=== PATIENT | male | born 1945 | race Caucasian/White ===

== ENCOUNTER 2016-07-25 23:06 | Inpatient (IN) | payer OTHER ==
[2016-07-25 23:55] LABS: EOSINOPHIL 1.7 % (0-4.5); MCH 29.8 pg (25.7-33.7); MCHC 33.8 g/dl (32.0-35.9); MEAN CELL VOLUME 88.1 fl (80-96); MEAN PLT VOLUME 8.2 fl (7.5-11.1); NEUTROPHILS 49.9 % (42.8-82.8); PLATELET COUNT 169 K/MM3 (134-434); RDW 15.4 % (11.9-15.9); WHITE BLOOD COUNT 3.7 K/mm3 (4.0-10.0)
[2016-07-26 00:10] LABS: INR 1.01 (0.82-1.09); PROTHROMBIN TIME (PATIENT) 11.1 SEC (9.98-11.88)
[2016-07-26 00:36] LABS: ALBUMIN 3.8 g/dl (3.4-5.0); ALK PHOS 81 U/L (45-117); ANION GAP 9 (8-16); BILIRUBIN,TOTAL 0.5 mg/dL (0.2-1.0); CALCIUM 8.8 mg/dL (8.5-10.1); CO2 26 mmol/L (21-32); COCKROFT - GAULT 129.7; CREATININE 0.7 mg/dL (0.7-1.3); GLUCOSE,RANDOM 97 mg/dL (74-106); SGOT/AST 15 U/L (15-37); SGPT/ALT 17 U/L (12-78); TOT PROT 6.9 g/dl (6.4-8.2)
[2016-07-26] MEDS ORDERED: SODIUM CHLORIDE 1,000 ML IV STA (00:46)
--- NOTE | 2016-07-26 01:46 | PDOC ---
History of Present Illness - General History Source: Patient, Family, Old Records Exam Limitations: No Limitations - History of Present Illness Initial Comments: 07/26/16 01:46 The patient is a 70 year old male presenting with his family, with a significant past medical history of HTN Hepatitis C, chronic back pain, and stroke (with left-sided residual numbness), who presents to the emergency department with episodes of spitting blood that started today. He reports that as he arrived into the ED the bleeding had subsided. He also reports that he had an endoscopy 1 month ago. The patient denies chest pain, shortness of breath, headache and dizziness. Denies fever, chills, nausea, vomit, diarrhea and constipation. Allergies: None Past surgical history: Appendectomy, abdominal surgery due to ulcer, lower back surgery Social history: Cigarette use (pack a day) <Arnulfo Ramirez - Last Filed: 07/26/16 01:46> <Mai Das - Last Filed: 08/01/16 02:34> - General Chief Complaint: Vomiting Blood Stated Complaint: SPITTING BLOOD Time Seen by Provider: 07/25/16 23:12 Past History <Arnulfo Ramirez - Last Filed: 07/26/16 01:46> - Past Medical History CVA: Yes Hypercholesterolemia: Yes Psychiatric Problems: Yes (DEPRESSION) - Surgical History Abdominal Surgery: Yes (STOMACH EXCISION DUE TO ULCER) Appendectomy: Yes - Psycho/Social/Smoking Cessation Hx Suicidal Ideation: No Smoking History: Current every day smoker Have you smoked in the past 12 months: Yes Number of Cigarettes Smoked Daily: 10 Information on smoking cessation initiated: No 'Breaking Loose' booklet given: 03/11/14 Hx Alcohol Use: No Drug/Substance Use Hx: No <Mai Das - Last Filed: 08/01/16 02:34> - Past Medical History Allergies/Adverse Reactions: Allergies Allergy/AdvReac Type Severity Reaction Status Date / Time No Known Allergies Allergy Verified 07/25/16 23:25 Home Medications: Ambulatory Orders Gabapentin [Neurontin] 900 mg PO QID 03/03/14 Clopidogrel Bisulfate [Plavix -] 75 mg PO DAILY 07/26/16 Lisinopril 10 mg PO DAILY 07/26/16 Sertraline HCl [Zoloft -] 50 mg PO DAILY 07/26/16 Tamsulosin HCl [Flomax] 0.4 mg PO DAILY 07/26/16 Fentanyl 12 mcg TD Q27H 07/29/16 Folic Acid 1 mg PO DAILY 07/29/16 Miscellaneous Medical Supply [Outpatient Order] 1 each ASDIR #1 misc Oxycodone HCl 10 mg PO TID PRN 07/29/16 Oxycodone HCl 20 mg PO AM PRN 07/29/16 Simvastatin 40 mg PO HS 07/29/16 Review of Systems - Review of Systems Able to Perform ROS?: Yes Comments:: 07/26/16 01:46 GENERAL/CONSTITUTIONAL: No fever or chills. No weakness. HEAD, EYES, EARS, NOSE AND THROAT: No change in vision. No ear pain or discharge. No sore throat. CARDIOVASCULAR: No chest pain or shortness of breath RESPIRATORY: (+)Hemoptysis. No cough, wheezing GASTROINTESTINAL: No nausea, vomiting, diarrhea or constipation. GENITOURINARY: No dysuria, frequency, or change in urination. MUSCULOSKELETAL: No joint or muscle swelling or pain. No neck or back pain. SKIN: No rash NEUROLOGIC: No headache, vertigo, loss of consciousness, or change in strength/ sensation. ENDOCRINE: No increased thirst. No abnormal weight change HEMATOLOGIC/LYMPHATIC: No anemia, easy bleeding, or history of blood clots. ALLERGIC/IMMUNOLOGIC: No hives or skin allergy. <Arnulfo Ramirez - Last Filed: 07/26/16 01:46> *Physical Exam - Vital Signs Last Vital Signs Temp Pulse Resp BP Pulse Ox 98.2 F 83 20 146/72 96 07/25/16 23:25 07/25/16 23:25 07/25/16 23:25 07/25/16 23:25 07/25/16 23:25 - Physical Exam Comments: 07/26/16 01:46 GENERAL: Awake, alert, and fully oriented, in no acute distress HEAD: No signs of trauma, normocephalic, atraumatic EYES: PERRLA, EOMI, sclera anicteric, conjunctiva clear ENT: (+) Left mandibular ridge area of maseration, has not been wearing his dentures. Auricles normal inspection, hearing grossly normal, nares patent. Moist mucosa NECK: Normal ROM, supple, no lymphadenopathy, JVD, or masses LUNGS: No distress, speaks full sentences, clear to auscultation bilaterally HEART: Regular rate and rhythm, normal S1 and S2, no murmurs, rubs or gallops, peripheral pulses normal and equal bilaterally. ABDOMEN: Soft, nontender, normoactive bowel sounds. No guarding, no rebound. No masses EXTREMITIES: Normal inspection, Normal range of motion, no edema. No clubbing or cyanosis. NEUROLOGICAL: Cranial nerves II through XII grossly intact. Normal speech, normal gait, no focal sensorimotor deficits SKIN: Warm, Dry, normal turgor, no rashes or lesions noted. <Arnulfo Ramirez - Last Filed: 07/26/16 01:46> - Vital Signs Last Vital Signs Temp Pulse Resp BP Pulse Ox 98.2 F 83 20 146/72 96 07/25/16 23:25 07/25/16 23:25 07/25/16 23:25 07/25/16 23:25 07/25/16 23:25 <Mai Das - Last Filed: 08/01/16 02:34> ED Treatment Course - LABORATORY CBC & Chemistry Diagram: 07/25/16 23:42 07/25/16 23:42 - ADDITIONAL ORDERS Additional order review: Laboratory Results 07/25/16 07/25/16 23:42 23:42 INR 1.01 Sodium 136 Potassium 3.9 Chloride 101 Carbon Dioxide 26 D Anion Gap 9 BUN 10 Creatinine 0.7 Creat Clearance w eGFR > 60 Random Glucose 97 Calcium 8.8 Total Bilirubin 0.5 D AST 15 ALT 17 Alkaline Phosphatase 81 Total Protein 6.9 Albumin 3.8 07/25/16 23:42 RBC 4.55 MCV 88.1 MCHC 33.8 RDW 15.4 MPV 8.2 Neutrophils % 49.9 Lymphocytes % 38.6 D Monocytes % 8.8 Eosinophils % 1.7 Basophils % 1.0 - Medications Given in the ED: ED Medications Discontinued Medications Generic Name Dose Route Start Last Admin Trade Name Freq PRN Reason Stop Dose Admin Sodium Chloride 1,000 mls @ 1,000 mls/hr 07/26/16 00:46 07/26/16 01:05 Normal Saline - IV 07/26/16 01:45 1,000 mls/hr ASDIR STA Administration <Arnulfo Ramirez - Last Filed: 07/26/16 01:46> - LABORATORY CBC & Chemistry Diagram: 07/29/16 07:30 07/29/16 07:30 - ADDITIONAL ORDERS Additional order review: Laboratory Results 07/25/16 07/25/16 23:42 23:42 INR 1.01 Sodium 136 Potassium 3.9 Chloride 101 Carbon Dioxide 26 D Anion Gap 9 BUN 10 Creatinine 0.7 Creat Clearance w eGFR > 60 Random Glucose 97 Calcium 8.8 Total Bilirubin 0.5 D AST 15 ALT 17 Alkaline Phosphatase 81 Total Protein 6.9 Albumin 3.8 07/25/16 23:42 RBC 4.55 MCV 88.1 MCHC 33.8 RDW 15.4 MPV 8.2 Neutrophils % 49.9 Lymphocytes % 38.6 D Monocytes % 8.8 Eosinophils % 1.7 Basophils % 1.0 - RADIOLOGY Radiology Studies Ordered: Category Date Time Status SOFT TISSUE NECK CT WITH CONTR [CT] Stat CT Scan 07/26/16 00:02 Taken - Medications Given in the ED: ED Medications Discontinued Medications Generic Name Dose Route Start Last Admin Trade Name Freq PRN Reason Stop Dose Admin Sodium Chloride 1,000 mls @ 1,000 mls/hr 07/26/16 00:46 07/26/16 01:05 Normal Saline - IV 07/26/16 01:45 1,000 mls/hr ASDIR STA Administration <ThiagoMai Christina - Last Filed: 08/01/16 02:34> Medical Decision Making - Medical Decision Making 07/26/16 02:44 daughter Benedict Tran cell [phone] 07/26/16 03:25 70-year-old male presents with oral pharyngeal bleeding this evening. He denied any recent trauma. He said that he was not coughing at this time. He said essentially he was just seated at rest and his mouth filled with blood. On exam, he has both maxillary, mandibular arches are edentulous. He does not routinely wear his dentures He is on Plavix, oxycodone,, fentanyl patch, gabapentin Past medical history includes hepatitis C, several strokes, chronic neuropathic pain PCP is located [facility] Denied any fever, chills, nausea, vomiting, diarrhea, chest pain, abdominal pain , or cough. He denies any recent nosebleeds. In reviewing his labs, he was not anemic. His chemistries are essentially unremarkable. Scan of the neck revealed a mass at the base of his left tongue that was suspicious for neoplasm pt was admitted for concern of further bleeding and ENT consult 08/01/16 02:33 <Mai Das - Last Filed: 08/01/16 02:34> *DC/Admit/Observation/Transfer - Attestations Scribe Attestion: 07/26/16 01:47 Documentation prepared by Arnulfo Ramirez, acting as medical review specialist for Mai Das MD <Arnulfo Ramirez - Last Filed: 07/26/16 01:46> - Discharge Dispostion Admit: Yes <Mai Das - Last Filed: 08/01/16 02:34> Diagnosis at time of Disposition: Neuropathic pain, Tongue mass, Throat hemorrhage - Discharge Dispostion Disposition: HOME Condition at time of disposition: Improved - Prescriptions - Referrals
--- NOTE | 2016-07-26 02:35 | HP ---
CHIEF COMPLAINT: hemorrhage from the mouth PCP: Dr. Savannah Lindsey HISTORY OF PRESENT ILLNESS: 70 yr old man with HTN, hx of CVA x2 with residual unsteady gait, chronic neuropathic pain syndrome, hx of GI ulcers, presents with sudden bleeding from his mouth. He was sitting watching TV around 11pm when he spit out some blood and then his whole mouth filled with bright red blood, his daughter immediately brought him to the ED. He had eaten apple streusal around 8pm and an egg sandwich earlier for dinner around 8pm but did not finish either due to poor appetite. For the last month he has had poor appetite and has noticed weight loss and his clothes feeling looser, poor appetite is unusual for him. Two weeks he underwent endoscopy and colonoscopy by GI at [facility] for routine GI follow-up. He had dentures but does not use them on a regular basis, has not been to dentist in years. he is careful to eat soft foods, denies fish bones/hard chips or anything with rough edges. Denies pus in his mouth, pain with chewing/swallowing, swelling on his mouth, difficulty swalllowing/breathing, fever, facial pain, throat pain, cough, palpitations, chest pain, hematuria, falls, change in vision, sob. Has noticed easy bruising since starting plavix few years ago, especially on his lower legs and feet. ER course was notable for: (1) soft tissue neck CT Recent Travel: none PAST MEDICAL HISTORY: CVA: 2000, 2013 Bipolar disorder Hepatitis C - treated with "injections" 10 yrs ago, says he no longer has Hep C HTN HLD PAST SURGICAL HISTORY: appendectomy - age 10 thyroid cyst removal - "grammar school age" "ulcer operation" - duodenal and perforated peptic ulcer - Lumbar discectomy s/p [facility] 1989 Social History: Smoking: current everyday 2pk/day since he was 18 Alcohol: quit in s, was a heavy drinker in the past for few years Drugs: occasional marijuana smoker Family History: father from [place] age 65, brother from possible lung [place] Allergies No Known Allergies Allergy (Verified 07/25/16 23:25) Initial Vital Signs Temp Pulse Resp BP Pulse Ox 98.2 F 83 20 146/72 96 07/25/16 23:25 07/25/16 23:25 07/25/16 23:25 07/25/16 23:25 07/25/16 23:25 HOME MEDICATIONS: Went off zoloft for past year out of his own accord, recently started taking 50mg daily because he started to become "snappy" and easily agitated at family Home Medications Medication Instructions Recorded Simvastatin [Zocor] 80 mg PO HS 12/09/13 Clopidogrel Bisulfate [Plavix -] 75 mg PO DAILY 03/03/14 Docusate Sodium [Colace -] 100 mg PO DAILY 03/03/14 Gabapentin [Neurontin] 600 mg PO QID 03/03/14 Lisinopril [Prinivil] 5 mg PO DAILY 03/03/14 Oxycodone HCl/Acetaminophen 1 - 2 tab PO Q6H 03/03/14 [Percocet 10-325 mg Tablet] Sertraline HCl [Zoloft -] 100 mg PO DAILY 03/03/14 Aspirin Coated [Ecotrin -] 325 mg PO DAILY #30 tablet. 03/05/14 Folic Acid - 400 mcg PO DAILY #0 03/05/14 REVIEW OF SYSTEMS CONSTITUTIONAL: Present: loss of appetite, unintentional weight loss Absent: fever, chills, diaphoresis, generalized weakness, malaise HEENT: Absent: rhinorrhea, nasal congestion, throat pain, throat swelling, difficulty swallowing, mouth swelling, ear pain, eye pain, visual changes CARDIOVASCULAR: Absent: chest pain, syncope, palpitations, irregular heart rate, lightheadedness , peripheral edema RESPIRATORY: Absent: cough, shortness of breath, dyspnea with exertion, orthopnea, wheezing, stridor, hemoptysis GASTROINTESTINAL: Absent: abdominal pain, abdominal distension, nausea, vomiting, diarrhea, constipation, melena, hematochezia GENITOURINARY: Absent: dysuria, frequency, urgency, hesitancy, hematuria, flank pain, genital pain MUSCULOSKELETAL: Absent: myalgia, arthralgia, joint swelling, back pain, neck pain SKIN: Absent: rash, itching, pallor HEMATOLOGIC/IMMUNOLOGIC: Present: easy bruising, Absent: easy bleeding, lymphadenopathy, frequent infections ENDOCRINE: Absent: unexplained weight gain, heat intolerance, cold intolerance NEUROLOGIC: Present: unsteady gait, Absent: headache, focal weakness or paresthesias, dizziness, seizure, mental status changes, bladder or bowel incontinence PSYCHIATRIC: Absent: anxiety, depression, suicidal or homicidal ideation, hallucinations. PHYSICAL EXAMINATION Vital Signs - 24 hr 07/25/16 23:25 Temperature 98.2 F Pulse Rate 83 Respiratory 20 Rate Blood Pressure 146/72 O2 Sat by Pulse 96 Oximetry (%) GENERAL: Awake, alert, and fully oriented, in no acute distress. HEAD: Normal with no signs of trauma. no frontal/ethmoid/maxially sinus tenderness. EYES: Pupils equal, round and reactive to light, extraocular movements intact, sclera anicteric, conjunctiva clear. No lid lag. EARS, NOSE, THROAT: Ears normal, nares patent with left anterior nostril with scant dried blood, oropharynx with bright red blood originating from left lower base of junction between tongue and left cheek. no pus, erythema, ulcers, pigmentation changes noted. Moist mucous membranes, no lacerations on tongue or buccal mucosa. edentulism. NECK: Normal range of motion, supple without lymphadenopathy, JVD, or masses. no axillary/cervical/mandibular/occipital lymphadenopathy. LUNGS: Breath sounds equal, clear to auscultation bilaterally. No wheezes, and no crackles. No accessory muscle use. HEART: Regular rate and rhythm, normal S1 and S2 without murmur, rub or gallop. ABDOMEN: Soft, nontender, not distended, normoactive bowel sounds, no guarding, no rebound, no masses. well-healed periembilcal midline scar, two lateral laproscopic scars. MUSCULOSKELETAL: Normal range of motion at all joints. No bony deformities or tenderness. No CVA tenderness. UPPER EXTREMITIES: 2+ pulses, warm, well-perfused. No cyanosis. No clubbing. No peripheral edema. LOWER EXTREMITIES: 2+ pulses, warm, well-perfused. No calf tenderness. No peripheral edema. few scattered dark colored bruises 2-3cm on anterior right foot and wynne. left 1st toe with dark thickened toenail. NEUROLOGICAL: Cranial nerves II-XII intact. Normal speech. facial symmetry, 5/ 5 strength in b/l hand wire communications engineer/dorsi and plantar flexion. decreased sensation in left side of body in face/ue/le. PSYCHIATRIC: Cooperative. Good eye contact. Appropriate mood and affect. SKIN: Warm, dry, normal turgor, no rashes noted, normal capillary refill. Laboratory Results - last 24 hr 07/25/16 07/25/16 07/25/16 23:42 23:42 23:42 WBC 3.7 L RBC 4.55 Hgb 13.5 Hct 40.0 MCV 88.1 MCHC 33.8 RDW 15.4 Plt Count 169 MPV 8.2 Neutrophils % 49.9 Lymphocytes % 38.6 D Monocytes % 8.8 Eosinophils % 1.7 Basophils % 1.0 INR 1.01 Sodium 136 Potassium 3.9 Chloride 101 Carbon Dioxide 26 D Anion Gap 9 BUN 10 Creatinine 0.7 Creat Clearance w eGFR > 60 Random Glucose 97 Calcium 8.8 Total Bilirubin 0.5 D AST 15 ALT 17 Alkaline Phosphatase 81 Total Protein 6.[address] soft tissue of neck: mass like area of enhancement seen at the base of the tongue on the left (images 56 through 63) seen medial to the mylohyoid. 1.5-1.9 cm, a central ovoid hypoventilation focus measures approx 3-4mm in diameter and could represent a calculus or possibly an aneurysm. no cervial adenopathy. no collection or hematoma is seen in the soft tissues of the neck. ASSESSMENT/PLAN: 70 yr old man with HTN, hx of CVA on full does ASA/plavix, current smoker presents with oropharyngeal hemorrhage found to have mass admitted for further evaluation - medications will need to be verified in the morning, patient does not have his list with him - placed on fall precautions d/t unsteady gait #Orophyarngeal mass/hemorrhage - NPO except for meds - consult for ENT, Dr. Rivera - difficult to pack given location of bleed and concern for choking on any packing material that may be placed there, currently patient is comfortable/not in respiratory distress - it is a possibility that he may have had an abscess due to minor trauma during endoscopy but given extensive smoking history, suspicious for malignancy , may need biopsy. - repeat CBC to monitor H/H - hold anticoagulation(plavix and ASA 325mg) - zofran prn for nausea due to swallowing of blood #HTN - lisinopril 10mg po daily #HLD - Lipitor 80mg po 1 tablet HS #Neuropathic pain, chronic - percocet 10 mg q6hr - fentanyl patch 12mg q72hr #Bipolar disorder - zoloft 50mg po qdaily #nicotine dependence - smoking cessation counseling provided - pt declined NRT, states understanding that he cannot leave hospital room to smoke #DVT - SCD's, avoid medical ac d/t active bleed #diet - npo except meds/ice chips Visit type - Emergency Visit Emergency Visit: Yes ED Registration Date: 07/26/16 Care time: The patient presented to the Emergency Department on the above date and was hospitalized for further evaluation of their emergent condition. - New Patient This patient is new to me today: Yes Date on this admission: 07/26/16 - Critical Care Critical Care patient: No
[2016-07-26] MEDS ORDERED: ONDANSETRON 4 MG/2 ML VIAL IVPUSH PRN (03:54)
[2016-07-26] MEDS ORDERED: FENTANYL PATCH WASTE TD PRN (04:02)
[2016-07-26 04:10] LABS: INR 1.06 (0.82-1.09); PROTHROMBIN TIME (PATIENT) 11.7 SEC (9.98-11.88)
[2016-07-26 04:40] VITALS: BMI 25.9
--- NOTE | 2016-07-26 05:32 | PN ---
Teaching Attending Note Name of Resident: Sandeep Richards ATTENDING PHYSICIAN STATEMENT I saw and evaluated the patient. I reviewed the resident's note and discussed the case with the resident. I agree with the resident's findings and plan as documented. SUBJECTIVE: 70 year old male presents c/o 1 day history of bleeding from posterior aspect of his tongue . Denies dizziness Denies syncope Denies dyspnea PAST MEDICAL HISTORY: CVAx 2 Bipolar disorder Hepatitis C remote HTN HLD PAST SURGICAL HISTORY: appendectomy thyroid cyst removal duodenal and perforated peptic ulcer Lumbar discectomy recent Endoscopy Social History: Smokin p/y Alcohol: history of abuse, quit in 1969 Drugs: occasional marijuana smoker Family History : Father [place] - 65 yo Brother - lung [place] Allergies : NKDA MEDS: Home Medications Medication Instructions Recorded Gabapentin [Neurontin] 900 mg PO QID 03/03/14 Oxycodone HCl/Acetaminophen 1 - 2 tab PO Q6H 03/03/14 [Percocet 10-325 mg Tablet] Clopidogrel Bisulfate [Plavix -] 75 mg PO DAILY 07/26/16 Sertraline HCl [Zoloft -] 50 mg PO DAILY 07/26/16 OBJECTIVE: Vital Signs Temperature 97.9 F 07/26/16 02:35 Pulse Rate 74 07/26/16 02:35 Respiratory Rate 18 07/26/16 02:35 Blood Pressure 142/66 07/26/16 02:35 O2 Sat by Pulse Oximetry (%) 96 07/26/16 02:35 GENERAL: Awake, alert, and fully oriented HEAD: Normal with no signs of trauma. EYES: Pupils equal, round and reactive to light EARS, NOSE, THROAT: Poorly visible ulceration of posterior buccal mucose and the base of the tongue on the left , blood clots. NECK: no axillary/cervical/mandibular/occipital lymphadenopathy. LUNGS: Breath sounds equal, clear to auscultation bilaterally. No wheezes, and no crackles. No accessory muscle use. HEART: Regular rate and rhythm, normal S1 and S2 without murmur, rub or gallop. ABDOMEN: Soft, nontender, not distended, normoactive bowel sounds, no guarding, no rebound, no masses. MUSCULOSKELETAL: Normal range of motion at all joints. No bony deformities or tenderness. No CVA tenderness. UPPER EXTREMITIES: 2+ pulses, No cyanosis. No clubbing. No peripheral edema. LOWER EXTREMITIES: 2+ pulses, warm, well-perfused. No calf tenderness. No peripheral edema. Onychomycosis. NEUROLOGICAL: Cranial nerves II-XII intact. Normal speech. facial symmetry, 5/ 5 strength in b/l hand material planning analyst/dorsi and plantar flexion. PSYCHIATRIC: Cooperative. Good eye contact. Appropriate mood and affect. SKIN: Warm, dry, normal turgor, no rashes noted, normal capillary refill. CBC, BMP 07/25/16 23:42 07/25/16 23:42 Scan of the neck revealed a mass at the base of his left tongue that was suspicious for neoplasm ASSESSMENT AND PLAN: 1. Bleeding from the mass/ulceration of the tongue - in a patient with history of smoking, suspicious for malignancy . No respiratory compromise of airway obstruction is present at this time. - aspiration precautions - monitor hemoglobin for possible drop due to an ongoing oozing - ENT evaluation for possible packing and biopsy - NPO - hold plavix for now 2 DVT ppx with SCD
[2016-07-26] MEDS ORDERED: ACETAMINOPHEN 1000 MG/100 ML VIAL (NON FORMULARY) IVPB ONE (06:08)
[2016-07-26] MEDS: oxyCODONE HCL 5 MG TABLET PO SCH ×2 (06:10→11:41)
[2016-07-26] MEDS: ACETAMINOPHEN 325 MG TABLET (FP) PO SCH (06:11)
[2016-07-26] MEDS: SODIUM CHLORIDE 1,000 ML IV SCH (06:28)
[2016-07-26] MEDS: GABAPENTIN 300 MG CAPSULE (FP) PO SCH ×4 (06:33→23:39)
[2016-07-26 07:15] LABS: MCH 30.5 pg (25.7-33.7); MCHC 34.4 g/dl (32.0-35.9); MEAN CELL VOLUME 88.8 fl (80-96); MEAN PLT VOLUME 8.5 fl (7.5-11.1); PLATELET COUNT 159 K/MM3 (134-434); RDW 16.1 % (11.9-15.9)
--- NOTE | 2016-07-26 10:00 | RAPID ---
Physical Examination Vital Signs: Vital Signs Temperature 97.9 F 07/26/16 02:35 Pulse Rate 106 H 07/26/16 08:30 Respiratory Rate 18 07/26/16 08:30 Blood Pressure 154/68 07/26/16 09:30 O2 Sat by Pulse Oximetry (%) 96 07/26/16 02:35 Constitutional: Yes: Anxious, Moderate Distress HENT: Yes: Atraumatic, Other (oropharynx covered with bright red blood, blood seen near posterior buccal mucosa and the left base of the tongue) Cardiovascular: Yes: Regular Rate and Rhythm, S1, S2 Respiratory: Yes: Regular Gastrointestinal: Yes: Normal Bowel Sounds, Soft Peripheral Pulses WNL: Yes Integumentary: Yes: WNL Neurological: Yes: Alert, Oriented ...Motor Strength: WNL Psychiatric: Yes: Alert, Oriented Labs: JEOVANNY, DAVID 07/26/16 06:20 Rapid Response - Rapid Response Assessment: rapid response called on a 70year old male with pmh of CVA x2 with residual unsteady gait, chronic neuropathic pain syndrome, GI ulcers who presented to the ED with sudden bleeding from his mouth.The patient was in the bathroom having a bowel movement and he felt lightheaded, weak as if he was going to pass out. the bleeding in his moth has somewhat increased, he is swallowing/ spitting the blood and vomited a few times as well. Pt denies any constipation/ diarrhea, no hematochezia, melena, no hemoptysis. No chest pain, palpitation, no shortness of breath, no new focal neurological deficits. Pt is on plavix at home, last use was yesterday. CBC, [facility] 07/26/16 06:20 07/25/16 23:42 Impression Presyncope r/o hypovolemic, hemorrhagic shock from oral cavity bleeding vs Vasovagal Plan resume IV fluid CBC in 2 hours Consider Platelets transfusion Consider PRBC transfusion Consider FFP transfusion ENT consult stat Primary team made aware, the will follow up any further care for this patient.
[2016-07-26] MEDS ORDERED: METOCLOPRAMIDE HCL INJECTION 10 MG/2 ML VIAL IVPUSH ONE (11:02)
[2016-07-26] MEDS ORDERED: morphine CARPU-JECT 2 MG/1 ML DISP.SYRIN IVPUSH PRN (11:08)
[2016-07-26] MEDS: SERTRALINE HCL 50 MG TABLET (FP) PO SCH (11:41)
[2016-07-26] MEDS: LISINOPRIL 10 MG TABLET (FP) PO SCH (11:41)
[2016-07-26] MEDS ORDERED: METOCLOPRAMIDE HCL INJECTION 10 MG/2 ML VIAL IVPB ONE (11:45)
--- NOTE | 2016-07-26 12:25 | CON.ENT ---
Consult Consult Specialty:: ENT Referred by:: Dr. Richards Reason for Consultation:: oral bleeding - History of Present Illness Chief Complaint: bleeding from mouth/throat History of Present Illness: 70 yo M with hx CVA, on Plavix, hx chronic neuropathy rx opioid analgesics prn yesterday presented with oral bleeding, no precipitating factors brought to [facility] ER H/H stable, CT scan neck shows suspicious area left base of tongue to oropharynx 2 cm faintly enhancing airway stable, pt admitted for further evaluation and management. this morning pt had significant oral bleeding Hgb 6 AM was 12.9, plt count 120's, platelet transfusion ordered subsided but then bleeding recurred with significant active bleeding, expectoration of clots. 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 - Past Surgical History Past Surgical History: Yes: Appendectomy Additional Surgical History: thyroid cyst removal (age 10) - Alcohol/Substance Use Hx Alcohol Use: No History of Substance Use: reports: None - Smoking History Smoking history: Current every day smoker Have you smoked in the past 12 months: Yes Aproximately how many cigarettes per day: 10 - Social History ADL: Independent Home Medications - Allergies Allergies/Adverse Reactions: Allergies Allergy/AdvReac Type Severity Reaction Status Date / Time No Known Allergies Allergy Verified 07/25/16 23:25 - Home Medications Home Medications: Ambulatory Orders Gabapentin [Neurontin] 900 mg PO QID 03/03/14 Oxycodone HCl/Acetaminophen [Percocet 10-325 mg Tablet] 1 - 2 tab PO Q6H Clopidogrel Bisulfate [Plavix -] 75 mg PO DAILY 07/26/16 Lisinopril 10 mg PO DAILY 07/26/16 Sertraline HCl [Zoloft -] 50 mg PO DAILY 07/26/16 Tamsulosin HCl [Flomax] 0.4 mg PO DAILY 07/26/16 Family Disease History - Family Disease History Family Disease History: Heart Disease: Father ([place] at 65), Other: Mother (old age ) Physical Exam-ENT Vital Signs: Vital Signs Temperature 97.9 F 07/26/16 02:35 Pulse Rate 106 H 07/26/16 08:30 Respiratory Rate 18 07/26/16 08:30 Blood Pressure 154/68 07/26/16 09:30 O2 Sat by Pulse Oximetry (%) 96 07/26/16 02:35 Constitutional: Yes: Well Nourished, Anxious, Mild Distress Head: Yes: WNL Face: Yes: WNL Eyes: Yes: WNL Nose: Yes: Other (dry blood left and right nostrils, no active bleeding, breathing ok) Nasal Passage: Yes: WNL Oral/Pharynx: Yes: Other (active bleeding; tongue mobile, poor dentition, no oral cavity lesions ++left tonsil fossa bleeding, also pedunculated left oropharyngeal polypoid lesion (smooth, white); tongue protrudes midline, voice clear, active gag reflex, no stridor or respiratory distress) Outer Ear: Yes: WNL Neck: Yes: WNL Respiratory: Yes: WNL Imaging - Results Chest X-ray: Report Reviewed, Image Reviewed Cat Scan: Report Reviewed, Image Reviewed (2 cm suspicious lesion let base of tongue/oropharynx 1.2 cm paratracheal node no other mass or adenopathy described ) Problem List - Problems (1) Throat hemorrhage Assessment/Plan: new onset active bleeding left tonsil fossa site identified control of oropharyngeal/hypopharyngeal hemorrhage performed: topical xylocaine 4% silver nitrate cauterization, direct pressure, gelfoam packing placed controlled eventually pt has active gag reflex which sometimes accelerated bleeding during control procedure controlled, rechecked at intervals up to 30 minutes after, no recurrence of bleeding, pt resting comfortably Plavix use adds to bleeding potential (last dose 5-2-17 6 am) suspected site is the abnormal area on CT scan, oropharyngeal/?hypopharyngeal neoplasm suspected pt at risk because of long smoking history (1 ppd x 40 years) SaO2 94% RA, 98% on O2 2 L NC HR 95-105 BP 150's systolic 1:00 pm: pt reports more bleeding exam: fresh blood left oropharynx Recommend: to OR today for direct laryngoscopy, control of pharyngeal hemorrhage , biopsy discussed in detail with pt and his brother Hank no prior problems with anesthesia, has been NPO since admission potential complications including but not limited to anesthesia, bleeding, infection, pain, gum irritation (edentulous) discussed in detail. questions answered fully. discussed with anesthesiologists Critical Care time: 90 minutes Henry Rivera MD FACS Code(s): R04.1 - HEMORRHAGE FROM THROAT (2) Tongue mass Assessment/Plan: no known history of prior problem identified on CT scan after admission through ER last night pt at risk for upper airway malignancy because of long smoking history (40 pack yrs) pt will need laryngoscopy, biopsy of area in question deferred for today because of acute active bleeding no palpable adenopathy, no pathologically enlarged lymph nodes described on CT scan of neck report CXR no masses, mild COPD changes. Code(s): R22.0 - LOCALIZED SWELLING, MASS AND LUMP, HEAD
[2016-07-26 12:55] LABS: MCH 30.3 pg (25.7-33.7); MCHC 34.1 g/dl (32.0-35.9); MEAN PLT VOLUME 8.4 fl (7.5-11.1); PLATELET COUNT 222 K/MM3 (134-434); RDW 15.3 % (11.9-15.9)
--- NOTE | 2016-07-26 12:59 | MSN ---
Progress Note (SOAP) - Subjective Chief Complaint: Bleeding from mouth History of Present Illness: Patient is a 70 y/o male w/ PMHx HTN, CVA (2001), TIA (~2014), chronic left sided neuropathic pain, GI ulcers, and current every day smoker who is admitted for hemorrhagic mass found in the left oropharynx. Pt was sitting upright in bed this morning; awake, alert, in no acute distress. Pt continues to bleed from the lesion in his oropharynx. Pt admits to unintentional weight loss and decreased appetite for the last month. Complains of new onset RODRIGUEZ/SOB/Nausea. Denies f/cp/abd pain/pain with swallowing or eating/impaired hearing/new onset visual changes. - Current Medications Current Medications: Active Medications Acetaminophen (Tylenol -) 325 mg PO Q6HPO [facility] Last Admin: 07/26/16 06:11 Dose: 325 mg Atorvastatin Calcium (Lipitor -) 80 mg PO HS [facility] Fentanyl (Duragesic 12mcg Patch -) 1 patch TD Q72H [facility] Stop: 08/02/16 16:59 Gabapentin (Neurontin -) 900 mg PO Q6HPO [facility] Last Admin: 07/26/16 11:41 Dose: Not Given Sodium Chloride (Normal Saline -) 1,000 mls @ 75 mls/hr IV ASDIR [facility] Last Admin: 07/26/16 06:28 Dose: 75 mls/hr Lisinopril (Prinivil) 10 mg PO DAILY [facility] Last Admin: 07/26/16 11:41 Dose: Not Given Miscellaneous (Duragesic Patch Waste) 1 each TD PRN PRN PRN Reason: PAIN Morphine Sulfate (Morphine Injection -) 1 mg IVPUSH Q4H PRN PRN Reason: PAIN Last Admin: 07/26/16 11:37 Dose: 1 mg Ondansetron HCl (Zofran Injection) 4 mg IVPUSH Q6H PRN PRN Reason: NAUSEA AND/OR VOMITING Last Admin: 07/26/16 11:35 Dose: 4 mg Oxycodone HCl (Roxicodone -) 10 mg PO Q6HPO [facility] Last Admin: 07/26/16 11:41 Dose: Not Given Sertraline HCl (Zoloft -) 50 mg PO DAILY [facility] Last Admin: 07/26/16 11:41 Dose: Not Given - Objective Vital Signs: Vital Signs Temperature 97.9 F 07/26/16 02:35 Pulse Rate 106 H 07/26/16 08:30 Respiratory Rate 18 07/26/16 08:30 Blood Pressure 154/68 07/26/16 09:30 O2 Sat by Pulse Oximetry (%) 96 07/26/16 02:35 Constitutional: Yes: No Distress, Calm Eyes: Yes: Conjunctiva Clear, EOM Intact HENT: Yes: Normocephalic, Other (Hemorrhagic lesion found at the left tongue base that extends and involves the left lateral wall of oropharynx) Neck: Yes: Supple, Trachea Midline Cardiovascular: Yes: Tachycardia, S1. No: S2 (faint) Respiratory: Yes: Regular, CTA Bilaterally Gastrointestinal: Yes: Normal Bowel Sounds, Soft. No: Tenderness Peripheral Pulses WNL: Yes Peripheral Pulses: Left Radial: 2+, Right Radial: 2+, Left Doralis Pedis: 2+, Right Dorsalis Pedis: 2+ Edema: No Neurological: Yes: Alert, Oriented, Cran Nerves II-XII Intact, Loss of Sensation (left sided- pt states this is normal 2/2 pain medications) Psychiatric: Yes: Alert, Oriented Labs Lab Results: CBC,CMP WBC 6.0 K/mm3 (4.0-10.0) 07/26/16 12:35 RBC 3.81 M/mm3 (4.00-5.60) L 07/26/16 12:35 Hgb 11.6 GM/dL (11.7-16.9) L D 07/26/16 12:35 Hct 33.9 % (35.4-49) L 07/26/16 12:35 MCV 89.0 fl (80-96) 07/26/16 12:35 MCHC 34.1 g/dl (32.0-35.9) 07/26/16 12:35 RDW 15.3 % (11.9-15.9) 07/26/16 12:35 Plt Count 222 K/MM3 (134-434) D 07/26/16 12:35 MPV 8.4 fl (7.5-11.1) 07/26/16 12:35 Neutrophils % 49.9 % (42.8-82.8) 07/25/16 23:42 Lymphocytes % 38.6 % (8-40) D 07/25/16 23:42 Monocytes % 8.8 % (3.8-10.2) 07/25/16 23:42 Eosinophils % 1.7 % (0-4.5) 07/25/16 23:42 Basophils % 1.0 % (0-2.0) 07/25/16 23:42 Sodium 136 mmol/L (136-145) 07/25/16 23:42 Potassium 3.9 mmol/L (3.5-5.1) 07/25/16 23:42 Chloride 101 mmol/L (98-107) 07/25/16 23:42 Carbon Dioxide 26 mmol/L (21-32) D 07/25/16 23:42 Anion Gap 9 (8-16) 07/25/16 23:42 BUN 10 mg/dL (7-18) 07/25/16 23:42 Creatinine 0.7 mg/dL (0.7-1.3) 07/25/16 23:42 Creat Clearance w eGFR > 60 (>60) 07/25/16 23:42 POC Glucometer 152 UNITS (()) 07/26/16 09:49 Random Glucose 97 mg/dL (74-106) 07/25/16 23:42 Calcium 8.8 mg/dL (8.5-10.1) 07/25/16 23:42 Total Bilirubin 0.5 mg/dL (0.2-1.0) D 07/25/16 23:42 AST 15 U/L (15-37) 07/25/16 23:42 ALT 17 U/L (12-78) 07/25/16 23:42 Alkaline Phosphatase 81 U/L (45-117) 07/25/16 23:42 Total Protein 6.9 g/dl (6.4-8.2) 07/25/16 23:42 Albumin 3.8 g/dl (3.4-5.0) 07/25/16 23:42 Imaging - Results Chest X-ray: Report Reviewed, Image Reviewed (No acute pathology- no changes when compared to previous x-ray) Cat Scan: Report Reviewed, Image Reviewed (Focal enhancing mass like density ni the left tongue base extending and involving the left lateral wall of oropharynx ) Assessment/Plan Patient is a 70 y/o male w/ PMHx HTN, CVA (2000), TIA (~2015), chronic left sided neuropathic pain, GI ulcers, and current every day smoker who is admitted for hemorrhagic mass found in the left oropharynx. Hemorrhagic mass in oropharynx -NPO -ENT Dr. Rivera consulted: Initial attempts failed to control bleeding with silver nitrate cauterization and gelfoam packing. Recommended OR for direct laryngoscopy to control pharyngeal hemorrhage and biopsy. Risks and benefits were discussed with patient. -Monitor H/H q4h -ASA/Plavix held -transfuse 1 unit of platelets -consider transfusion 1 unit RBCs -IV Zofran prn HTN -Lisinopril 10mg qd HLD -Lipitor 80mg qhs Chronic Pain -IV Morphine 1mg Q4H prn since pt NPO, nauseous, and actively vomiting -Oxycodone 10mg Q6H -Fentanyl Patch 12mg q72h BPH -Tamsulosin ?dose -Confirm with pt pharmacy Bipolar -Zoloft 50mg qd DVT prophylaxis -SCDs
--- NOTE | 2016-07-26 13:18 | PN ---
Physical Exam: SUBJECTIVE: Patient seen and examined Patient resting in bed, in mod-severe distress. afebrile and hemodynamically stable. Has been continuously bleeding from mouth and vomiting blood, reports diffuse pain and sever nausea. Rapid response was called this morning because patient became flushed and dizzy while defacating, near syncopal. vital were stable and it was decided to be vasovagl. ENT evaluated this am. Denies f/c, chest pain, palpitations, sob, cough, dysuria. OBJECTIVE: Vital Signs Period Temp Pulse Resp BP Sys/Najera Pulse Ox Last 24 Hr 106 18 127-154/56-68 GENERAL: The patient is awake, alert, and fully oriented, in no acute distress. HEAD: Normal with no signs of trauma. EYES: PERRL, extraocular movements intact, sclera anicteric, conjunctiva clear. No ptosis. ENT: Ears normal, nares patent, blood in nares, oropharynx bloody, L tonsillar small polyp like lesion or clot, moist mucous membranes. NECK: Trachea midline, full range of motion, supple no cervical or supraclavicular adenopathy LUNGS: Breath sounds equal, clear to auscultation bilaterally, no wheezes, no crackles, no accessory muscle use. HEART: Regular rate and rhythm, S1, S2 without murmur, rub or gallop. ABDOMEN: Soft, nontender, nondistended, normoactive bowel sounds, no guarding, no rebound, no hepatosplenomegaly, no masses. EXTREMITIES: 2+ pulses, warm, well-perfused, no edema. NEUROLOGICAL: Cranial nerves II through XII intact. Normal speech, strength 5/5 b/l, brachial reflexes 2+ b/l, patellar 1+ b/l PSYCH: Normal mood, normal affect. SKIN: Warm, dry Laboratory Results - last 24 hr 07/26/16 07/26/16 07/26/16 03:41 03:41 04:57 WBC RBC Hgb Hct MCV MCHC RDW Plt Count MPV INR 1.06 POC Glucometer Blood Type A POSITIVE A POSITIVE Antibody Screen Negative 07/26/16 07/26/16 07/26/16 06:20 09:49 12:35 WBC 5.0 D 6.0 RBC 4.21 3.81 L Hgb 12.9 11.6 L D Hct 37.4 33.9 L MCV 88.8 89.0 MCHC 34.4 34.1 RDW 16.1 H 15.3 Plt Count 159 222 D MPV 8.5 8.4 INR POC Glucometer 152 Blood Type Antibody Screen Active Medications Generic Name Dose Route Start Last Admin Trade Name Freq PRN Reason Stop Dose Admin Acetaminophen 325 mg 07/26/16 06:15 07/26/16 06:11 Tylenol - PO 325 mg Q6HPO CAYLA Administration Atorvastatin Calcium 80 mg 07/26/16 22:00 Lipitor - PO HS CAYLA Fentanyl 1 patch 07/27/16 17:00 Duragesic 12mcg Patch - TD 08/02/16 16:59 Q72H CAYLA Gabapentin 900 mg 07/26/16 06:30 07/26/16 11:41 Neurontin - PO Not Given Q6HPO CAYLA Sodium Chloride 1,000 mls @ 75 mls/hr 07/26/16 05:00 07/26/16 06:28 Normal Saline - IV 75 mls/hr ASDIR CAYLA Administration Lisinopril 10 mg 07/26/16 10:00 07/26/16 11:41 Prinivil PO Not Given DAILY [facility] Miscellaneous 1 each 07/26/16 04:02 Duragesic Patch Waste TD PRN PRN PAIN Morphine Sulfate 1 mg 07/26/16 11:08 07/26/16 11:37 Morphine Injection - IVPUSH 1 mg Q4H PRN Administration PAIN Ondansetron HCl 4 mg 07/26/16 03:54 07/26/16 11:35 Zofran Injection IVPUSH 4 mg Q6H PRN Administration NAUSEA AND/OR VOMITING Oxycodone HCl 10 mg 07/26/16 06:15 07/26/16 11:41 Roxicodone - PO Not Given Q6HPO [facility] Sertraline HCl 50 mg 07/26/16 10:00 07/26/16 11:41 Zoloft - PO Not Given DAILY [facility] ASSESSMENT/PLAN: CT soft tissue of neck: mass like area of enhancement seen at the base of the tongue on the left (images 56 through 63) seen medial to the mylohyoid. 1.5-1.9 cm, a central ovoid hypoventilation focus measures approx 3-4mm in diameter and could represent a calculus or possibly an aneurysm. no cervial adenopathy. no collection or hematoma is seen in the soft tissues of the neck. 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 and unsteady gait, TIA 2014, on full does ASA /plavix, who presents with oropharyngeal hemorrhage found to have L mylohyoid mass Left Orophyarngeal mass with acute hemorrhage -NPO -ENT hemostasis failed, will proceed to emergency endoscopy today for cauterization and biopsy -suspicious for malignancy in a smoker -monitor h/h -zofran IV nausea -hold plavix and ASA 325mg -1 U platelets now -consider MRI once acute bleed resolves hematemesis -due to ingestion of large amount of blood HTN -lisinopril 10mg po daily HLD -Lipitor 80mg po 1 tablet HS Chronic Neuropathic pain -residual from stroke on L side of body -fentanyl patch 12mg q72hr -morphine IV pain -cant tolerate PO percocet Bipolar disorder -zoloft 50mg po daily if tolerated po nicotine dependence -smoking cessation counseling provided -pt declined NRT FEN NS@75 stable lytes NPO SCD Dispo: med aleida Problem List - Problems (1) Throat hemorrhage Code(s): R04.1 - HEMORRHAGE FROM THROAT (2) Tongue mass Code(s): R22.0 - LOCALIZED SWELLING, MASS AND LUMP, HEAD (4) Weakness on left side of face Code(s): R29.810 - FACIAL WEAKNESS (5) Depression Code(s): F32.9 - MAJOR DEPRESSIVE DISORDER, SINGLE EPISODE, UNSPECIFIED (6) Hypertension Code(s): I10 - ESSENTIAL (PRIMARY) HYPERTENSION (7) HLD (hyperlipidemia) Code(s): E78.5 - HYPERLIPIDEMIA, UNSPECIFIED (8) Smoker Code(s): F17.200 - NICOTINE DEPENDENCE, UNSPECIFIED, UNCOMPLICATED (9) Smoker unmotivated to quit Code(s): F17.200 - NICOTINE DEPENDENCE, UNSPECIFIED, UNCOMPLICATED (10) Smoker within last 12 months Code(s): Z87.891 - PERSONAL HISTORY OF NICOTINE DEPENDENCE Visit type - Emergency Visit Emergency Visit: Yes ED Registration Date: 07/26/16 Care time: The patient presented to the Emergency Department on the above date and was hospitalized for further evaluation of their emergent condition. - New Patient This patient is new to me today: Yes Date on this admission: 07/26/16 - Critical Care Critical Care patient: No - Discharge Referral Referred to [facility] Med P.C.: No
--- NOTE | 2016-07-26 13:58 | EKG ---
Test Reason : Blood Pressure : / mmHG Vent. Rate : 063 BPM Atrial Rate : 063 BPM P-R Int : 170 ms QRS Dur : 088 ms QT Int : 412 ms P-R-T Axes : 069 060 064 degrees QTc Int : 421 ms POOR DATA QUALITY, INTERPRETATION MAY BE ADVERSELY AFFECTED NORMAL SINUS RHYTHM NORMAL ECG WHEN COMPARED WITH ECG OF 03-MAR-2014 22:03, NO SIGNIFICANT CHANGE WAS FOUND Confirmed by DONI SUN MD ([id number]) on 07/26/2016 1:57:49 PM Referred By: Confirmed By:DONI SUN MD
[2016-07-26] MEDS ORDERED: DEXAMETHASONE SOD PHOSPHATE 4 MG/1 ML VIAL ONE (14:47)
[2016-07-26] MEDS ORDERED: NEOSTIGMINE METHYLSULFATE 0.5 MG/ML - 10 ML MDV ONE (14:55)
[2016-07-26] MEDS ORDERED: GLYCOPYRROLATE 0.2 MG/1 ML VIAL ONE (14:55)
--- NOTE | 2016-07-26 15:13 | OP ---
Operative Note - Note: Operative Date: 07/26/16 ([id number]) Pre-Operative Diagnosis: oropharyngeal hemorrhage, lesion of angelo and hypopharynx Operation: direct laryngoscopy, control of oropharyngeal hemorrhage, biopsy of left hypopharyngeal lesion, exicision of left oropharyngeal lesion, examination of base of tongue under anesthesia, orogastric intubation with evacuation of stomach contents. Findings: base of tongue normal to palpation bilaterally normal vallecula, epiglottis and endolarynx left hypopharyngeal cavitary lesion (~2cm) with slightly exophytic lining, biopsy obtained left oropharyngeal lesion, 1.5 cm polypoid bleeding primarily from the cavitary lesion stomach had abundant bloody fluid >100 cc evacuated . Post-Operative Diagnosis: Same as Pre-op Surgeon: Henry Rivera Anesthesiologist/CREW MEMBER: Lilia Santo MD Anesthesia: General Specimens Removed: 1. left hypopahryngeal lesion, ulcerated. 2. left oropharyngeal lesion, polypoid Estimated Blood Loss (mls): 5 Blood Volume Replaced (mls): 0 Operative Report Dictated: Yes
[2016-07-26] MEDS ORDERED: LACTATED RINGERS SOLUTION 1,000 ML IV SCH (15:30)
[2016-07-26] MEDS: morphine CARPU-JECT 2 MG/1 ML DISP.SYRIN IVPUSH PRN (17:55)
--- NOTE | 2016-07-26 17:59 | PN ---
Teaching Attending Note Name of Resident: Cindi Gómez ATTENDING PHYSICIAN STATEMENT I saw and evaluated the patient. I reviewed the resident's note and discussed the case with the resident. I agree with the resident's findings and plan as documented. SUBJECTIVE:seen at 11 am . no fever , or chills , cont to have bleeding at that time nausea and vomiting OBJECTIVE: mild distress , nauseated. vomited after oropharynx exam CV : RRR Lungs : CTAB ext : no edema HEENT: dry blood on nostrils and mouth. fresh blood in bucket . fresh blood in mouth , a small lump in L oral cavity between the base of the tongue and the back molars . exam induced gag and vomit ASSESSMENT AND PLAN: 70 y/o man with h/o smoking, HTn, CVA s/p L paresthesis and L sided pain syndrome who presented with oral bleed , was found to have a bleeding oral mass 1- Bleeding from an oral mass. likely cancer from long h/o smoking. bed side eval by ENt was done with chemical cauterization , with no success OR eval with excision of oral lesion was done . bleeding stopped gave 1 unit of plt this afternoon repeat H&H this evening . pain control , small dose of morphine , since swallowing might be affected. cont fentanyl patch 2- h/o HTN, HLP cont home meds . HLOC
--- NOTE | 2016-07-26 20:31 | PN ---
Progress Note (short form) - Note Progress Note: ENT postop check s/p direct laryngoscopy, control of oral hemorrhage, biopsy of hypopharyngeal lesion, excision of oropharyngeal lesion, examination under anesthesia base of tongue no further bleeding c/o throat pain no further nausea little po intake so far PE NAD oropharynx - no bleeding, no trismus, airway patent, voice clear and strong, no stridor or respiratory distress Data: pathology pending Hct 33.9 Impression: oropharyngeal bleeding: resolved after surgical intervention Plavix and ASA use increased risk pt is s/p platelet transfusion left hypopharyngeal lesion, suspect malignancy (significant smoking hx), biopsy pending Recommend: continue postop care IV fluids until taking po well monitor Hemoglobin and hematocrit. PT is normal x 2, probably not necessary to repeat If biopsy is positive for cancer then patient will need definitive surgical treatment. would transfer to [facility] or [place], pt is candidate for robotic surgery. Henry Rivera MD FACS Problem List - Problems (1) Throat hemorrhage Code(s): R04.1 - HEMORRHAGE FROM THROAT (2) Tongue mass Code(s): R22.0 - LOCALIZED SWELLING, MASS AND LUMP, HEAD
[2016-07-26] MEDS: ATORVASTATIN CA 80 MG TABLET (FP) PO SCH (21:41)
[2016-07-26 21:54] LABS: MCH 29.7 pg (25.7-33.7); MCHC 33.7 g/dl (32.0-35.9); MEAN CELL VOLUME 88.1 fl (80-96); MEAN PLT VOLUME 8.2 fl (7.5-11.1); PLATELET COUNT 222 K/MM3 (134-434); RDW 15.7 % (11.9-15.9); WHITE BLOOD COUNT 5.3 K/mm3 (4.0-10.0)
[2016-07-27] MEDS: oxyCODONE HCL 5 MG TABLET PO SCH ×5 (00:10→18:04)
[2016-07-27] MEDS: SODIUM CHLORIDE 1,000 ML IV SCH ×2 (03:15→16:24)
[2016-07-27] MEDS: morphine CARPU-JECT 2 MG/1 ML DISP.SYRIN IVPUSH PRN ×4 (05:13→18:05)
[2016-07-27] MEDS: GABAPENTIN 300 MG CAPSULE (FP) PO SCH ×3 (06:05→17:52)
[2016-07-27 07:30] LABS: MCH 30.4 pg (25.7-33.7); MCHC 34.8 g/dl (32.0-35.9); MEAN CELL VOLUME 87.4 fl (80-96); MEAN PLT VOLUME 7.9 fl (7.5-11.1); PLATELET COUNT 177 K/MM3 (134-434); RDW 15.4 % (11.9-15.9); WHITE BLOOD COUNT 7.3 K/mm3 (4.0-10.0)
[2016-07-27 07:54] LABS: INR 1.12 (0.82-1.09); PROTHROMBIN TIME (PATIENT) 12.3 SEC (9.98-11.88)
[2016-07-27 07:55] LABS: ACTIVATED PTT 28.5 SECONDS (26.9-34.4)
[2016-07-27 08:06] LABS: COCKROFT - GAULT 177.77; CREATININE 0.5 mg/dL (0.7-1.3); MAGNESIUM 2.1 mg/dL (1.8-2.4); PHOSPHOROUS 2.7 mg/dL (2.5-4.9)
--- NOTE | 2016-07-27 08:54 | PN ---
Progress Note (short form) - Note Progress Note: Anesthesiology Post-op POD#1 s/p laryngoscopy with tongue biopsy under GA. Pt. awake,admits to some pain, denies nausea. Currently has fentanyl patch as well as PRN IV morphine ordered for pain. Otherwise, Hgb improved and VSS. No apparent anesthesia- related issues.
[2016-07-27] MEDS: TAMSULOSIN HCL 0.4 MG CAP.ER.24H (FP) PO SCH ×3 (09:34→11:37)
[2016-07-27] MEDS: LISINOPRIL 10 MG TABLET (FP) PO SCH ×3 (09:35→11:38)
[2016-07-27] MEDS: SERTRALINE HCL 50 MG TABLET (FP) PO SCH ×3 (09:35→11:38)
--- NOTE | 2016-07-27 13:38 | PN ---
Teaching Attending Note Name of Resident: Cindi Gómez ATTENDING PHYSICIAN STATEMENT I saw and evaluated the patient. I reviewed the resident's note and discussed the case with the resident. I agree with the resident's findings and plan as documented. SUBJECTIVE: No fever or chills, has some pain at site of procedure . has pain with swallowing liquids . has no SOB or cough . OBJECTIVE: NAD CV : RRR Lungs : CTAB Ext: no edema HEENT: no blood in oral cavity. slightly dry MM ASSESSMENT AND PLAN: 70 y/o man with h/o smoking, HTn, CVA s/p L paresthesis and L sided pain syndrome who presented with oral bleed , was found to have a bleeding oral mass 1- Bleeding from an oral mass. likely cancer from long h/o smoking. s/p Bx and excision in OR. HB dropped but bleeding has stopped. monitor HB . cont to hold ASA and plavix Bx results pending , if cancer will need surgery cont clears cont pain control cont low dose IVF 2- h/o HTN, HLP cont home meds . HLOC
--- NOTE | 2016-07-27 14:25 | PN ---
Physical Exam: SUBJECTIVE: Patient seen and examined Patient resting in bed, in mod-severe distress. afebrile and hemodynamically stable. Has been continuously bleeding from mouth and vomiting blood, reports diffuse pain and sever nausea. Rapid response was called this morning because patient became flushed and dizzy while defacating, near syncopal. vital were stable and it was decided to be vasovagl. ENT evaluated this am. Denies f/c, chest pain, palpitations, sob, cough, dysuria. OBJECTIVE: Vital Signs Period Temp Pulse Resp BP Sys/Najera Pulse Ox Last 24 Hr 97.4 F-99.8 F 78-112 16-20 114-158/62-89 93-100 GENERAL: The patient is awake, alert, and fully oriented, in no acute distress. HEAD: Normal with no signs of trauma. EYES: PERRL, extraocular movements intact, sclera anicteric, conjunctiva clear. No ptosis. ENT: Ears normal, nares patent, blood in nares, oropharynx bloody, L tonsillar small polyp like lesion or clot, moist mucous membranes. NECK: Trachea midline, full range of motion, supple no cervical or supraclavicular adenopathy LUNGS: Breath sounds equal, clear to auscultation bilaterally, no wheezes, no crackles, no accessory muscle use. HEART: Regular rate and rhythm, S1, S2 without murmur, rub or gallop. ABDOMEN: Soft, nontender, nondistended, normoactive bowel sounds, no guarding, no rebound, no hepatosplenomegaly, no masses. EXTREMITIES: 2+ pulses, warm, well-perfused, no edema. NEUROLOGICAL: Cranial nerves II through XII intact. Normal speech, strength 5/5 b/l, brachial reflexes 2+ b/l, patellar 1+ b/l PSYCH: Normal mood, normal affect. SKIN: Warm, dry Laboratory Results - last 24 hr 07/26/16 07/27/16 07/27/16 21:30 06:40 06:40 WBC 5.3 7.3 D RBC 3.10 L 2.79 L Hgb 9.2 L D 8.5 L Hct 27.3 L D 24.4 L MCV 88.1 87.4 MCHC 33.7 34.8 RDW 15.7 15.4 Plt Count 222 177 D MPV 8.2 7.9 INR PTT (Actin FS) Sodium 143 Potassium 3.9 Chloride 109 H Carbon Dioxide 28 Anion Gap 6 L BUN 19 H D Creatinine 0.5 L D Random Glucose 112 H Calcium 8.0 L Phosphorus 2.7 Magnesium 2.1 07/27/16 06:40 WBC RBC Hgb Hct MCV MCHC RDW Plt Count MPV INR 1.12 PTT (Actin FS) 28.5 Sodium Potassium Chloride Carbon Dioxide Anion Gap BUN Creatinine Random Glucose Calcium Phosphorus Magnesium Active Medications Generic Name Dose Route Start Last Admin Trade Name Freq PRN Reason Stop Dose Admin Acetaminophen 325 mg 07/26/16 06:15 07/26/16 06:11 Tylenol - PO 325 mg Q6HPO CAYLA Administration Atorvastatin Calcium 80 mg 07/26/16 22:00 07/26/16 21:41 Lipitor - PO Not Given HS CAYLA Fentanyl 1 patch 07/27/16 17:00 Duragesic 12mcg Patch - TD 08/02/16 16:59 Q72H CAYLA Fentanyl 50 mcg 07/26/16 15:24 Sublimaze Injection - IVPUSH 07/29/16 15:25 [id number] PRN PAIN Gabapentin 900 mg 07/26/16 06:30 07/27/16 11:41 Neurontin - PO 900 mg Q6HPO CAYLA Administration Sodium Chloride 1,000 mls @ 75 mls/hr 07/26/16 05:00 07/27/16 03:15 Normal Saline - IV 75 mls/hr ASDIR CAYLA Administration Lisinopril 10 mg 07/26/16 10:00 07/27/16 11:38 Prinivil PO 10 mg DAILY CAYLA Administration Miscellaneous 1 each 07/26/16 04:02 Duragesic Patch Waste TD PRN PRN PAIN Morphine Sulfate 1 mg 07/26/16 17:44 07/27/16 14:12 Morphine Injection - IVPUSH 1 mg Q4H PRN Administration PAIN Ondansetron HCl 4 mg 07/26/16 03:54 07/26/16 11:35 Zofran Injection IVPUSH 4 mg Q6H PRN Administration NAUSEA AND/OR VOMITING Oxycodone HCl 5 mg 07/26/16 17:38 07/27/16 06:04 Roxicodone - PO Not Given Q6HPO CAYLA Sertraline HCl 50 mg 07/26/16 10:00 07/27/16 11:38 Zoloft - PO 50 mg DAILY CAYLA Administration Tamsulosin HCl 0.4 mg 07/27/16 08:30 07/27/16 11:37 Flomax - PO 0.4 mg DAILY@[address] soft tissue of neck: mass like area of enhancement seen at the base of the tongue on the left (images 56 through 63) seen medial to the mylohyoid. 1.5-1.9 cm, a central ovoid hypoventilation focus measures approx 3-4mm in diameter and could represent a calculus or possibly an aneurysm. no cervial adenopathy. no collection or hematoma is seen in the soft tissues of the neck. 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 and unsteady gait, TIA 2014, on full does ASA /plavix, who presents with oropharyngeal hemorrhage found to have L mylohyoid mass Left hypohyarngeal mass with acute hemorrhage -POD1 direct laryngoscopy, biopsy and excision by Dr Rivera ENT; hemostasis achieved -highly suspicious for malignancy in a smoker -Dr Kearney consult, if biopsy malignant, patient to xfer to [facility] or [place] for robotic surgery -zofran IV nausea -hold plavix and ASA 325mg -1 U platelets yesterday -clears diet; poor tolerance due to throat pain Anemia -due to acute blood loss -Hgb 8.5, will monitor HTN -lisinopril 10mg po daily HLD -Lipitor 80mg po 1 tablet HS Chronic Neuropathic pain -residual from stroke on L side of body -fentanyl patch 12mg q72hr -PO percocet and gabapentin crushed in apple sauce -morphine IV only if cant tolerate PO Bipolar disorder -zoloft 50mg po daily nicotine dependence -smoking cessation counseling provided -pt declined NRT FEN NS@75 stable lytes clears SCD Dispo: med aleida, observe for another 24 hr then d/c Problem List - Problems (1) Throat hemorrhage Code(s): R04.1 - HEMORRHAGE FROM THROAT (2) Tongue mass Code(s): R22.0 - LOCALIZED SWELLING, MASS AND LUMP, HEAD (4) Weakness on left side of face Code(s): R29.810 - FACIAL WEAKNESS (5) Depression Code(s): F32.9 - MAJOR DEPRESSIVE DISORDER, SINGLE EPISODE, UNSPECIFIED (6) Hypertension Code(s): I10 - ESSENTIAL (PRIMARY) HYPERTENSION (7) HLD (hyperlipidemia) Code(s): E78.5 - HYPERLIPIDEMIA, UNSPECIFIED (8) Smoker Code(s): F17.200 - NICOTINE DEPENDENCE, UNSPECIFIED, UNCOMPLICATED (9) Smoker unmotivated to quit Code(s): F17.200 - NICOTINE DEPENDENCE, UNSPECIFIED, UNCOMPLICATED (10) Smoker within last 12 months Code(s): Z87.891 - PERSONAL HISTORY OF NICOTINE DEPENDENCE Visit type - Emergency Visit Emergency Visit: Yes ED Registration Date: 07/26/16 Care time: The patient presented to the Emergency Department on the above date and was hospitalized for further evaluation of their emergent condition. - New Patient This patient is new to me today: No - Critical Care Critical Care patient: No - Discharge Referral Referred to [facility] Med P.C.: No
--- NOTE | 2016-07-27 16:40 | OP ---
DATE OF OPERATION: 07/26/2016 PREOPERATIVE DIAGNOSIS: Oropharyngeal hemorrhage, suspected lesion of oral or hypopharynx. 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 PROCEDURE: Direct laryngoscopy, examination of base of tongue under anesthesia , biopsy of left hypopharyngeal ulcerative neoplasm, excision of left oropharyngeal polypoid lesion, control of oropharyngeal hemorrhage, orogastric tube insertion with evacuation of over 100 mL of ingested blood. SURGEON: Gaudencio Rivera M.D. ANESTHESIOLOGIST: Dr. Carolyn Santo ANESTHESIA: General via endotracheal tube. INDICATION: This 70-year-old gentleman presented to the emergency department with sudden spontaneous bleeding to the oropharynx. This subsided but then came back significantly the morning of surgery bedside hemostasis and cauterization provided temporary control, however there was recurrence of the bleeding. Hematocrit was slowly reduced from admission, and the patient had significant nausea, is now brought to surgery for treatment. CT scan of the neck indicated an enhancing 2-cm lesion of the left base of tongue or oropharynx. FINDINGS: Left oropharyngeal hemorrhage, base of the tongue, unremarkable. Endolarynx unremarkable. Left oropharynx and hypopharynx shows an ulcerative lesion with slight cavitation and a partially exophytic lining. Just posterior to this superiorly was a distinct left oropharyngeal polypoid lesion with smooth overlying mucosa. PROCEDURE: Patient is brought to the operating room and placed on the operating room in supine position. General endotracheal anesthesia was induced to satisfactory level. He was prepped and draped in the usual fashion for surgery. The pit furnace operator alveolus was protected with moistened gauze sponge and the laryngoscope was placed. The tongue was covered with blood, but there was no distinct lesion. The vallecula was normal. The epiglottis was normal. The endolarynx was visualized, and the aryepiglottic folds, false and true vocal cords appeared unremarkable. The endotracheal tube was seen in proper position. The right oropharynx was normal. The left oropharynx had blood as well as a 2-cm area of ulceration and cavitation. There was bleeding from the edges and depth of this. Just posterior to this cavity towards its posterosuperior edge was a fairly pedunculated polypoid lesion covered by smooth mucosa. In order to better expose this area, the laryngoscope was removed, and the McIvor mouthgag with the Ring blade was inserted. The suction cautery was used to cauterize the edges and areas of active bleeding. An exophytic portion was seen along the supermedial aspect of this cavity, and multiple biopsies were obtained with cup forceps and sent to pathology for routine studies. On palpation, the base of tongue was normal bilaterally; however, this firm area in the lateral hypopharynx corresponded to the area of lesion. The distinct left oropharyngeal lesion which was polypoid in nature was then grasped and retracted and then excised with cautery and sent to pathology as a separate specimen. This was 1.5 cm in greatest dimension. After assuring hemostasis, the cavity was then packed with Surgicel and normal mucosa was oversewn, corresponding roughly to the anterior posterior tonsillar pillars, utilizing chromic suture in an interrupted fashion. There was no further bleeding. Finally, an oropharyngeal tube was passed into the stomach significant bloody fluid was then suctioned at least 100 mL. After no further return from the stomach was achieved, the tube was removed. Final inspection demonstrated no bleeding, intact sutures over the oversewn area. The mouthgag was removed. Patient tolerated procedure well. He was then awakened from general anesthesia, transferred to PACU in stable condition. Estimated blood loss for the procedure was less than 5 mL. He received crystalloid during the procedure, at least 100 mL of bloody fluid was evacuated from the stomach via the orogastric tube. Two specimens were sent to pathology, one was from the cavitary ulcer in the left oropharynx and hypopharynx. The second specimen was the polypoid lesion of the left oropharynx. GAUDENCIO RIVERA M.D. [id number] MTDD
[2016-07-27] MEDS ORDERED: fentaNYL 12mcg/hr PATCH.TD72 TD SCH (17:00)
--- NOTE | 2016-07-27 17:16 | PN ---
Progress Note (short form) - Note Progress Note: Patient seen and examined. Chart reviewed, CT scan reviewed. 70 y/o man history of stroke and TIA on Aspirin and Plavix recently admitted with bleeding per mouth. Taken to OR by Dr. Rivera and pedunculated lesion removed. Left base of tongue lesion seen on scan and biopsy taken in OR--pending. Stable since then, tolerating jello PO. PMH: bipolar disorder, pain syndrome meds: neurontin, oxycodone, plavix, aspirin SH: 1 ppd smoker since age 16 On examination generally well-appearing in no distress, 2 cm left base of tongue tumor, firm but mobile. No adenopathy palpated. Fiberoptic scope done showing fullness of left base of tongue, otherwise negative. 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 Reasonable to discharge and RTO Sunday for discussion of options: surgery versus radiation or some combination of both. Asked team to discuss aspirin/plavix with neurologist/primary. call with questions [phone]. Thank you. Edy Kearney MD
--- NOTE | 2016-07-27 17:56 | PN ---
Progress Note (short form) - Note Progress Note: ENT no further bleeding c/o throat pain, but tolerating clear liquids PE NAD no trismus left oropharynx - healing, no bleeding tongue protrudes well and midline Data: pathology pending Impression: oropharyngeal bleeding resolved left hypopharyngeal lesion, suspicious for carcinoma, biopsy pending base of tongue was unremarkable on palpation under anesthesia and on direct laryngoscopy. Recommend: await final pathology diet as tolerated will discuss with Dr. Radha Rivera MD Problem List - Problems (1) Throat hemorrhage Code(s): R04.1 - HEMORRHAGE FROM THROAT (2) Tongue mass Code(s): R22.0 - LOCALIZED SWELLING, MASS AND LUMP, HEAD
[2016-07-27] MEDS: ATORVASTATIN CA 80 MG TABLET (FP) PO SCH (21:02)
[2016-07-28] MEDS: GABAPENTIN 300 MG CAPSULE (FP) PO SCH ×4 (00:12→17:36)
[2016-07-28] MEDS: oxyCODONE HCL 5 MG TABLET PO SCH ×4 (00:13→17:38)
[2016-07-28] MEDS: ACETAMINOPHEN 325 MG TABLET (FP) PO SCH ×4 (00:14→17:36)
[2016-07-28] MEDS: SODIUM CHLORIDE 1,000 ML IV SCH ×2 (05:00→06:14)
[2016-07-28 09:00] LABS: MCH 29.9 pg (25.7-33.7); MCHC 33.7 g/dl (32.0-35.9); MEAN CELL VOLUME 88.7 fl (80-96); PLATELET COUNT 110 K/MM3 (134-434); RDW 15.8 % (11.9-15.9); WHITE BLOOD COUNT 3.6 K/mm3 (4.0-10.0)
[2016-07-28] MEDS: TAMSULOSIN HCL 0.4 MG CAP.ER.24H (FP) PO SCH (10:01)
[2016-07-28] MEDS: LISINOPRIL 10 MG TABLET (FP) PO SCH (10:01)
[2016-07-28] MEDS: SERTRALINE HCL 50 MG TABLET (FP) PO SCH (10:01)
--- NOTE | 2016-07-28 12:59 | PATH ---
Surgical Pathology Report Patient Name: GAUDENCIO BARKLEY Med. Rec. #: [id number] /Age/Gender: 1945 (Age: 70) / M Account: [id number] Location: [address] [place] [address] Taken: 07/27/2016 Received: 07/27/2016 Reported: 07/28/2016 Physicians: Jyoti Philip M.D. Specimen(s) Received A: BX LEFT HYPOPHARYNX B: LEFT ORAL PHARYNGEAL POLYP Clinical History Throat hemorrhage, oral pharyngeal lesion Final Diagnosis A. LEFT HYPOPHARYNX, BIOPSY: POORLY DIFFERENTIATED SQUAMOUS CELL CARCINOMA. B. LEFT ORAL PHARYNGEAL POLYP, POLYPECTOMY: BENIGN CYST CONSISTENT WITH TONSILLAR CYST. Comment: This case was discussed with Dr. Rivera on July 28, 2016. Immunostain for p16 on Specimen A is pending, and a report will follow. Electronically Signed Fabien John M.D. Addendum Reported: 07/31/2016 Addendum Diagnosis Immunohistochemical stains performed at [place], [place] ([id number]) and interpreted at [facility] show the following results: The squamous carcinoma is positive for p16. Fabien John M.D. Addendum Reported: 08/04/2016 Addendum Diagnosis Part A: HPV subtyping by MICHAEL performed and interpreted at [place], [place] ([id number]) shows the following: Results: HPV WSS (HPV subtypes 6,11,16,18,31,33,and 51): Positive HPV Low Risk (HPV subtypes 16/11): Negative HPV High Risk (HPV subtypes 16/18): Positve Doni Dickinson M.D. Gross Description A. Received in formalin labeled "left hypopharynx," is a 0.6 x 0.5 x 0.2 cm aggregate of hanley soft tissue fragments. The formalin is filtered and the specimen is entirely submitted in one cassette. B. Received in formalin labeled "left oral pharyngeal polyp," is a 1.0 x 0.9 x 0.2 cm hanley, polypoid portion of soft tissue. The specimen is submitted in toto in one cassette. 07/27/2016 saudi07/27/2016
--- NOTE | 2016-07-28 14:27 | PN ---
Physical Exam: SUBJECTIVE: Patient seen and examined at bed side this morning. Patient said " I feel like a different person and I feel much better ". Minimal discomfort and pain on the left side of the floor of the mouth. Denies bleeding from the mouth , chest pain, sob, cough, palpitation, abdominal pain, nausea or vomiting. Bowel /Bladder habit normal. Hasn't been able to swallow food but he said he will try soft diet today. No acute events overnight as per the RN. OBJECTIVE: Vital Signs Period Temp Pulse Resp BP Sys/Najera Pulse Ox Last 24 Hr 99.2 F-99.5 F 82-94 20-20 127-138/64-72 GENERAL: The patient is awake, alert, and fully oriented, in no acute distress. HEAD: Normal with no signs of trauma. EYES:EOM intact, no pallor or icterus. ENT: Ears normal, moist mucous membranes, tongue midline, movement of the tongue normal; no bleeding or swelling under the tongue, minimal tenderness on palpation. NECK: Trachea midline, full range of motion, supple. LUNGS: Breath sounds equal, clear to auscultation bilaterally, no wheezes, no crackles, no accessory muscle use. HEART: Regular rate and rhythm, S1, S2 without murmur. ABDOMEN: Soft, nontender, nondistended, normoactive bowel sounds, no guarding, no rebound, no hepatosplenomegaly, no masses. EXTREMITIES: 2+ pulses, warm, well-perfused, no edema. NEUROLOGICAL: Cranial nerves II through XII grossly intact. Normal speech, gait not observed. PSYCH: Normal mood, normal affect. SKIN: Warm, dry, normal turgor, no rashes or lesions noted Laboratory Results - last 24 hr 07/26/16 07/28/16 04:57 07:34 WBC 3.6 L D RBC 2.27 L Hgb 6.8 L* D Hct 20.1 L D MCV 88.7 MCHC 33.7 RDW 15.8 Plt Count 110 L D MPV 8.0 Blood Type A POSITIVE Crossmatch See Detail Active Medications Generic Name Dose Route Start Last Admin Trade Name Freq PRN Reason Stop Dose Admin Acetaminophen 325 mg 07/26/16 06:15 07/28/16 12:41 Tylenol - PO 325 mg Q6HPO CAYLA Administration Atorvastatin Calcium 80 mg 07/26/16 22:00 07/27/16 21:02 Lipitor - PO 80 mg HS CAYLA Administration Fentanyl 1 patch 07/27/16 17:00 07/27/16 17:52 Duragesic 12mcg Patch - TD 08/02/16 16:59 1 patch Q72H CAYLA Administration Fentanyl 50 mcg 07/26/16 15:24 Sublimaze Injection - IVPUSH 07/29/16 15:25 [id number] PRN PAIN Gabapentin 900 mg 07/26/16 06:30 07/28/16 12:41 Neurontin - PO 900 mg Q6HPO CAYLA Administration Sodium Chloride 1,000 mls @ 75 mls/hr 07/26/16 05:00 07/28/16 06:14 Normal Saline - IV 75 mls/hr ASDIR CAYLA Administration Lisinopril 10 mg 07/26/16 10:00 07/28/16 10:01 Prinivil PO 10 mg DAILY CAYLA Administration Miscellaneous 1 each 07/26/16 04:02 Duragesic Patch Waste TD PRN PRN PAIN Morphine Sulfate 1 mg 07/26/16 17:44 07/27/16 18:05 Morphine Injection - IVPUSH 1 mg Q4H PRN Administration PAIN Ondansetron HCl 4 mg 07/26/16 03:54 07/26/16 11:35 Zofran Injection IVPUSH 4 mg Q6H PRN Administration NAUSEA AND/OR VOMITING Oxycodone HCl 5 mg 07/26/16 17:38 07/28/16 12:42 Roxicodone - PO 5 mg Q6HPO CAYLA Administration Sertraline HCl 50 mg 07/26/16 10:00 07/28/16 10:01 Zoloft - PO 50 mg DAILY CAYLA Administration Tamsulosin HCl 0.4 mg 07/27/16 08:30 07/28/16 10:01 Flomax - PO 0.4 mg DAILY@[address] soft tissue of neck: mass like area of enhancement seen at the base of the tongue on the left (images 56 through 63) seen medial to the mylohyoid. 1.5-1.9 cm, a central ovoid hypoventilation focus measures approx 3-4mm in diameter and could represent a calculus or possibly an aneurysm. no cervial adenopathy. no collection or hematoma is seen in the soft tissues of the neck. 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 -Dr Kearney consult, if biopsy malignant, patient to transfer to [facility] for robotic surgery -zofran IV nausea -hold plavix and ASA 325mg -1 U platelets received this admission -soft diet; poor tolerance due to throat pain -Smoking cessation counseling # Anemia likely due to acute blood loss -H/H dropped from 8.5----> 6.8, - Received 1 Unit of pRBC and will receive 2nd units -Repeat H/H tomorrow, if there is any active bleeding then order CBC stat and more transfusion. # Hypertension- stable -Continue Lisinopril 10mg po daily # Hyperlipidemia -Continue Lipitor 80mg po 1 tablet HS # Chronic Neuropathic pain -Residual from stroke on L side of body -Fentanyl patch 12mg q72hr -PO percocet and gabapentin crushed in apple sauce -Morphine IV only if cant tolerate PO # Bipolar disorder - Continue zoloft 50mg po daily # Nicotine dependence -smoking cessation counseling provided -Patient declined NRT # FEN IV NS@75 Electrolytes stable Soft diet # Prophylaxis For DVT: On SCD For GI: Not indicated # Dispo: Admitted in Med-Surg. Cannot be discharged due to anemia requiring transfusion. Illness, Investigation and Plan of care explained to the patient. He verbalized understanding. Case seen and discussed with Dr. Florentino. Visit type - Emergency Visit Emergency Visit: Yes ED Registration Date: 07/26/16 Care time: The patient presented to the Emergency Department on the above date and was hospitalized for further evaluation of their emergent condition. - New Patient This patient is new to me today: Yes Date on this admission: 07/28/16 - Critical Care Critical Care patient: No
--- NOTE | 2016-07-28 16:27 | PN ---
Teaching Attending Note Name of Resident: Tess Ross ATTENDING PHYSICIAN STATEMENT I saw and evaluated the patient. I reviewed the resident's note and discussed the case with the resident. I agree with the resident's findings and plan as documented. SUBJECTIVE: no fever or chills, feels much better . no more bleeding from mouth OBJECTIVE: NAD CV : RRR Lungs : CTAB Ext: no edema HEENT: no blood in oral cavity.MMM. L tongue base with a small hard mass felt ASSESSMENT AND PLAN: 70 y/o man with h/o smoking, HTn, CVA s/p L paresthesis and L sided pain syndrome who presented with oral bleed , was found to have a bleeding oral mass 1- SCC of tongue base : s/p excision and cauterization - no more bleeding - Hb dropped , transfuse 2 units of RBC - cont to hold ASA and plavix - consult ONC - f/u with oral sx as out pt for further sx - change diet to Soft - dc IVF if tolerates food 2- h/o HTN, HLP cont home meds . HLOC possible dc tomorrow
--- NOTE | 2016-07-28 19:11 | PN ---
Progress Note (short form) - Note Progress Note: ENT throat pain improved ate soft diet Hgb Hct low, 2nd unit of PRBC infusing no further bleeding VSS NAD no bleeding voice clear and strong, no stridor or respiratory distress Data: Pathology ++poorly differentiated squamous cell carcinoma left hypopharynx left oropharynx: benign cyst Hgb 6.8 Hct 20.1 Impression: oropharyngeal bleeding, resolved after surgical intervention for control left hypopharyngeal squamous cell carcinoma no adenopathy on CT Recommend: complete transfusion OK for discharge home when meets criteria outpatient follow-up with Dr. Kearney at [facility] for head and neck surgery discussed with Dr. Caio Rivera MD FACS Problem List - Problems (1) Throat hemorrhage Code(s): R04.1 - HEMORRHAGE FROM THROAT (2) Tongue mass Code(s): R22.0 - LOCALIZED SWELLING, MASS AND LUMP, HEAD
[2016-07-28] MEDS: ATORVASTATIN CA 80 MG TABLET (FP) PO SCH (21:08)
[2016-07-29] MEDS: GABAPENTIN 300 MG CAPSULE (FP) PO SCH ×3 (00:12→12:46)
[2016-07-29] MEDS: oxyCODONE HCL 5 MG TABLET PO SCH ×3 (00:13→12:48)
[2016-07-29] MEDS: ACETAMINOPHEN 325 MG TABLET (FP) PO SCH ×2 (00:13→06:04)
[2016-07-29] MEDS ORDERED: oxyCODONE HCL 5 MG TABLET PO ONE ×2 (06:18→08:30)
[2016-07-29] MEDS: morphine CARPU-JECT 2 MG/1 ML DISP.SYRIN IVPUSH PRN (06:53)
[2016-07-29 08:31] LABS: MCH 29.2 pg (25.7-33.7); MCHC 34.1 g/dl (32.0-35.9); MEAN CELL VOLUME 85.8 fl (80-96); MEAN PLT VOLUME 8.1 fl (7.5-11.1); PLATELET COUNT 120 K/MM3 (134-434); RDW 16.9 % (11.9-15.9); WHITE BLOOD COUNT 4.1 K/mm3 (4.0-10.0)
[2016-07-29 09:05] LABS: ALBUMIN 3.1 g/dl (3.4-5.0); ALK PHOS 56 U/L (45-117); ANION GAP 7 (8-16); BILIRUBIN,TOTAL 0.8 mg/dL (0.2-1.0); CALCIUM 7.9 mg/dL (8.5-10.1); CO2 28 mmol/L (21-32); COCKROFT - GAULT 177.77; CREATININE 0.5 mg/dL (0.7-1.3); GLUCOSE,RANDOM 107 mg/dL (74-106); SGOT/AST 17 U/L (15-37); SGPT/ALT 15 U/L (12-78); TOT PROT 5.4 g/dl (6.4-8.2)
[2016-07-29] MEDS: SERTRALINE HCL 50 MG TABLET (FP) PO SCH (09:16)
[2016-07-29] MEDS: TAMSULOSIN HCL 0.4 MG CAP.ER.24H (FP) PO SCH (09:17)
[2016-07-29] MEDS: LISINOPRIL 10 MG TABLET (FP) PO SCH (09:17)
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
[2016-07-29] MEDS ORDERED: oxyCODONE HCL 5 MG TABLET PO PRN (13:00)
[2016-07-29 15:08] VITALS: BP 131/69; PULSE 74; TEMP 98.8
--- NOTE | 2016-07-29 15:52 | DS ---
Physical Examination Vital Signs: Vital Signs Temperature 98.8 F 07/29/16 15:07 Pulse Rate 74 07/29/16 15:07 Respiratory Rate 18 07/29/16 08:00 Blood Pressure 131/69 07/29/16 15:07 O2 Sat by Pulse Oximetry (%) 97 07/29/16 09:00 Findings/Remarks: has minimal painin his throat today, but has pain in his L sided body form his old stroke . tolerated his diet Constitutional: Yes: Well Nourished, No Distress, Calm Eyes: Yes: Conjunctiva Clear, EOM Intact HENT: Yes: Atraumatic, Normocephalic, Other (small hard mass felt in L tongue base , with bruising of L oropharyn. no blood products in mouth) Neck: Yes: Supple, Trachea Midline Cardiovascular: Yes: Regular Rate and Rhythm, S1, S2 Respiratory: Yes: Regular, CTA Bilaterally Extremities: No: Cold, Cool, Erythema Edema: No Labs: CBC, BMP 07/29/16 07:30 07/29/16 07:30 Discharge Summary Reason For Visit: NEUROPATHIC PAIN THROAT HEMORRHAGE TONGUE MASS Current Active Problems Throat hemorrhage (Acute) Tongue mass (Acute) HLD (hyperlipidemia) (Chronic) Neuropathic pain (Chronic) Smoker (Chronic) Hospital Course: D/C diagnoses : 1- L tongue base poorly differentiated SCC 2- acute blood loss anemia Hospital course : 70 y/o man with h/o smoking, HTN, CVA s/p L paresthesis and L sided pain syndrome who presented with oral bleed . In ER blood work was unremarkable but T scan of neck and face showed L tongue base mass which extended to L orohparynx . the patient was admitted to floor. He continued to bleed and vomits the swallowed blood. He was seen by Dr. WILLIAMSON, ENT who tried bed side chemical cauterization with no success. pt then was taken to OR with partial excision of mass and a BX , with resolution of his bleed . Bx results showed poorly differentiated SCC, likely due to his heavy smoking. He was seen by ONC and Oral surgery Dr. Kearney, and decision was made to follow as outpt for a bigger surgery at a tertiary center. Pt also to follow with ONC for further staging and decision on need for systemic treatment . He developed anemia from acute blood loss. Hb dropped to 6.8 and patient received 2 units of RBC with good response . Hb today 9.8 . he was given prescription fro CBC in 1 week to be faxed to his PCP. Of note , he took ASA and plavix for his strokes as out pt ( 2000, 2010) . Those were held due to acute bleed. He is advised to continue plavix only at mo due to increased risk of re-bleed with dual anti-platelet therapy. He was advised to follow with Dr. Casanova , from Neurology . He is to continue his pain meds at home dose at [place] . Dispo : HOME Condition : improved F/U : Neuro, ONC, oral surgery , and PCP. Time spent 40 min Condition: Improved - Instructions Diet, Activity, Other Instructions: - please follow with your primary care doctor in 1 week - you need blood work done in 1 week and fax to your PCP - please see Dr. Kearney as scheduled on Tuesday 08/01 . - you need to follow with the oncologist Dr. Mayberry ( for staging of you cancer and further need for other treatments of cancer ) - take only plavix . stop Aspirin . due to the increased risk of bleeding - you need to follow with a neurologist. Dr. Casanova referral was given - please : NO MORE SMOKING Referrals: Armando Nuñez [Primary Care Provider] - 1 Week Domingo Casanova DO [Staff Physician] - 2 Weeks Edy Kearney MD [Staff Physician] - 08/01/16 Frederic Mayberry MD [Staff Physician] - 1 Week Disposition: HOME - Home Medications Comprehensive Discharge Medication List: Ambulatory Orders Gabapentin [Neurontin] 900 mg PO QID 03/03/14 Clopidogrel Bisulfate [Plavix -] 75 mg PO DAILY 07/26/16 Lisinopril 10 mg PO DAILY 07/26/16 Sertraline HCl [Zoloft -] 50 mg PO DAILY 07/26/16 Tamsulosin HCl [Flomax] 0.4 mg PO DAILY 07/26/16 Fentanyl 12 mcg TD Q27H 07/29/16 Folic Acid 1 mg PO DAILY 07/29/16 Miscellaneous Medical Supply [Outpatient Order] 1 each ASDIR #1 misc Oxycodone HCl 10 mg PO TID PRN 07/29/16 Oxycodone HCl 20 mg PO AM PRN 07/29/16 Simvastatin 40 mg PO HS 07/29/16 This patient is new to me today: No Emergency Visit: Yes ED Registration Date: 07/26/16 Care time: The patient presented to the Emergency Department on the above date and was hospitalized for further evaluation of their emergent condition. Critical Care patient: No - Discharge Referral Referred to [facility] Med [facility].C[facility] No
== END 2016-07-29 17:13 | disposition home or self-care (01) | DRG 133 ==
LOC: JER 23:06 → JERBED 07-26 02:35 → OBSVTOIN 07-26 03:28 → J6S 07-26 04:14
PROVIDERS: ADMIT Internal Medicine; ATTEND Internal Medicine
PROC: 0CQ Mouth and Throat, Repair (ICD-10-PCS; 2016-07-26)
PROC: 0D968ZZ Drainage of Stomach, Via Natural or Artificial Opening Endoscopic (ICD-10-PCS; 2016-07-26)
PROC: 0BH18EZ Insertion of Endotracheal Airway into Trachea, Via Natural or Artificial Opening Endoscopic (ICD-10-PCS; 2016-07-26)
PROC: 30233R1 Transfusion of Nonautologous Platelets into Peripheral Vein, Percutaneous Approach (ICD-10-PCS; 2016-07-26)
PROC: 0CBM8ZX Excision of Pharynx, Via Natural or Artificial Opening Endoscopic, Diagnostic (ICD-10-PCS; principal; 2016-07-26 13:30)
PROC: 30233N1 Transfusion of Nonautologous Red Blood Cells into Peripheral Vein, Percutaneous Approach (ICD-10-PCS; 2016-07-28)
DX: C13.9 Malignant neoplasm of hypopharynx, unspecified (principal); D62 Acute posthemorrhagic anemia; I10 Essential (primary) hypertension; F17.210 Nicotine dependence, cigarettes, uncomplicated; E78.00 Pure hypercholesterolemia, unspecified; I69.398 Other sequelae of cerebral infarction; R26.81 Unsteadiness on feet; Z86.19 Personal history of other infectious and parasitic diseases; F31.9 Bipolar disorder, unspecified; M79.2 Neuralgia and neuritis, unspecified; Z87.11 Personal history of peptic ulcer disease; R04.1 Hemorrhage from throat; N40.0 Benign prostatic hyperplasia without lower urinary tract symptoms
CPT/HCPCS: 36415; 36430; 70491-TC; 71010-TC; 71020-TC; 80048; 80053; 83735; 84100; 85025; 85027; 85610; 85730; 86850; 86900; 86901; 86922; 88305-TC; 93005; 93010; 94760; 99283-25; G0378; P9034; P9038; P9058

== ENCOUNTER 2016-12-24 07:16 | Emergency (ER) | payer OTHER ==
--- NOTE | 2016-12-24 07:28 | PDOC ---
History of Present Illness - General Stated Complaint: SEVERE BURNING THROAT Time Seen by Provider: 12/24/16 07:28 - History of Present Illness Initial Comments: 71 year old male with PMH of HTN, chronic LE pain, and recent diagnosis of throat cancer (s/p radiation one month ago) presenting with throat burning. He describes the burning as a originally 10/10 on onset after a belch with some fluid that came up from his esophagus. Since then he has had tongue and throat burning that is now a 5/10 in severity. He has not had this pain before and it has only been mildly relieved with magic mouthwash. He is on a fentanyl patch and gabapentin for his chronic LE neuropathic pain. Denies any hemoptysis, fevers, chills, nausea, vomiting, chest pain or other symptoms. is oncologist is Dr. Portillo. 12/24/16 08:43 Past History - Past Medical History Allergies/Adverse Reactions: Allergies Allergy/AdvReac Type Severity Reaction Status Date / Time No Known Allergies Allergy Verified 12/24/16 08:01 Home Medications: Ambulatory Orders Gabapentin [Neurontin] 900 mg PO QID 03/03/14 Clopidogrel Bisulfate [Plavix -] 75 mg PO DAILY 07/26/16 Lisinopril 10 mg PO DAILY 07/26/16 Sertraline HCl [Zoloft -] 50 mg PO DAILY 07/26/16 Tamsulosin HCl [Flomax] 0.4 mg PO DAILY 07/26/16 Fentanyl 12 mcg TD Q27H 07/29/16 Folic Acid 1 mg PO DAILY 07/29/16 Miscellaneous Medical Supply [Outpatient Order] 1 [facility] ASDIR #1 misc Simvastatin 40 mg PO HS 07/29/16 CVA: Yes Hypercholesterolemia: Yes Psychiatric Problems: Yes (DEPRESSION) - Surgical History Abdominal Surgery: Yes (STOMACH EXCISION DUE TO ULCER) Appendectomy: Yes - Suicide/Smoking/Psychosocial Hx Smoking History: Current every day smoker Have you smoked in the past 12 months: Yes Number of Cigarettes Smoked Daily: 10 'Breaking Loose' booklet given: 03/11/14 Hx Alcohol Use: No Drug/Substance Use Hx: No Review of Systems - Review of Systems Constitutional: No: Chills, Fever HEENTM: Yes: Throat Pain. No: Blurred Vision Respiratory: No: Cough, Shortness of Breath, Wheezing Cardiac (ROS): No: Chest Pain ABD/GI: No: Constipated, Diarrhea, Nausea, Vomiting Integumentary: No: Bruising, Change in Color *Physical Exam - Physical Exam General Appearance: Yes: Nourished, Appropriately Dressed. No: Apparent Distress HEENT: positive: EOMI, LOGAN, Normal Voice. negative: Normal ENT Inspection, Pharynx Normal (Ertythematous poseterior oropharynx without signs of obvious bleed. Dry thick mucous on the base of his tongue.) Neck: positive: Trachea midline, Normal Thyroid, Supple. negative: Tender, Rigid Respiratory/Chest: positive: Lungs Clear, Normal Breath Sounds. negative: Chest Tender, Respiratory Distress Cardiovascular: positive: Regular Rhythm, Regular Rate, S1, S2. negative: Edema , Murmur Gastrointestinal/Abdominal: positive: Normal Bowel Sounds, Flat, Soft. negative : Tender Musculoskeletal: positive: Normal Inspection Extremity: positive: Normal Inspection, Normal Range of Motion Integumentary: positive: Normal Color, Dry, Warm Neurologic: positive: Fully Oriented, Alert, Normal Mood/Affect, Normal Response Medical Decision Making - Medical Decision Making 71 year old male throat cancer patient presenting with throat pain after belching. This may be an exacerbation by some stomach acid of his throat radiation injury for his treatment. He is tolerating PO water and crackers after viscous lidocaine and maalox use. CXR and throat XR not showing any violation of his esophagus. His physical exam was only significant for erythema and I did not appreciate subcutaneous air in throat or mediastinum. We had the call call Dr. Rodriguez twice without response. Will DC patient with follow up with his physician Dr. Rodriguez and ENT (Dr. Rivera). 12/24/16 09:29 *DC/Admit/Observation/Transfer Diagnosis at time of Disposition: Throat pain in adult - Discharge Dispostion Disposition: HOME Condition at time of disposition: Improved Admit: No - Referrals Referrals: Monster Rodriguez MD [Staff Physician] - Henry Rivera MD [Staff Physician] - - Patient Instructions Additional Instructions: You were seen for throat pain. We believe that this was some acid reflux that irritated your already sensitive throat. Please avoid spicy foods and try to eat softer foods until your throat is better. Please follow up with Dr. Rodriguez or the ENT physician (Dr. Rivera) as soon as possible.
--- NOTE | 2016-12-24 07:59 | PDOC ---
Attending Attestation - HPI HPI: 12/24/16 08:52 Patient is a 71 year old male with a significant past medical history of throat cancer, HTN, chronic lower leg pain who presents to the ED with complaints of burning throat that began this morning. Patient reports belching that caused phlegm to be produced, which lead to the burning of his throat. Patient reports using magic mouthwash with no relief. Patient states pain was rated initially a 10/10 in pain intensity but has decreased to a 5/10. Patient reports difficulty swallowing secondary to throat pain. Patient states receiving radiation 1 month ago. Denies fevers, chills. Denies recent sickness. Denies contact with sick individuals, out of state travel. Denies any other symptoms. Allergies: None Social history: Lives with . No smoking. No alcohol. No illicit drugs. Surgical history: None PMD: Dr Rivera. Dr paz (oncologist). - Physicial Exam PE: 12/24/16 08:52 GENERAL: Awake, alert, and fully oriented, in no acute distress HEAD: No signs of trauma EYES: PERRLA, EOMI, sclera anicteric, conjunctiva clear ENT: +Posterior pharynx red. +Dry mucous membrane Auricles normal inspection, hearing grossly normal, nares patent, oropharynx clear without exudates. NECK: Normal ROM, supple, no lymphadenopathy, JVD, or masses LUNGS: Breath sounds equal, clear to auscultation bilaterally. No wheezes, and no crackles HEART: Regular rate and rhythm, normal S1 and S2, no murmurs, rubs or gallops ABDOMEN: Soft, nontender, normoactive bowel sounds. No guarding, no rebound. No masses EXTREMITIES: Normal range of motion, no edema. No clubbing or cyanosis. No cords, erythema, or tenderness NEUROLOGICAL: Cranial nerves II through XII grossly intact. Normal speech, normal gait SKIN: Warm, Dry, normal turgor, no rashes or lesions noted. - Medical Decision Making 12/24/16 08:[address] Paz @8:57am. Awaiting call back. <Carlos Falk - Last Filed: 12/24/16 08:57> - Resident Resident Name: Jose Alejandro Nair - ED Attending Attestation I have performed the following: I have examined & evaluated the patient, The case was reviewed & discussed with the resident, I agree w/resident's findings & plan, Exceptions are as noted - Medical Decision Making 12/24/16 07:59 I, Dr. Ivone Maya, DO, attest that this document has been prepared under my direction and personally reviewed by me in its entirety. I further attest, that it accurately reflects all work, treatment, procedures and medical decision -making performed by me. 12/24/16 08:54 a/p: 71yo male with radiation therapy for throat cancer -today belched and now with burning sensation -xrays -ekg -GI coctail -pt will need either ENT scope with Dr. Rivera or scope with Dr. Paz for further eval of poss esophagitis vs radiation changes to posterior pharynx -will po challenge here in the ED 12/24/16 10:19 discussed with the patient the need for follow up with ENT or oncology for further eval. pt and family verbalize understanding of all instructions. tolerated po intake in the ED. <Ivone Maya - Last Filed: 12/24/16 10:20> Heart Score/ECG Review - ECG Intrepretation Comment:: 12/24/16 08:58 sinus at 61, nl axis, nl interval, no acute st/t wave findings <Ivone Maya - Last Filed: 12/24/16 10:20>
[2016-12-24 08:12] VITALS: BMI 23.5
[2016-12-24] MEDS ORDERED: MAG HYDROX/AL HYDROX/SIMETH 30 ML UNIT-DOSE CUP PO ONE (08:59)
[2016-12-24] MEDS ORDERED: LIDOCAINE VISCOUS 2% ORAL/TOP 100 ML BOTTLE MM ONE (08:59)
[2016-12-24] MEDS ORDERED: MAG HYDROX/AL HYDROX/SIMETH 30 ML UNIT-DOSE CUP ONE (09:15)
[2016-12-24 10:19] VITALS: BP 111/50; PULSE 74; TEMP 97.7
--- NOTE | 2016-12-25 11:55 | EKG ---
Test Reason : Blood Pressure : / mmHG Vent. Rate : 061 BPM Atrial Rate : 061 BPM P-R Int : 176 ms QRS Dur : 090 ms QT Int : 394 ms P-R-T Axes : 062 051 052 degrees QTc Int : 396 ms NORMAL SINUS RHYTHM NORMAL ECG WHEN COMPARED WITH ECG OF 26-JUL-2016 04:00, NO SIGNIFICANT CHANGE WAS FOUND Confirmed by KYLIE GUERRERO MD ([id number]) on 12/25/2016 11:54:59 AM Referred By: Confirmed By:KYLIE GUERRERO MD
== END 2016-12-24 10:20 | disposition home or self-care (01) ==
LOC: JER 07:16
DX: C14.0 Malignant neoplasm of pharynx, unspecified (principal); F17.210 Nicotine dependence, cigarettes, uncomplicated; I10 Essential (primary) hypertension; G58.8 Other specified mononeuropathies; F32.9 Major depressive disorder, single episode, unspecified; Z86.73 Personal history of transient ischemic attack (TIA), and cerebral infarction without residual deficits
CPT/HCPCS: 70360-TC; 71020-TC; 93005; 93010; 99282-25

== ENCOUNTER 2017-06-22 15:54 | Observation (INO) | payer OTHER ==
[2017-06-22 16:08] VITALS: BMI 20.5
--- NOTE | 2017-06-22 16:09 | PDOC ---
Rapid Medical Evaluation Medical Evaluation: Allergies Allergy/AdvReac Type Severity Reaction Status Date / Time No Known Allergies Allergy Verified 06/22/17 16:04 06/22/17 16:04 The patient with PMH of CVA, throat cancer, presents with a chief complaint of chest pain for two days. Pain radiates to L arm and hand. Pain comes and goes. The patient was sitting when the pain began. No cardiac history. Quit smoking two weeks ago. I have performed a brief in-person evaluation of this patient; Pertinent physical exam findings: ambulatory, in no respiratory distress. RRR, CTAB, I have ordered the following: CBC, CMP, Cardiac Labs, PT/INR, UA, Mag, EKG, Chest x-ray The patient will proceed to the ED for further evaluation.
[2017-06-22 16:34] LABS: BASO % 0.6 % (0-2.0); EOS % 0.6 % (0-4.5); HEMATOCRIT 38.7 % (35.4-49); HEMOGLOBIN 13.3 GM/dL (11.7-16.9); LYMPH % 10.9 % (8-40); MCH 30.5 pg (25.7-33.7); MCHC 34.3 g/dl (32.0-35.9); MEAN CELL VOLUME 88.9 fl (80-96); MONO % 12.6 % (3.8-10.2); NEUT % 75.3 % (42.8-82.8); PLATELET COUNT 172 K/MM3 (134-434); RBC 4.36 M/mm3 (4.00-5.60); RDW 15.5 % (11.9-15.9); WHITE BLOOD COUNT 4.4 K/mm3 (4.0-10.0)
[2017-06-22 16:46] LABS: INR 1.05 (0.82-1.09); PROTHROMBIN TIME (PATIENT) 11.9 SEC (9.98-11.88)
[2017-06-22 16:59] LABS: ALBUMIN 3.9 g/dl (3.4-5.0); ANION GAP 7 (8-16); BILIRUBIN,TOTAL 0.3 mg/dL (0.2-1.0); BLOOD UREA NITROGEN 11 mg/dL (7-18); CALCIUM 8.7 mg/dL (8.5-10.1); CHLORIDE 99 mmol/L (98-107); CO2 27 mmol/L (21-32); CREATININE 0.7 mg/dL (0.7-1.3); GLUCOSE,RANDOM 83 mg/dL (74-106); MAGNESIUM 2.2 mg/dL (1.8-2.4); POTASSIUM 3.8 mmol/L (3.5-5.1); SGOT/AST 9 U/L (15-37); SGPT/ALT 12 U/L (12-78); SODIUM 133 mmol/L (136-145); TOT PROT 7.2 g/dl (6.4-8.2)
[2017-06-22 17:00] LABS: ALK PHOS 88 U/L (45-117)
[2017-06-22 17:24] LABS: URINE APPEARANCE SLCLOUDY; URINE BILIRUBIN NEGATIVE (<2.0 mg/dL); URINE BLOOD 3+ (NEGATIVE); URINE COLOR YELLOW; URINE GLUCOSE (UA) NEGATIVE (NEGATIVE); URINE KETONE NEGATIVE (NEGATIVE); URINE LEUK ESTERASE NEGATIVE (NEGATIVE); URINE NITRITE NEGATIVE (NEGATIVE); URINE PROTEIN NEGATIVE (NEGATIVE); URINE UROBILINOGEN NEGATIVE mg/dL (0.2-1.0)
[2017-06-22 17:26] LABS: CALCIUM OXALATE CRYSTALS RARE /hpf (NONE SEEN); EPI CELLS RARE /HPF (FEW); URINE MUCUS RARE
--- NOTE | 2017-06-22 17:49 | PDOC ---
History of Present Illness - General Chief Complaint: Chest Pain Stated Complaint: CHEST PAIN Time Seen by Provider: 06/22/17 16:04 History Source: Patient Exam Limitations: No Limitations - History of Present Illness Initial Comments: 06/22/17 17:43 Patient is a 71M with history of throat ca, cva, gi ulcers here today complaining of chest pain for 48 hours. He describes the chest pain as something sitting on his chest. He states the pain started when he was sitting. The pain is not relieved with rest or worsened with exertion, but the patient says he does not move around much. The pain is worsened with inspiration. Denies history of prior blood clots. Denies recent travel and lung swelling. Patient has had radiation for his cancer, and his last check up in 03/11 was normal. Patient reports that he has been losing weight despite attempts to gain weight. Past History - Past Medical History Allergies/Adverse Reactions: Allergies Allergy/AdvReac Type Severity Reaction Status Date / Time No Known Allergies Allergy Verified 06/22/17 16:04 Home Medications: Ambulatory Orders Gabapentin [Neurontin] 900 mg PO QID 03/03/14 Clopidogrel Bisulfate [Plavix -] 75 mg PO DAILY 07/26/16 Sertraline HCl [Zoloft -] 50 mg PO DAILY 07/26/16 Tamsulosin HCl [Flomax] 0.4 mg PO DAILY 07/26/16 Fentanyl 12 mcg TD Q27H 07/29/16 Folic Acid 1 mg PO DAILY 07/29/16 Miscellaneous Medical Supply [Outpatient Order] 1 each ASDIR #1 misc Simvastatin 40 mg PO HS 07/29/16 Cancer: Yes (throat) CVA: Yes COPD: No HTN: Yes Hypercholesterolemia: Yes Psychiatric Problems: Yes (DEPRESSION) - Surgical History Abdominal Surgery: Yes (STOMACH EXCISION DUE TO ULCER) Appendectomy: Yes - Suicide/Smoking/Psychosocial Hx Smoking History: Former smoker Have you smoked in the past 12 months: Yes Number of Cigarettes Smoked Daily: 10 If you are a former smoker, when did you quit?: 08/09 Information on smoking cessation initiated: Yes 'Breaking Loose' booklet given: 06/22/17 Hx Alcohol Use: No Drug/Substance Use Hx: No Substance Use Type: None Review of Systems - Review of Systems Comments:: 06/22/17 17:46 GENERAL/CONSTITUTIONAL: No fever or chills. No weakness. HEAD, EYES, EARS, NOSE AND THROAT: No change in vision. No sore throat. CARDIOVASCULAR: Positive for chest pain. Negative for shortness of breath RESPIRATORY: No cough, wheezing, or hemoptysis. GASTROINTESTINAL: No nausea, vomiting, diarrhea or constipation. GENITOURINARY: No dysuria, frequency, or change in urination. MUSCULOSKELETAL: No joint or muscle swelling or pain. No neck or back pain. SKIN: No rash NEUROLOGIC: No headache, vertigo, loss of consciousness, or change in strength/ sensation. ENDOCRINE: No increased thirst. Positive for weight loss. HEMATOLOGIC/LYMPHATIC: No anemia, easy bleeding, or history of blood clots. ALLERGIC/IMMUNOLOGIC: No hives or skin allergy. *Physical Exam - Vital Signs Last Vital Signs Temp Pulse Resp BP Pulse Ox 98.4 F 74 18 147/66 100 06/22/17 16:05 06/22/17 16:05 06/22/17 16:05 06/22/17 16:05 06/22/17 16:05 - Physical Exam Comments: 06/22/17 17:49 GENERAL: Awake, alert, and fully oriented, in no acute distress HEAD: No signs of trauma, normocephalic, atraumatic EYES: PERRLA, EOMI, sclera anicteric, conjunctiva clear ENT: Auricles normal inspection, hearing grossly normal, nares patent, oropharynx clear without exudates. Moist mucosa NECK: Normal ROM, supple, no lymphadenopathy, JVD, or masses LUNGS: No distress, speaks full sentences, clear to auscultation bilaterally HEART: Regular rate and rhythm, normal S1 and S2, no murmurs, rubs or gallops, peripheral pulses normal and equal bilaterally. ABDOMEN: Soft, nontender, normoactive bowel sounds. No guarding, no rebound. No masses EXTREMITIES: Normal inspection, Normal range of motion, no edema. No clubbing or cyanosis. NEUROLOGICAL: Cranial nerves II through XII grossly intact. Normal speech, no focal sensorimotor deficits SKIN: Warm, Dry, normal turgor, no rashes or lesions noted. ED Treatment Course - LABORATORY CBC & Chemistry Diagram: 06/22/17 16:26 06/22/17 16:26 - ADDITIONAL ORDERS Additional order review: Laboratory Results 06/22/17 06/22/17 06/22/17 17:15 16:26 16:26 PT with INR INR Sodium 133 L Potassium 3.8 Chloride 99 Carbon Dioxide 27 Anion Gap 7 L BUN 11 Creatinine 0.7 D Creat Clearance w eGFR > 60 Random Glucose 83 D Calcium 8.7 Magnesium 2.2 Total Bilirubin 0.3 D AST 9 L D ALT 12 Alkaline Phosphatase 88 D Creatine Kinase 31 L Troponin I < 0.02 Total Protein 7.2 D Albumin 3.9 D Urine Color Yellow Urine Appearance Slcloudy Urine pH 5.0 Ur Specific [place] 1.016 Urine Protein Negative Urine Glucose (UA) Negative Urine Ketones Negative Urine Blood 3+ H Urine Nitrite Negative Urine Bilirubin Negative Urine Urobilinogen Negative Ur Leukocyte Esterase Negative Urine WBC (Auto) 3 Urine RBC (Auto) 369 Ur Epithelial Cells Rare Calcium Oxalate Crystal Rare Urine Mucus Rare 06/22/17 16:26 PT with INR 11.90 H INR 1.05 Sodium Potassium Chloride Carbon Dioxide Anion Gap BUN Creatinine Creat Clearance w eGFR Random Glucose Calcium Magnesium Total Bilirubin AST ALT Alkaline Phosphatase Creatine Kinase Troponin I Total Protein Albumin Urine Color Urine Appearance Urine pH Ur Specific [place] Urine Protein Urine Glucose (UA) Urine Ketones Urine Blood Urine Nitrite Urine Bilirubin Urine Urobilinogen Ur Leukocyte Esterase Urine WBC (Auto) Urine RBC (Auto) Ur Epithelial Cells Calcium Oxalate Crystal Urine Mucus 06/22/17 16:26 RBC 4.36 D MCV 88.9 MCHC 34.3 RDW 15.5 MPV 8.0 Neutrophils % 75.3 D Lymphocytes % 10.9 D Monocytes % 12.6 H Eosinophils % 0.6 Basophils % 0.6 - RADIOLOGY Radiology Studies Ordered: Category Date Time Status CHEST CTA [CT] Stat CT Scan 06/22/17 16:58 Ordered Medical Decision Making - Medical Decision Making 06/22/17 17:49 Patient is a 71M with history of throat cancer, cva, gi ulcer here today with chest pain. Vital signs stable and normal. Concern for PE elevated given cancer history, weight loss, pleuritic chest pain. DDx also includes: ACS, arrhythmia. 06/22/17 18:37 Laboratory Tests 06/22/17 06/22/17 06/22/17 16:26 16:26 16:26 WBC 4.4 Hgb 13.3 D Hct 38.7 D Plt Count 172 D INR 1.05 Troponin I < 0.02 Urine Blood Urine Nitrite Ur Leukocyte Esterase Urine WBC (Auto) Urine RBC (Auto) 06/22/17 17:15 WBC Hgb Hct Plt Count INR Troponin I Urine Blood 3+ H Urine Nitrite Negative Ur Leukocyte Esterase Negative Urine WBC (Auto) 3 Urine RBC (Auto) 369 CBC normal. UA shows blood and 369 RBC, no signs of infection. CMP reassuring. Troponin undetectable. EKG shows normal sinus rhythm with rate of 70. No st elevations/depressions. No significant t wave inversions. Good R wave progression. Normal axis. No significant q waves. 06/22/17 19:[address] Sen. *DC/Admit/Observation/Transfer Diagnosis at time of Disposition: Chest pain - Referrals Referrals: Armando Nuñez [Primary Care Provider] - - Patient Instructions - Post Discharge Activity
--- NOTE | 2017-06-22 18:22 | PDOC ---
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 No prior DVT, travel 06/22/17 18:23 - Physicial Exam PE: 06/22/17 18:28 GENERAL: The patient is in no acute distress. HEAD: Normal LUNGS: Breath sounds equal, clear to auscultation bilaterally. No wheezes, and no crackles. HEART:Regular rate and rhythm, normal S1 and S2 without murmur, rub or gallop. ABDOMEN: Soft, nontender, EXTREMITIES: Normal range of motion, no edema NEUROLOGICAL: Cranial nerves II through XII grossly intact. Normal speech. No focal neurological deficits. - Medical Decision Making 06/22/17 18:29 71 yo M h/o CA presenting with Chest pain which is pleuritic DD: Musculoskeletal, Pleurisy, PE, effusion Will do: labs ekg CTA re assess Patient signed out to overnight attending Anticipate admission
[2017-06-22] MEDS ORDERED: GABAPENTIN 300 MG CAPSULE (FP) PO ONE (18:26)
[2017-06-22] MEDS ORDERED: morphine CARPU-JECT 4 MG/1 ML DISP.SYRIN IVPUSH ONE (18:44)
[2017-06-22] MEDS ORDERED: morphine SULFATE 4 MG/ML VIAL ONE (19:02)
--- NOTE | 2017-06-22 19:37 | PDOC ---
*Physical Exam - Vital Signs Last Vital Signs Temp Pulse Resp BP Pulse Ox 98.4 F 72 18 143/96 100 06/22/17 16:05 06/22/17 19:26 06/22/17 19:26 06/22/17 19:26 06/22/17 19:26 ED Treatment Course - LABORATORY CBC & Chemistry Diagram: 06/25/17 06:42 06/25/17 06:42 - ADDITIONAL ORDERS Additional order review: Laboratory Results 06/22/17 06/22/17 06/22/17 17:15 16:26 16:26 PT with INR INR Sodium 133 L Potassium 3.8 Chloride 99 Carbon Dioxide 27 Anion Gap 7 L BUN 11 Creatinine 0.7 D Creat Clearance w eGFR > 60 Random Glucose 83 D Calcium 8.7 Magnesium 2.2 Total Bilirubin 0.3 D AST 9 L D ALT 12 Alkaline Phosphatase 88 D Creatine Kinase 31 L Troponin I < 0.02 Total Protein 7.2 D Albumin 3.9 D Urine Color Yellow Urine Appearance Slcloudy Urine pH 5.0 Ur Specific [place] 1.016 Urine Protein Negative Urine Glucose (UA) Negative Urine Ketones Negative Urine Blood 3+ H Urine Nitrite Negative Urine Bilirubin Negative Urine Urobilinogen Negative Ur Leukocyte Esterase Negative Urine WBC (Auto) 3 Urine RBC (Auto) 369 Ur Epithelial Cells Rare Calcium Oxalate Crystal Rare Urine Mucus Rare 06/22/17 16:26 PT with INR 11.90 H INR 1.05 Sodium Potassium Chloride Carbon Dioxide Anion Gap BUN Creatinine Creat Clearance w eGFR Random Glucose Calcium Magnesium Total Bilirubin AST ALT Alkaline Phosphatase Creatine Kinase Troponin I Total Protein Albumin Urine Color Urine Appearance Urine pH Ur Specific [place] Urine Protein Urine Glucose (UA) Urine Ketones Urine Blood Urine Nitrite Urine Bilirubin Urine Urobilinogen Ur Leukocyte Esterase Urine WBC (Auto) Urine RBC (Auto) Ur Epithelial Cells Calcium Oxalate Crystal Urine Mucus 06/22/17 16:26 RBC 4.36 D MCV 88.9 MCHC 34.3 RDW 15.5 MPV 8.0 Neutrophils % 75.3 D Lymphocytes % 10.9 D Monocytes % 12.6 H Eosinophils % 0.6 Basophils % 0.6 - Medications Given in the ED: ED Medications Discontinued Medications Generic Name Dose Route Start Last Admin Trade Name Freq PRN Reason Stop Dose Admin Gabapentin 900 mg 06/22/17 18:26 06/22/17 18:59 Neurontin - PO 06/22/17 18:27 900 mg ONCE ONE Administration Morphine Sulfate 4 mg 06/22/17 18:44 06/22/17 18:59 Morphine Injection - IVPUSH 06/22/17 18:45 4 mg ONCE ONE Administration Medical Decision Making - Medical Decision Making 06/22/17 19:36 The patient was signed out to me by Dr. Vargas, day team. The patient is a 71M who is presenting with pleuritic CP. Pending CTA. Likely disposition is observation. Pending CTA. 06/23/17 01:45 CTA negative for PE. Pt continues to complain of discomfort. Will admit pt. I have endorsed the patient to Dr. Laguerre for admission. *DC/Admit/Observation/Transfer Diagnosis at time of Disposition: Chest pain Qualifiers: Chest pain type: unspecified Qualified Code(s): R07.9 - Chest pain, unspecified - Discharge Dispostion Disposition: HOME Condition at time of disposition: Improved Admit: Yes - Referrals - Patient Instructions - Post Discharge Activity
[2017-06-22] MEDS ORDERED: KETOROLAC TROMETHAMINE 30 MG/1 ML VIAL IVPUSH ONE (21:51)
[2017-06-22] MEDS ORDERED: KETOROLAC TROMETHAMINE 15 MG/ML VIAL ONE (22:02)
--- NOTE | 2017-06-23 01:59 | HP ---
Admitting History and Physical - Admission Chief Complaint: Chest Pain, L- Shoulder Pain History of Present Illness: This is a 71 y.o man with a past medical history of Throat Ca (completed RT), CVA, HTN, HLD, Bipolar Disorder, Hep C (treated with injections 11 yrs ago), Chronic Pain Syndrome. Who presents to the ED with chest pressure x2 days. Patient reports the pressure as intermittent, sharp radiating to jaw, neck and shoulder. He states "feeling anxious and then the pressure gets worse". 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 Patient denies fever, cough, RODRIGUEZ, dizziness, palpitations, N/V/D, constipation, dysuria History Source: Patient Limitations to Obtaining History: No Limitations - Past Medical History [employer]: Yes: CVA, Other (Chronic Pain Syndrome) Cardiovascular: Yes: HTN, Hyperlipdemia Hepatobiliary: Yes: Hepatitis C Renal/: Yes: BPH Heme/Onc: Yes: Cancer (Throat (s/p RT)) Psych: Yes: Bipolar - Past Surgical History Past Surgical History: Yes: Appendectomy Additional Past Surgical History: Thyroid cyst removed Stomach Excision 2/2 Ulcer Lumbar Discectomy - Smoking History Smoking history: Former smoker Have you smoked in the past 12 months: Yes Aproximately how many cigarettes per day: 10 If you are a former smoker, when did you quit?: 08/09 - Alcohol/Substance Use Hx Alcohol Use: No History of Substance Use: reports: None - Social History Usual Living Arrangement: Yes: With Spouse ADL: Independent History of Recent Travel: No Home Medications - Allergies Allergies/Adverse Reactions: Allergies Allergy/AdvReac Type Severity Reaction Status Date / Time No Known Allergies Allergy Verified 06/22/17 16:04 - Home Medications Home Medications: Ambulatory Orders Gabapentin [Neurontin] 900 mg PO QID 03/03/14 Clopidogrel Bisulfate [Plavix -] 75 mg PO DAILY 07/26/16 Sertraline HCl [Zoloft -] 50 mg PO DAILY 07/26/16 Tamsulosin HCl [Flomax] 0.4 mg PO DAILY 07/26/16 Fentanyl 12 mcg TD Q27H 07/29/16 Folic Acid 1 mg PO DAILY 07/29/16 Miscellaneous Medical Supply [Outpatient Order] 1 [facility] [place]vastatin 40 mg PO HS 07/29/16 Family Disease History - Family Disease History Family Disease History: Heart Disease: Father (NM at 65), CA: Brother (ZULAY- both ), Other: Mother (old age), Brother Review of Systems - Review of Systems Constitutional: reports: Chills, Diaphoresis Eyes: reports: No Symptoms HENT: reports: No Symptoms Neck: reports: Pain on Movement Cardiovascular: reports: Chest Pain Respiratory: reports: No Symptoms Gastrointestinal: reports: No Symptoms Genitourinary: reports: No Symptoms Breasts: reports: No Symptoms Reported Musculoskeletal: reports: Extremity Pain, Joint Pain Integumentary: reports: No Symptoms Neurological: reports: No Symptoms Endocrine: reports: No Symptoms Hematology/Lymphatic: reports: No Symptoms Psychiatric: reports: Anxiety Physical Examination Vital Signs: Vital Signs Temperature 98.4 F 06/22/17 16:05 Pulse Rate 70 06/23/17 00:49 Respiratory Rate 18 06/23/17 00:49 Blood Pressure 134/72 06/23/17 00:49 O2 Sat by Pulse Oximetry (%) 98 06/23/17 00:49 Constitutional: Yes: Anxious, Mild Distress, Thin Eyes: Yes: WNL, Conjunctiva Clear, EOM Intact, PERRL HENT: Yes: WNL, Atraumatic, Normocephalic Neck: Yes: Tenderness, Other (surgical scars- healed) Cardiovascular: Yes: Regular Rate and Rhythm, S1, S2, Other (CP reproducible upon palpation) Respiratory: Yes: Regular, CTA Bilaterally, On Nasal O2 Gastrointestinal: Yes: WNL ...Rectal Exam: Yes: Deferred Renal/: Yes: WNL Breast(s): Yes: WNL Musculoskeletal: Yes: Muscle Pain Extremities: Yes: WNL Edema: No Peripheral Pulses WNL: Yes Integumentary: Yes: WNL Neurological: Yes: WNL, Alert, Oriented, Cran Nerves II-XII Intact ...Motor Strength: WNL Psychiatric: Yes: WNL, Alert, Oriented Labs: CBC, BMP 06/22/17 16:26 06/22/17 16:26 Laboratory Results - last 24 hr 06/22/17 06/22/17 06/22/17 16:26 16:26 16:26 WBC 4.4 RBC 4.36 D Hgb 13.3 D Hct 38.7 D MCV 88.9 MCH 30.5 MCHC 34.3 RDW 15.5 Plt Count 172 D MPV 8.0 Neutrophils % 75.3 D Lymphocytes % 10.9 D Monocytes % 12.6 H Eosinophils % 0.6 Basophils % 0.6 PT with INR 11.90 H INR 1.05 Sodium 133 L Potassium 3.8 Chloride 99 Carbon Dioxide 27 Anion Gap 7 L BUN 11 Creatinine 0.7 D Creat Clearance w eGFR > 60 Random Glucose 83 D Calcium 8.7 Phosphorus Magnesium 2.2 Total Bilirubin 0.3 D AST 9 L D ALT 12 Alkaline Phosphatase 88 D Creatine Kinase Troponin I Total Protein 7.2 D Albumin 3.9 D Urine Color Urine Appearance Urine pH Ur Specific [place] Urine Protein Urine Glucose (UA) Urine Ketones Urine Blood Urine Nitrite Urine Bilirubin Urine Urobilinogen Ur Leukocyte Esterase Urine WBC (Auto) Urine RBC (Auto) Ur Epithelial Cells Calcium Oxalate Crystal Urine Mucus 06/22/17 06/22/17 06/22/17 16:26 17:15 20:47 WBC RBC Hgb Hct MCV MCH MCHC RDW Plt Count MPV Neutrophils % Lymphocytes % Monocytes % Eosinophils % Basophils % PT with INR INR Sodium Potassium Chloride Carbon Dioxide Anion Gap BUN Creatinine Creat Clearance w eGFR Random Glucose Calcium Phosphorus Magnesium Total Bilirubin AST ALT Alkaline Phosphatase Creatine Kinase 31 L 35 L Troponin I < 0.02 < 0.02 Total Protein Albumin Urine Color Yellow Urine Appearance Slcloudy Urine pH 5.0 Ur Specific [place] 1.016 Urine Protein Negative Urine Glucose (UA) Negative Urine Ketones Negative Urine Blood 3+ H Urine Nitrite Negative Urine Bilirubin Negative Urine Urobilinogen Negative Ur Leukocyte Esterase Negative Urine WBC (Auto) 3 Urine RBC (Auto) 369 Ur Epithelial Cells Rare Calcium Oxalate Crystal Rare Urine Mucus Rare 06/23/17 06/23/17 06/23/17 02:25 06:00 06:00 WBC 2.3 L D RBC 4.06 Hgb 12.6 Hct 36.0 MCV 88.5 MCH 30.9 MCHC 34.9 RDW 15.2 Plt Count 136 D MPV 8.0 Neutrophils % 54.5 D Lymphocytes % 26.2 D Monocytes % 16.1 H Eosinophils % 2.5 D Basophils % 0.7 PT with INR INR Sodium 135 L Potassium 3.9 Chloride 101 Carbon Dioxide 31 Anion Gap 3 L BUN 9 Creatinine 0.7 Creat Clearance w eGFR Random Glucose 93 Calcium 8.5 Phosphorus 4.1 D Magnesium 2.0 Total Bilirubin AST ALT Alkaline Phosphatase Creatine Kinase 39 Troponin I < 0.02 Total Protein Albumin Urine Color Urine Appearance Urine pH Ur Specific [place] Urine Protein Urine Glucose (UA) Urine Ketones Urine Blood Urine Nitrite Urine Bilirubin Urine Urobilinogen Ur Leukocyte Esterase Urine WBC (Auto) Urine RBC (Auto) Ur Epithelial Cells Calcium Oxalate Crystal Urine Mucus Current Medications Generic Name Dose Route Start Last Admin Trade Name Wilma PRN Reason Stop Dose Admin Aspirin 81 mg 06/23/17 10:00 Asa - PO DAILY [facility] Atorvastatin Calcium 20 mg 06/23/17 22:00 Lipitor - PO HS [facility] Clopidogrel Bisulfate 75 mg 06/23/17 10:00 Plavix - PO DAILY [facility] Folic Acid 1 mg 06/23/17 10:00 Folic Acid - PO DAILY [facility] Gabapentin 900 mg 06/23/17 10:00 Neurontin - PO QID [facility] Sertraline HCl 50 mg 06/23/17 10:00 Zoloft - PO DAILY [facility] Tamsulosin HCl 0.4 mg 06/23/17 08:30 Flomax - PO DAILY@0830 CAYLA Intake & Output 06/20/17 06/21/17 06/22/17 06/23/17 23:59 23:59 23:59 23:59 Intake Total 12 Balance 12 Weight 72.575 kg 72.575 kg Imaging - Results Chest X-ray: Report Reviewed, Image Reviewed Cat Scan: Report Reviewed, Image Reviewed Problem List - Problems (1) Chest pain Code(s): R07.9 - CHEST PAIN, UNSPECIFIED Qualifiers: Chest pain type: unspecified Qualified Code(s): R07.9 - Chest pain, unspecified (2) Hypertension Code(s): I10 - ESSENTIAL (PRIMARY) HYPERTENSION (4) Hematuria Code(s): R31.9 - HEMATURIA, UNSPECIFIED (5) BPH (benign prostatic hyperplasia) Code(s): N40.0 - BENIGN PROSTATIC HYPERPLASIA WITHOUT LOWER URINRY TRACT SYMP (6) Bipolar disorder Code(s): F31.9 - BIPOLAR DISORDER, UNSPECIFIED (7) HLD (hyperlipidemia) Code(s): E78.5 - HYPERLIPIDEMIA, UNSPECIFIED (8) DVT prophylaxis Code(s): SGL5587 - Assessment/Plan This is a 71 y/o man with a PMHx of: Throat Ca (RT), HTN, HLD, Bipolar Disorder , BPH, CVA, Hep C (treated 11 yrs ago, inj). Placed on Tele Observation for Atypical Chest Pain r/o ACS Plan: 1. Atypical CP- r/o ACS, continue cardiac monitoring, Serial Enzymes, EKG- NSR no ST or TWI, Appreicate Cardiology consult, Echo, Asa 2. Hypertension- Stable, continue home meds, monitor renal function 3. HLD- Stable, Continue home med, monitor LFTs 4. Hematuria- UA +3 blood, +RBCs, possibly UTI vs Nephrolithiasis vs BPH vs Neoplasm, Renal US 5. CVA- Stable, Fall Precautions, continue home meds 6. Neuropathic Pain Syndrome- Continue Fentanyl Patch 7. BPH- Continue Flomax 8. Bipolar Disorder- Stable, continue Zoloft 9.Throat Ca- Completed RT, FU with Heme/Onc in outpatient setting as indicated 10. Hep C- Stable, completed treatments 11. FEN- PO fluids as tolerated, Replete lytes prn, Soft Low Na Diet 12. DVT ppx- SCDs, Consider ACs if LOS> 48 hrs Code Status: Full Code Dispo: Tele Observation Visit type - Emergency Visit Emergency Visit: Yes ED Registration Date: 06/22/17 Care time: The patient presented to the Emergency Department on the above date and was hospitalized for further evaluation of their emergent condition. - New Patient This patient is new to me today: Yes Date on this admission: 06/23/17 - Critical Care Critical Care patient: No Hospitalist Screening - Colonoscopy Questionnaire Colonoscopy Questionnaire: Colonoscopy Questionnaire - Patient: 50 - 75 years old and never had a screening colonoscopy: No History of colon or rectal polyps, or CA: Yes History of IBD, Crohn's disease or UC: No History of abdominal radiation therapy as a child: No - Relative: 1 with colon or rectal CA, or polyps at age 60 or younger: No Colon or rectal CA diagnosed at age 45 or younger: No Multiple relatives with colon or rectal CA: No - Outcome: Screening Result: Positive Screen
[2017-06-23] MEDS ORDERED: GABAPENTIN 300 MG CAPSULE (FP) PO ONE (02:31)
[2017-06-23] MEDS ORDERED: morphine SULFATE 4 MG/ML VIAL IVPUSH ONE (03:22)
[2017-06-23 07:34] LABS: BASO % 0.7 % (0-2.0); EOS % 2.5 % (0-4.5); HEMOGLOBIN 12.6 GM/dL (11.7-16.9); LYMPH % 26.2 % (8-40); MCH 30.9 pg (25.7-33.7); MCHC 34.9 g/dl (32.0-35.9); MEAN CELL VOLUME 88.5 fl (80-96); MONO % 16.1 % (3.8-10.2); NEUT % 54.5 % (42.8-82.8); PLATELET COUNT 136 K/MM3 (134-434); RBC 4.06 M/mm3 (4.00-5.60); RDW 15.2 % (11.9-15.9); WHITE BLOOD COUNT 2.3 K/mm3 (4.0-10.0)
[2017-06-23 07:45] LABS: ANION GAP 3 (8-16); BLOOD UREA NITROGEN 9 mg/dL (7-18); CALCIUM 8.5 mg/dL (8.5-10.1); CHLORIDE 101 mmol/L (98-107); CO2 31 mmol/L (21-32); CREATININE 0.7 mg/dL (0.7-1.3); GLUCOSE,RANDOM 93 mg/dL (74-106); PHOSPHOROUS 4.1 mg/dL (2.5-4.9); POTASSIUM 3.9 mmol/L (3.5-5.1); SODIUM 135 mmol/L (136-145)
[2017-06-23] MEDS: SERTRALINE HCL 50 MG TABLET (FP) PO SCH (09:22)
[2017-06-23] MEDS: GABAPENTIN 300 MG CAPSULE (FP) PO SCH ×4 (09:22→21:28)
[2017-06-23] MEDS: FOLIC ACID 1 MG TABLET (FP) PO SCH (09:22)
[2017-06-23] MEDS: CLOPIDOGREL BISULFATE 75 MG TABLET (FP) PO SCH (09:22)
[2017-06-23] MEDS: TAMSULOSIN HCL 0.4 MG CAP.ER.24H (FP) PO SCH (09:22)
[2017-06-23] MEDS: ASPIRIN 81 MG CHEWABLE TABLETS PO SCH (09:22)
[2017-06-23] MEDS ORDERED: FENTANYL 12 MCG TD SCH ×2 (09:30→19:01)
[2017-06-23] MEDS: NICOTINE 21 MG/24 HOURS TOPICAL PATCH TD SCH ×2 (10:00→13:54)
--- NOTE | 2017-06-23 13:29 | CON.CARD ---
Consult Consult Specialty:: cardiology Referred by:: Shade Reason for Consultation:: Chest pain - History of Present Illness Chief Complaint: Chest pain History of Present Illness: The patient is a 71-year-old man, with a history of hypertension, hyperlipidemia , stroke, hepatitis C, throat cancer, status post radiation therapy, now admitted with chest pains. The patient reports chest pressure and discomfort on minimal leftward. The symptoms are relatively new. He admits to a sedentary lifestyle. Does not walk any significant distances. The patient is currently comfortable and symptom free. He ruled out for myocardial infarction. There is no CHF. There is no evidence of pulmonary emboli on CTA. 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, Other (Chronic Pain Syndrome) Cardio/Vascular: Yes: HTN, Hyperlipdemia Hepatobiliary: Yes: Hepatitis C Renal/: Yes: BPH Psych: Yes: Bipolar - Past Surgical History Past Surgical History: Yes: Appendectomy - Alcohol/Substance Use Hx Alcohol Use: No History of Substance Use: reports: None - Smoking History Smoking history: Former smoker Have you smoked in the past 12 months: Yes Aproximately how many cigarettes per day: 10 If you are a former smoker, when did you quit?: 08/09 - Social History ADL: Independent History of Recent Travel: No Home Medications - Allergies Allergies/Adverse Reactions: Allergies Allergy/AdvReac Type Severity Reaction Status Date / Time No Known Allergies Allergy Verified 06/22/17 16:04 - Home Medications Home Medications: Ambulatory Orders Gabapentin [Neurontin] 900 mg PO QID 03/03/14 Clopidogrel Bisulfate [Plavix -] 75 mg PO DAILY 07/26/16 Sertraline HCl [Zoloft -] 50 mg PO DAILY 07/26/16 Tamsulosin HCl [Flomax] 0.4 mg PO DAILY 07/26/16 Fentanyl 12 mcg TD Q27H 07/29/16 Folic Acid 1 mg PO DAILY 07/29/16 Miscellaneous Medical Supply [Outpatient Order] 1 each ASDIR #1 misc Simvastatin 40 mg PO HS 07/29/16 Family Disease History - Family Disease History Family Disease History: Heart Disease: Father ([place] at 65), [place]: Brother (ZULAY- both ), Other: Mother (old age), Brother Review of Systems - Review of Systems Constitutional: reports: No Symptoms Eyes: reports: No Symptoms HENT: reports: No Symptoms Neck: reports: No Symptoms Cardiovascular: reports: Chest Pain Respiratory: reports: No Symptoms Gastrointestinal: reports: No Symptoms Genitourinary: reports: No Symptoms Breasts: reports: No Symptoms Reported Musculoskeletal: reports: No Symptoms Integumentary: reports: No Symptoms Neurological: reports: No Symptoms Endocrine: reports: No Symptoms Hematology/Lymphatic: reports: No Symptoms Psychiatric: reports: No Symptoms Vital Signs: Vital Signs Temperature 98.7 F 06/23/17 09:54 Pulse Rate 66 06/23/17 09:54 Respiratory Rate 18 06/23/17 09:54 Blood Pressure 144/73 06/23/17 09:54 O2 Sat by Pulse Oximetry (%) 98 06/23/17 09:54 Constitutional: Yes: Well Nourished, No Distress, Calm Eyes: Yes: WNL, Conjunctiva Clear, EOM Intact HENT: Yes: WNL, Atraumatic, Normocephalic Neck: Yes: WNL, Supple, Trachea Midline Respiratory: Yes: WNL, Regular, CTA Bilaterally Gastrointestinal: Yes: WNL, Normal Bowel Sounds, Soft Renal/: Yes: WNL Cardiovascular: Yes: WNL, Regular Rate and Rhythm JVD: No Carotid Bruit: No Heart Sounds: Yes: S1, S2 Musculoskeletal: Yes: WNL Extremities: Yes: WNL Edema: No Peripheral Pulses WNL: Yes Integumentary: Yes: WNL Neurological: Yes: WNL, Alert, Oriented ...Motor Strength: WNL Psychiatric: Yes: WNL - Other Data Labs, Other Data: CBC, BMP 06/23/17 06:00 06/23/17 06:00 INR, PTT INR 1.05 (0.82-1.09) 06/22/17 16:26 Troponin, BNP 06/22/17 06/22/17 06/23/17 16:26 20:47 02:25 Troponin I < 0.02 < 0.02 < 0.02 Troponin, BNP 06/22/17 06/22/17 06/23/17 16:26 20:47 02:25 Troponin I < 0.02 < 0.02 < 0.02 Assessment/Plan 71-year-old man with a history of hypertension, hyperlipidemia, hepatitis C, throat cancer, stroke, now presenting with new chest pains. There is no CHF. There is no evidence of ischemia nor acute coronary syndrome. The patient is stable. CTA of the chest showed no evidence of pulmonary emboli. It did show significant coronary calcifications. Please continue present regimen. Please arrange for an echocardiogram. Please arrange for a pharmacological nuclear stress test. No need for further cardiac workup at this point. We will follow results. The patient is stable.
[2017-06-23] MEDS ORDERED: PT OWN MED DRAWER 7, Y5N ONE (13:49)
[2017-06-23] MEDS ORDERED: FENTANYL PATCH WASTE TD PRN (19:01)
--- NOTE | 2017-06-23 19:04 | PN ---
Physical Exam: SUBJECTIVE: Patient seen and examined patient feels better no further chest pain. states that his chest pain due to his anxiety. OBJECTIVE: Vital Signs Temperature 98.1 F 06/23/17 18:30 Pulse Rate 59 L 06/23/17 18:30 Respiratory Rate 18 06/23/17 18:30 Blood Pressure 138/61 06/23/17 18:30 O2 Sat by Pulse Oximetry (%) 98 06/23/17 17:00 GENERAL: The patient is awake, alert, and fully oriented, in no acute distress. HEAD: Normal with no signs of trauma. EYES: PERRL, extraocular movements intact, sclera anicteric, conjunctiva clear. No ptosis. ENT: Ears normal, nares patent, oropharynx clear without exudates, moist mucous membranes. NECK: Trachea midline, full range of motion, supple. LUNGS: Breath sounds equal, clear to auscultation bilaterally, no wheezes, no crackles, no accessory muscle use. HEART: Regular rate and rhythm, S1, S2 without murmur, rub or gallop. ABDOMEN: Soft, nontender, nondistended, normoactive bowel sounds, no guarding, no rebound, no hepatosplenomegaly, no masses. EXTREMITIES: 2+ pulses, warm, well-perfused, no edema. NEUROLOGICAL: Cranial nerves II through XII grossly intact. Normal speech, gait not observed. PSYCH: Normal mood, normal affect. SKIN: Warm, dry, normal turgor, no rashes or lesions noted CBCD WBC 2.3 K/mm3 (4.0-10.0) L D 06/23/17 06:00 RBC 4.06 M/mm3 (4.00-5.60) 06/23/17 06:00 Hgb 12.6 GM/dL (11.7-16.9) 06/23/17 06:00 Hct 36.0 % (35.4-49) 06/23/17 06:00 MCV 88.5 fl (80-96) 06/23/17 06:00 MCHC 34.9 g/dl (32.0-35.9) 06/23/17 06:00 RDW 15.2 % (11.9-15.9) 06/23/17 06:00 Plt Count 136 K/MM3 (134-434) D 06/23/17 06:00 MPV 8.0 fl (7.5-11.1) 06/23/17 06:00 CMP Sodium 135 mmol/L (136-145) L 06/23/17 06:00 Potassium 3.9 mmol/L (3.5-5.1) 06/23/17 06:00 Chloride 101 mmol/L (98-107) 06/23/17 06:00 Carbon Dioxide 31 mmol/L (21-32) 06/23/17 06:00 Anion Gap 3 (8-16) L 06/23/17 06:00 BUN 9 mg/dL (7-18) 06/23/17 06:00 Creatinine 0.7 mg/dL (0.7-1.3) 06/23/17 06:00 Creat Clearance w eGFR > 60 (>60) 06/22/17 16:26 Random Glucose 93 mg/dL (74-106) 06/23/17 06:00 Calcium 8.5 mg/dL (8.5-10.1) 06/23/17 06:00 Total Bilirubin 0.3 mg/dL (0.2-1.0) D 06/22/17 16:26 AST 9 U/L (15-37) L D 06/22/17 16:26 ALT 12 U/L (12-78) 06/22/17 16:26 Alkaline Phosphatase 88 U/L (45-117) D 06/22/17 16:26 Total Protein 7.2 g/dl (6.4-8.2) D 06/22/17 16:26 Albumin 3.9 g/dl (3.4-5.0) D 06/22/17 16:26 CARDIAC ENZYMES Creatine Kinase 39 IU/L (39-308) 06/23/17 02:25 Troponin I < 0.02 ng/ml (0.00-0.05) 06/23/17 02:25 Current Medications Generic Name Dose Route Start Last Admin Trade Name Freq PRN Reason Stop Dose Admin Alprazolam 0.25 mg 06/23/17 19:03 Xanax - PO 06/23/17 19:04 ONCE ONE Aspirin 81 mg 06/23/17 10:00 06/23/17 09:22 Asa - PO 81 mg DAILY CAYLA Administration Atorvastatin Calcium 20 mg 06/23/17 22:00 Lipitor - PO HS CAYLA Clopidogrel Bisulfate 75 mg 06/23/17 10:00 06/23/17 09:22 Plavix - PO 75 mg DAILY ON LICENSE OF [facility] Administration Docusate Sodium 300 mg 06/23/17 22:00 Colace - PO HS ON LICENSE OF [facility] Fentanyl 1 patch 06/23/17 19:15 Duragesic 12mcg Patch - TD 06/30/17 19:01 Q48H ON LICENSE OF [facility] Folic Acid 1 mg 06/23/17 10:00 06/23/17 09:22 Folic Acid - PO 1 mg DAILY CAYLA Administration Gabapentin 900 mg 06/23/17 10:00 06/23/17 17:11 Neurontin - PO 900 mg QID ON LICENSE OF [facility] Administration Miscellaneous 1 each 06/23/17 19:[address] [facility] PRN PRN PAIN Nicotine 21 mg 06/23/17 10:00 06/23/17 13:54 Nicoderm Patch - TD 21 mg DAILY ON LICENSE OF [facility] Administration Sertraline HCl 50 mg 06/23/17 10:00 06/23/17 09:22 Zoloft - PO 50 mg DAILY ON LICENSE OF [facility] Administration Tamsulosin HCl 0.4 mg 06/23/17 08:30 06/23/17 09:22 Flomax - PO 0.4 mg DAILY@0830 ON LICENSE OF [facility] Administration Home Medications Medication Instructions Recorded Gabapentin [Neurontin] 900 mg PO QID 03/03/14 Clopidogrel Bisulfate [Plavix -] 75 mg PO DAILY 07/26/16 Sertraline HCl [Zoloft -] 50 mg PO DAILY 07/26/16 Tamsulosin HCl [Flomax] 0.4 mg PO DAILY 07/26/16 Fentanyl 12 mcg TD Q27H 07/29/16 Folic Acid 1 mg PO DAILY 07/29/16 Miscellaneous Medical Supply 1 each ASDIR #1 [facility] [place] 07/29/16 [Outpatient Order] Simvastatin 40 mg PO HS 07/29/16 Urine Test Results Urine Color Yellow 06/22/17 17:15 Urine Appearance Slcloudy 06/22/17 17:15 Urine pH 5.0 (5.0-8.0) 06/22/17 17:15 Ur Specific [place] 1.016 (1.001-1.035) 06/22/17 17:15 Urine Protein Negative (NEGATIVE) 06/22/17 17:15 Urine Glucose (UA) Negative (NEGATIVE) 06/22/17 17:15 Urine Ketones Negative (NEGATIVE) 06/22/17 17:15 Urine Blood 3+ (NEGATIVE) H 06/22/17 17:15 Urine Nitrite Negative (NEGATIVE) 06/22/17 17:15 Urine Bilirubin Negative (<2.0 mg/dL) 06/22/17 17:15 Ur Leukocyte Esterase Negative (NEGATIVE) 06/22/17 17:15 Ur Epithelial Cells Rare /HPF (FEW) 06/22/17 17:15 Urine Mucus Rare 06/22/17 17:15 A/P: This is a 71 y/o man with a PMHx of: Throat Ca (RT), HTN, HLD, Bipolar Disorder , BPH, CVA, Hep C (treated 11 yrs ago, inj). Placed on Tele Observation for Atypical Chest Pain r/o ACS # Atypical CP- r/o ACS, Ce negative so far . echo & stress test as per cardio request # Hematuria- UA +3 blood, +RBCs, r/o Neoplasm, Renal US pending #Throat Ca- s/p RTx 6 months ago . on fentany patch q48h due to esophageal pain. # Hypertension- Stable, continue home meds. # HLD- Stable, Continue home med. # Hx of CVA: Fall Precautions, continue home meds # Neuropathic Pain Syndrome- continue neurontin # BPH- Continue Flomax # Bipolar Disorder- continue Zoloft # hx of Hep C- Stable, completed treatments DVT ppx- SCDs, Code Status: Full Code Tele Observation Visit type - Emergency Visit Emergency Visit: Yes ED Registration Date: 06/23/17 Care time: The patient presented to the Emergency Department on the above date and was hospitalized for further evaluation of their emergent condition. - New Patient This patient is new to me today: Yes Date on this admission: 06/24/17 - Critical Care Critical Care patient: No - Discharge Referral Referred to [facility] Med P.C.: No
[2017-06-23] MEDS ORDERED: fentaNYL 12mcg/hr PATCH.TD72 TD SCH (19:30)
[2017-06-23] MEDS ORDERED: ALPRAZolam 0.25 MG TABLET PO ONE (19:30)
[2017-06-23] MEDS: ATORVASTATIN CA 20 MG TABLET (FP) PO SCH (21:28)
[2017-06-23] MEDS: DOCUSATE SODIUM 100 MG CAPSULE (FP) PO SCH (21:28)
[2017-06-24] MEDS: NICOTINE 21 MG/24 HOURS TOPICAL PATCH TD SCH (09:04)
[2017-06-24] MEDS: GABAPENTIN 300 MG CAPSULE (FP) PO SCH ×4 (09:04→22:14)
[2017-06-24] MEDS: FOLIC ACID 1 MG TABLET (FP) PO SCH (09:04)
[2017-06-24] MEDS: CLOPIDOGREL BISULFATE 75 MG TABLET (FP) PO SCH (09:04)
[2017-06-24] MEDS: TAMSULOSIN HCL 0.4 MG CAP.ER.24H (FP) PO SCH (09:04)
[2017-06-24] MEDS: ASPIRIN 81 MG CHEWABLE TABLETS PO SCH (09:04)
[2017-06-24] MEDS: SERTRALINE HCL 50 MG TABLET (FP) PO SCH (09:04)
[2017-06-24] MEDS: ACETAMINOPHEN 325 MG TABLET (FP) PO PRN (13:02)
--- NOTE | 2017-06-24 16:19 | EKG ---
Test Reason : Blood Pressure : / mmHG Vent. Rate : 070 BPM Atrial Rate : 070 BPM P-R Int : 170 ms QRS Dur : 090 ms QT Int : 366 ms P-R-T Axes : 054 072 068 degrees QTc Int : 395 ms NORMAL SINUS RHYTHM NORMAL ECG WHEN COMPARED WITH ECG OF 24-DEC-2016 08:25, NO SIGNIFICANT CHANGE WAS FOUND Confirmed by MD CONN MOYSES ([id number]) on 06/24/2017 4:18:59 PM Referred By: Confirmed By:KEVAN CONN MD
--- NOTE | 2017-06-24 16:55 | PN ---
<Kelsy Chau - Last Filed: 06/24/17 16:49> Physical Exam: SUBJECTIVE: Patient seen and examined, no chest pain , sob. C/o left shoulder pain. OBJECTIVE: Vital Signs Period Temp Pulse Resp BP Sys/Najera Pulse Ox Last 24 Hr 97.7 F-99.1 F 59-78 18-18 115-138/58-73 98-99 GENERAL: The patient is frail, awake, alert, and fully oriented, in no acute distress. LUNGS: Breath sounds equal, clear to auscultation bilaterally, no wheezes, no crackles, no accessory muscle use. HEART: Regular rate and rhythm, S1, S2 without murmur, rub or gallop. ABDOMEN: Soft, nontender, nondistended, normoactive bowel sounds, no guarding, no rebound, no hepatosplenomegaly, no masses. EXTREMITIES: 2+ pulses, warm, well-perfused, no edema. NEUROLOGICAL: Cranial nerves II through XII grossly intact. Normal speech, gait unsteady; uses cane Active Medications Generic Name Dose Route Start Last Admin Trade Name Freq PRN Reason Stop Dose Admin Acetaminophen 650 mg 06/24/17 12:46 06/24/17 13:02 Tylenol - PO 650 mg Q4H PRN Administration PAIN LEVEL 4 - 6 Aspirin 81 mg 06/23/17 10:00 06/24/17 09:04 Asa - PO 81 mg DAILY CAYLA Administration Atorvastatin Calcium 20 mg 06/23/17 22:00 06/23/17 21:28 Lipitor - PO 20 mg HS CAYLA Administration Clopidogrel Bisulfate 75 mg 06/23/17 10:00 06/24/17 09:04 Plavix - PO 75 mg DAILY CAYLA Administration Docusate Sodium 300 mg 06/23/17 22:00 06/23/17 21:28 Colace - PO 300 mg HS CAYLA Administration Fentanyl 1 patch 06/23/17 19:30 06/23/17 19:58 Duragesic 12mcg Patch - TD 06/30/17 19:29 1 patch Q48H CAYLA Administration Folic Acid 1 mg 06/23/17 10:00 06/24/17 09:04 Folic Acid - PO 1 mg DAILY CAYLA Administration Gabapentin 900 mg 06/23/17 10:00 06/24/17 13:29 Neurontin - PO 900 mg QID CAYLA Administration Miscellaneous 1 each 06/23/17 19:01 Duragesic Patch Waste TD PRN PRN PAIN Nicotine 21 mg 06/23/17 10:00 06/24/17 09:04 Nicoderm Patch - TD 21 mg DAILY CAYLA Administration Sertraline HCl 50 mg 06/23/17 10:00 06/24/17 09:04 Zoloft - PO 50 mg DAILY CAYLA Administration Tamsulosin HCl 0.4 mg 06/23/17 08:30 06/24/17 09:04 Flomax - PO 0.4 mg DAILY@0830 CAYLA Administration ASSESSMENT/PLAN: This is a 71 year old male with a past medical history of throat Ca s/p RT, hypertension, hld, bipolar, CVA, hx of hep C treated, presented with chest pain , rule out ACS. #atypical chest pain r/o acs -pvc monitor tele -echo and stress test in am -cardio consulted #miscroscopic hematuria: r/o neoplasm; may be sec to BPH -UA +RBCs; rn -renal US negative for acute pathology; -order bladder US -repeat UA -follow H/H #left shoulder pain: most likely mild arthritis -xray wnl -pain control with Tylenol #htn: stable; cont home meds #BPH; cont flomax #hx of CVA: -cont asa -fall precautions -use cane #hx of throat CA:s/p RT -on fentaly patch #neuropathic pain syndrome: cont neurontin #bipolar disorder: cont zoloft DVT: pplx: scds Disposition: monitor cardiac tele; stress test in am ; Visit type - Emergency Visit Emergency Visit: Yes ED Registration Date: 06/23/17 Care time: The patient presented to the Emergency Department on the above date and was hospitalized for further evaluation of their emergent condition. - New Patient This patient is new to me today: Yes Date on this admission: 06/24/17 - Critical Care Critical Care patient: No <Laurence York - Last Filed: 06/24/17 19:53> Physical Exam: agree wth the resident's note. ordered echo and stress test. also bladder us for possible neoplasm. further w/u as an outpatient. lso c/o having left shoulder pain, will get orhto to see him, xray is neg.
[2017-06-24] MEDS: DOCUSATE SODIUM 100 MG CAPSULE (FP) PO SCH (22:13)
[2017-06-24] MEDS: ATORVASTATIN CA 20 MG TABLET (FP) PO SCH (22:14)
[2017-06-25] MEDS: GABAPENTIN 300 MG CAPSULE (FP) PO SCH ×3 (05:08→17:06)
[2017-06-25 07:13] LABS: HEMATOCRIT 36.9 % (35.4-49); HEMOGLOBIN 12.6 GM/dL (11.7-16.9); MCH 30.5 pg (25.7-33.7); MCHC 34.3 g/dl (32.0-35.9); MEAN CELL VOLUME 89.1 fl (80-96); MEAN PLT VOLUME 8.1 fl (7.5-11.1); PLATELET COUNT 135 K/MM3 (134-434); RBC 4.14 M/mm3 (4.00-5.60); RDW 15.4 % (11.9-15.9); WHITE BLOOD COUNT 3.5 K/mm3 (4.0-10.0)
[2017-06-25 07:57] LABS: ANION GAP 5 (8-16); BLOOD UREA NITROGEN 8 mg/dL (7-18); CHLORIDE 104 mmol/L (98-107); CO2 29 mmol/L (21-32); CREATININE 0.6 mg/dL (0.7-1.3); GLUCOSE,RANDOM 100 mg/dL (74-106); POTASSIUM 4.2 mmol/L (3.5-5.1); SODIUM 138 mmol/L (136-145)
[2017-06-25] MEDS: TAMSULOSIN HCL 0.4 MG CAP.ER.24H (FP) PO SCH (09:00)
[2017-06-25] MEDS ORDERED: REGADENOSON 0.4 MG/5 ML PRE-FILLED SYRINGE IVPUSH ONE ×2 (11:00→11:43)
[2017-06-25 11:24] VITALS: TEMP 98.1
[2017-06-25] MEDS: CLOPIDOGREL BISULFATE 75 MG TABLET (FP) PO SCH (14:22)
[2017-06-25] MEDS: ASPIRIN 81 MG CHEWABLE TABLETS PO SCH (14:22)
[2017-06-25] MEDS: FOLIC ACID 1 MG TABLET (FP) PO SCH (14:22)
[2017-06-25] MEDS: SERTRALINE HCL 50 MG TABLET (FP) PO SCH (14:22)
[2017-06-25] MEDS: NICOTINE 21 MG/24 HOURS TOPICAL PATCH TD SCH (14:23)
--- NOTE | 2017-06-25 14:27 | PN ---
Progress Note, Physician Chief Complaint: left shoulder pain tele neg History of Present Illness: The patient is a 71-year-old man, with a history of hypertension, hyperlipidemia , stroke, hepatitis C, throat cancer, status post radiation therapy, now admitted with chest pains. The patient reports left upper shoulder and chest pressure and discomfort on minimal leftward. The symptoms are relatively new. He admits to a sedentary lifestyle. Does not walk any significant distances. The patient is currently comfortable and symptom free. He ruled out for myocardial infarction. There is no CHF. There is no evidence of pulmonary emboli on CTA. Nuclear Stress Test 06/25/17 fixed inferobasal defect c/w diaphragmatic attenuation artifact. echo 06/25/17 normal EF unremarkable valves. - Current Medication List Current Medications: Active Medications Acetaminophen (Tylenol -) 650 mg PO Q4H PRN PRN Reason: PAIN LEVEL 4 - 6 Last Admin: 06/24/17 13:02 Dose: 650 mg Aspirin (Asa -) 81 mg PO DAILY [facility] Last Admin: 06/24/17 09:04 Dose: 81 mg Atorvastatin Calcium (Lipitor -) 20 mg PO [facility] Last Admin: 06/24/17 22:14 Dose: 20 mg Clopidogrel Bisulfate (Plavix -) 75 mg PO DAILY [facility] Last Admin: 06/24/17 09:04 Dose: 75 mg Docusate Sodium (Colace -) 300 mg PO [facility] Last Admin: 06/24/17 22:13 Dose: 300 mg Fentanyl (Duragesic 12mcg Patch -) 1 patch TD Q48H [facility] Stop: 06/30/17 19:29 Last Admin: 06/23/17 19:58 Dose: 1 patch Folic Acid (Folic Acid -) 1 mg PO DAILY [facility] Last Admin: 06/24/17 09:04 Dose: 1 mg Gabapentin (Neurontin -) 900 mg PO Q6HPO [facility] Last Admin: 06/25/17 05:08 Dose: 900 mg Miscellaneous (Duragesic Patch Waste) 1 each TD PRN PRN PRN Reason: PAIN Nicotine (Nicoderm Patch -) 21 mg TD DAILY [facility] Last Admin: 06/24/17 09:04 Dose: 21 mg Sertraline HCl (Zoloft -) 50 mg PO DAILY [facility] Last Admin: 06/24/17 09:04 Dose: 50 mg Tamsulosin HCl (Flomax -) 0.4 mg PO DAILY@0830 [facility] Last Admin: 06/25/17 09:00 Dose: Not Given - Objective Vital Signs: Vital Signs Temperature 98.1 F 06/25/17 10:00 Pulse Rate 84 06/25/17 10:00 Respiratory Rate 20 06/25/17 10:00 Blood Pressure 162/80 06/25/17 10:00 O2 Sat by Pulse Oximetry (%) 96 06/25/17 10:00 Constitutional: Yes: Well Nourished, No Distress Eyes: Yes: Conjunctiva Clear, EOM Intact HENT: Yes: Normocephalic Neck: Yes: Trachea Midline Cardiovascular: Yes: Regular Rate and Rhythm Respiratory: Yes: CTA Bilaterally Gastrointestinal: Yes: Normal Bowel Sounds, Soft Musculoskeletal: Yes: WNL Extremities: Yes: WNL Edema: No Peripheral Pulses WNL: Yes Labs: CBC, BMP 06/25/17 06:42 06/25/17 06:42 INR, PTT INR 1.05 (0.82-1.09) 06/22/17 16:26 Problem List - Problems (1) Chest pain Assessment/Plan: His pain is likely musculoskeletal. No evidence of symptomatic CAD. No need for further cardiac testing. Will see as needed. Code(s): R07.9 - CHEST PAIN, UNSPECIFIED Qualifiers: Chest pain type: unspecified Qualified Code(s): R07.9 - Chest pain, unspecified
[2017-06-25 14:40] VITALS: BP 135/81; PULSE 64
--- NOTE | 2017-06-25 15:38 | DS ---
Physical Exam: Patient is comfrotable with no acute distress, stress test is negative, patient will follow with cardologist, orthopedic for his shoulder. <Laurence York - Last Filed: 06/25/17 16:48> Physical Exam: SUBJECTIVE: Patient seen and examined at bedside. No new complaints. no episodes of chest pain overnight. OBJECTIVE: Vital Signs Period Temp Pulse Resp BP Sys/Najera Pulse Ox Last 24 Hr 98.1 F-98.4 F 64-84 16-20 113-162/61-84 96-99 PHYSICAL EXAM GENERAL: The patient is awake, alert, and fully oriented, in no acute distress. NECK: Trachea midline, full range of motion, supple. LUNGS: Breath sounds equal, clear to auscultation bilaterally, no wheezes, no crackles, no accessory muscle use. HEART: Regular rate and rhythm, S1, S2 without murmur, rub or gallop. ABDOMEN: Soft, nontender, nondistended, normoactive bowel sounds, no guarding, no rebound, no hepatosplenomegaly, no masses. EXTREMITIES: 2+ pulses, warm, well-perfused, no edema. NEUROLOGICAL: Cranial nerves II through X grossly intact. Normal speech, gait not observed. PSYCH: Normal mood, normal affect. SKIN: Warm, dry, normal turgor, no rashes or lesions noted. LABS Laboratory Results - last 24 hr 06/25/17 06/25/17 06:42 06:42 WBC 3.5 L D RBC 4.14 Hgb 12.6 Hct 36.9 MCV 89.1 MCH 30.5 MCHC 34.3 RDW 15.4 Plt Count 135 MPV 8.1 Sodium 138 Potassium 4.2 Chloride 104 Carbon Dioxide 29 Anion Gap 5 L BUN 8 Creatinine 0.6 L Random Glucose 100 Calcium 9.0 HOSPITAL COURSE: Date of Admission:06/23/17 The patient is a 71 yo m w/ PMH throat Ca s/p RT, CVA, HTN, HLD, bipolar disorder and Hep C who came into the ED c/o chest pressure for two days prior to admission. The pain was intermittent, sharp and radiated to the jaw, neck and shoulder. The patient also noted chronic left shoulder pain. In the ED, a chest Xray was negative for acute process. A CTA of the chest showed no evidence of PE, but did reveal atherosclerosis of the coronary arteries as well as pulmonary nodules, liver cirrhosis and an adrenal incidenaloma. A urinalysis revealed microscopic hematuria. An ultrasound of the kidney showed no abnormalities. A bladder US showed no abnormalities. The patient was admitted to rule out ACS as a cause of his chest pain. Cardiology was consulted. An echo was WNL. A nuclear stress test showed fixed inferobasal defect c/w diaphragmatic attenuation artifact. The patient's symptoms did not recur during his admission. Troponins were negative x3. The patient was discharged home with instructions to follow up with his PCP within 1 week as well as a director supply chain within 2 weeks of going home. Date of Discharge: 06/25/17 Minutes to complete discharge: 56 <Sawyer Velazco - Last Filed: 06/25/17 22:07> Discharge Summary Current Active Problems BPH (benign prostatic hyperplasia) (Acute) Bipolar disorder (Acute) Chest pain (Acute) DVT prophylaxis (Acute) Hematuria (Acute) - Home Medications Comprehensive Discharge Medication List: Ambulatory Orders Gabapentin [Neurontin] 900 mg PO QID 03/03/14 Clopidogrel Bisulfate [Plavix -] 75 mg PO DAILY 07/26/16 Sertraline HCl [Zoloft -] 50 mg PO DAILY 07/26/16 Tamsulosin HCl [Flomax] 0.4 mg PO DAILY 07/26/16 Fentanyl 12 mcg TD Q27H 07/29/16 Folic Acid 1 mg PO DAILY 07/29/16 Miscellaneous Medical Supply [Outpatient Order] 1 each ASDIR #1 mis Simvastatin 40 mg PO HS 07/29/16 <Laurence York - Last Filed: 06/25/17 16:48> Reason For Visit: CHEST PAIN Current Active Problems BPH (benign prostatic hyperplasia) (Acute) Bipolar disorder (Acute) Chest pain (Acute) DVT prophylaxis (Acute) Hematuria (Acute) - Home Medications Comprehensive Discharge Medication List: Ambulatory Orders Gabapentin [Neurontin] 900 mg PO QID 03/03/14 Clopidogrel Bisulfate [Plavix -] 75 mg PO DAILY 07/26/16 Sertraline HCl [Zoloft -] 50 mg PO DAILY 07/26/16 Tamsulosin HCl [Flomax] 0.4 mg PO DAILY 07/26/16 Fentanyl 12 mcg TD Q27H 07/29/16 Folic Acid 1 mg PO DAILY 07/29/16 Miscellaneous Medical Supply [Outpatient Order] 1 each ASDIR #1 misc Simvastatin 40 mg PO HS 07/29/16 <Sawyer Velazco - Last Filed: 06/25/17 22:07> Condition: Improved - Instructions Diet, Activity, Other Instructions: You were admitted for the workup of your chest pain. Your heart tests showed no problems. You should resume taking your home medications starting tomorrow. You should follow up with your primary care physician within one week of going home. You should also follow up with a director supply chain within 2 weeks of going home. Information for Dr. Sousa (who saw you during your stay) has been included in your discharge papers. Please call to make an appointment. If you begin to experience chest pain, SOB or if any of your symptoms get worse , please call your doctor or return to the emergency department. Referrals: David Sousa MD [Staff Physician] - 2 Weeks Armando Nuñez [Primary Care Provider] - 1 Week Disposition: HOME This patient is new to me today: Yes Date on this admission: 06/25/17 Emergency Visit: Yes ED Registration Date: 06/23/17 Care time: The patient presented to the Emergency Department on the above date and was hospitalized for further evaluation of their emergent condition. Critical Care patient: No - Discharge Referral Referred to [facility] Med P.C.: No <Sawyer Velazco - Last Filed: 06/25/17 22:07>
[2017-06-25] MEDS: ACETAMINOPHEN 325 MG TABLET (FP) PO PRN (17:07)
== END 2017-06-25 17:28 | disposition home or self-care (01) ==
LOC: JER 15:54 → JERBED 06-23 01:46 → UNDOADMOB 06-23 01:56 → J4S 06-23 02:55
PROVIDERS: ADMIT Internal Medicine; ATTEND Internal Medicine
PROC: 3E0333Z Introduction of Anti-inflammatory into Peripheral Vein, Percutaneous Approach (ICD-10-PCS; principal; 2017-06-23)
PROC: 3E033NZ Introduction of Analgesics, Hypnotics, Sedatives into Peripheral Vein, Percutaneous Approach (ICD-10-PCS; 2017-06-23)
PROC: 3E033GC Introduction of Other Therapeutic Substance into Peripheral Vein, Percutaneous Approach (ICD-10-PCS; 2017-06-23)
DX: R07.9 Chest pain, unspecified (principal); I10 Essential (primary) hypertension; E78.5 Hyperlipidemia, unspecified; G89.4 Chronic pain syndrome; B18.2 Chronic viral hepatitis C; N40.0 Benign prostatic hyperplasia without lower urinary tract symptoms; R31.9 Hematuria, unspecified; F31.9 Bipolar disorder, unspecified; Z86.73 Personal history of transient ischemic attack (TIA), and cerebral infarction without residual deficits; Z87.891 Personal history of nicotine dependence; Z85.818 Personal history of malignant neoplasm of other sites of lip, oral cavity, and pharynx; Z92.3 Personal history of irradiation
CPT/HCPCS: 36415; 71046-TC-FY; 71275-TC; 73030-TC-LT-FY; 76775-TC; 76856-TC; 78452-TC; 80048; 80053; 81003; 81015; 82550; 83735; 84100; 84484; 85025; 85027; 85610; 93005; 93010; 93017; 93306-TC; 96374; 96375; 96376; 99285-25; A9502; G0378; J2785

== ENCOUNTER 2018-05-09 19:28 | Emergency (ER) | payer OTHER ==
[2018-05-09 19:36] VITALS: BP 123/67; PULSE 62; TEMP 98.6; BMI 18.6
--- NOTE | 2018-05-09 19:41 | PDOC ---
Rapid Medical Evaluation Chief Complaint: Pain Time Seen by Provider: 05/09/18 19:37 Medical Evaluation: Allergies Allergy/AdvReac Type Severity Reaction Status Date / Time No Known Allergies Allergy Verified 05/09/18 19:36 Vital Signs Temp Pulse Resp BP Pulse Ox 98.6 F 62 18 123/67 100 05/09/18 19:31 05/09/18 19:31 05/09/18 19:31 05/09/18 19:31 05/09/18 19:31 05/09/18 19:37 I have performed a brief in-person evaluation of this patient. The patient presents with a chief complaint of: posterior upper back pain radiating up to neck and right UE which has been worsening in the last 2 days. report had similar episode a year ago and had injection to the spine which helped with the pain. Pt report calling his pain management doctor but cannot see him for another week Pertinent physical exam findings: A)O x 3. mild tenderness over b/l paravertebral of posterior thoracic spine. I have ordered the following: nothing The patient will proceed to the ED for further evaluation. Discharge Disposition - Diagnosis Neuropathic pain - Referrals - Patient Instructions - Post Discharge Activity
--- NOTE | 2018-05-09 19:58 | PDOC ---
History of Present Illness - General Chief Complaint: Pain Stated Complaint: Generalise pain Time Seen by Provider: 05/09/18 19:37 History Source: Patient Exam Limitations: No Limitations - History of Present Illness Initial Comments: 05/09/18 19:58 CHIEF COMPLAINT: Back pain HISTORY OF PRESENT ILLNESS: This is a 72-year-old male with a history of CVA with residual left-sided weakness and chronic pain syndrome followed by Dr. Pleitez of pain management ([facility]), throat ca s/p RT, HTN, HLD, bipolar disorder, and Hep C who presents ambulatory to the ER accompanied by his daughter for evaluation of back pain. The patient reports that he has a pinching -like pain in his upper back which radiates down the right arm causing some numbness. He denies weakness, incontinence, or any lower extremity symptoms. He has had pain like this in the past reports having imaging last June (unable to recall which imaging tests, but states they were negative). He is on a 75 g per hour fentanyl patch for his chronic pain. He has not taken any medications for breakthrough pain. Vital signs on arrival are unremarkable. REVIEW OF SYSTEMS: GENERAL/CONSTITUTIONAL: No fever or chills. No weakness. No weight change. HEAD, EYES, EARS, NOSE AND THROAT: No change in vision. No ear pain or discharge. No sore throat. CARDIOVASCULAR: No chest pain or palpitations. RESPIRATORY: No cough, wheezing, or shortness of breath. GASTROINTESTINAL: No nausea, vomiting, diarrhea or constipation. GENITOURINARY: No dysuria, frequency, or change in urination. MUSCULOSKELETAL: See HPI. SKIN: No rash or easy bruising. NEUROLOGIC: No headache, vertigo, or loss of consciousness. Intermittent numbness to thumb and second finger of right hand. PSYCHIATRIC: History of bipolar disorder. ENDOCRINE: No increased thirst. No abnormal weight change. HEMATOLOGIC/LYMPHATIC: No anemia, easy bleeding, or history of blood clots. ALLERGIC/IMMUNOLOGIC: No hives or skin allergy. No latex allergy. PHYSICAL EXAM: GENERAL: The patient is awake, alert, and fully oriented, in no acute distress. HEAD: Normal with no signs of trauma. ENT: Pupils equal, round and reactive to light, extraocular movements intact, sclera anicteric, conjunctiva clear. Neck supple. LUNGS: Clear to auscultation bilaterally. Normal excursion. No respiratory distress or use of accessory muscles. CV: RRR, S1/S2, no MRG. Cap refill < 2 sec. ABDOMEN: Soft, non-distended, non-tender. EXTREMITIES: Normal range of motion, no edema. NEUROLOGICAL: Normal speech, normal gait. CN II-XII grossly intact. Normal strength and sensation. No saddle anesthesia. Midline vertebral tenderness T2/3. PSYCH: Normal mood, normal affect. SKIN: Warm, dry, normal turgor, no rashes or lesions noted. Past History - Past Medical History Allergies/Adverse Reactions: Allergies Allergy/AdvReac Type Severity Reaction Status Date / Time No Known Allergies Allergy Verified 05/09/18 19:36 Home Medications: Ambulatory Orders Gabapentin [Neurontin] 900 mg PO QID 03/03/14 Clopidogrel Bisulfate [Plavix -] 75 mg PO DAILY 07/26/16 Sertraline HCl [Zoloft -] 50 mg PO DAILY 07/26/16 Tamsulosin HCl [Flomax] 0.4 mg PO DAILY 07/26/16 Fentanyl 12 mcg TD Q27H 07/29/16 Folic Acid 1 mg PO DAILY 07/29/16 Miscellaneous Medical Supply [Outpatient Order] 1 each ASDIR #1 misc Simvastatin 40 mg PO HS 07/29/16 Lidocaine 5% Patch [Lidoderm Patch -] 1 patch TP DAILY #7 patch 05/09/18 oxyCODONE HCL [Roxicodone -] 1 - 2 tab PO Q6H PRN #20 tablet MDD 8 tabs Cancer: Yes (throat) Cardiac Disorders: Yes CVA: Yes COPD: No GI Disorders: Yes (ulcers) HTN: Yes Hypercholesterolemia: Yes Psychiatric Problems: Yes (DEPRESSION) - Surgical History Abdominal Surgery: Yes (STOMACH EXCISION DUE TO ULCER) Appendectomy: Yes - Suicide/Smoking/Psychosocial Hx Smoking History: Current every day smoker Have you smoked in the past 12 months: Yes Number of Cigarettes Smoked Daily: 10 If you are a former smoker, when did you quit?: 08/09 Information on smoking cessation initiated: No 'Breaking Loose' booklet given: 06/22/17 Hx Alcohol Use: No Drug/Substance Use Hx: No Substance Use Type: None *Physical Exam - Vital Signs Last Vital Signs Temp Pulse Resp BP Pulse Ox 98.6 F 62 18 123/67 100 05/09/18 19:31 05/09/18 19:31 05/09/18 19:31 05/09/18 19:31 05/09/18 19:31 Moderate Sedation - Procedure Monitoring Vital Signs: Procedure Monitoring Vital Signs Temperature 98.6 F 05/09/18 19:31 Pulse Rate 62 05/09/18 19:31 Respiratory Rate 18 05/09/18 19:31 Blood Pressure 123/67 05/09/18 19:31 O2 Sat by Pulse Oximetry (%) 100 05/09/18 19:31 Medical Decision Making - Medical Decision Making 05/09/18 20:12 A/P: 72-year-old male with chronic pain presenting with thoracic back pain associated with intermittent, partial right hand numbness. 1. Toradol 30 mg IM for pain 2. Thoracic spine CT given neurologic symptoms and history of cancer 3. Patient has pain management follow-up appointment in 1 week 05/09/18 21:18 CT reviewed: no evidence of fracture or neoplastic disease in the thoracic spine. Nonpathologic L1 compression fracture (patient was aware of this). Patient continues to have 10/10 pain; will give oxycodone and lidoderm patch. *DC/Admit/Observation/Transfer Diagnosis at time of Disposition: Thoracic back pain Qualifiers: Chronicity: acute Back pain laterality: midline Qualified Code(s): M54.6 - Pain in thoracic spine - Discharge Dispostion Disposition: HOME Condition at time of disposition: Stable Decision to Admit order: No - Prescriptions Prescriptions: Lidocaine 5% Patch [Lidoderm Patch -] 1 patch TP DAILY #7 patch oxyCODONE HCL [Roxicodone -] 1 - 2 tab PO Q6H PRN #20 tablet MDD 8 tabs PRN Reason: Pain - Referrals Referrals: Hank Medrano DO [Staff Physician] - Call tomorrow (Orthopedics) - Patient Instructions Printed Discharge Instructions: DI for Thoracic Back Pain Additional Instructions: -Rest and apply lidoderm patches as prescribed to the painful area -Continue your pain regimen and add oxycodone as prescribed for breakthrough pain -Be sure to continue taking stool softeners -Follow up with your pain management doctor as scheduled and call your orthopedist or ours (referral enclosed) for an appointment) -Return for worsening pain/numbness or any other concerning symptoms - Post Discharge Activity
[2018-05-09] MEDS ORDERED: KETOROLAC TROMETHAMINE 30 MG/1 ML VIAL IM ONE (20:06)
[2018-05-09] MEDS ORDERED: KETOROLAC TROMETHAMINE 30 MG/1 ML VIAL ONE (20:09)
[2018-05-09] MEDS ORDERED: LIDOCAINE 5% TOPICAL PATCH TP ONE (21:17)
[2018-05-09] MEDS ORDERED: oxyCODONE HCL 5 MG TABLET PO ONE (21:17)
[2018-05-09] MEDS ORDERED: LIDOCAINE 5% TOPICAL PATCH ONE (21:23)
[2018-05-09] MEDS ORDERED: oxyCODONE HCL 5 MG TABLET ONE (21:27)
[2018-05-09] MEDS ORDERED: LIDOCAINE PATCH REMOVAL MC SCH (22:00)
== END 2018-05-09 21:42 | disposition home or self-care (01) ==
LOC: JERFT 19:28
PROC: 3E0233Z Introduction of Anti-inflammatory into Muscle, Percutaneous Approach (ICD-10-PCS; principal; 2018-05-09)
DX: G58.8 Other specified mononeuropathies (principal)
CPT/HCPCS: 72128-TC; 99281-25

== ENCOUNTER 2018-05-16 10:12 | Emergency (ER) | payer OTHER ==
[2018-05-16 10:37] VITALS: TEMP 98.4; BMI 18.6
[2018-05-16 11:26] LABS: BASO % 0.7 % (0-2.0); EOS % 0.2 % (0-4.5); HEMATOCRIT 37.5 % (35.4-49); HEMOGLOBIN 13.2 GM/dL (11.7-16.9); LYMPH % 8.7 % (8-40); MCH 32.6 pg (25.7-33.7); MCHC 35.1 g/dl (32.0-35.9); MEAN CELL VOLUME 92.8 fl (80-96); MEAN PLT VOLUME 8.6 fl (7.5-11.1); MONO % 12.6 % (3.8-10.2); NEUT % 77.8 % (42.8-82.8); PLATELET COUNT 166 K/MM3 (134-434); RBC 4.04 M/mm3 (4.00-5.60); RDW 15.4 % (11.9-15.9); WHITE BLOOD COUNT 3.8 K/mm3 (4.0-10.0)
--- NOTE | 2018-05-16 11:32 | PDOC ---
History of Present Illness - General Chief Complaint: Respiratory Stated Complaint: THE SHAKES UNCONTROLLED Time Seen by Provider: 05/16/18 10:45 History Source: Patient, Family Exam Limitations: No Limitations - History of Present Illness Initial Comments: 05/16/18 11:54 The patient is a 72 year old male, with a significant past medical history of Throat CA s/p radiation therapy, CVA with left residual paresthesias, GI ulcers , HTN, HLD, BPH, Bipolar Disorder, Hep C (treated with injections 11 yrs ago), Chronic Pain Syndrome, prior L1 compression Fx, who presents to the emergency department, accompanied by , for evaluation of subjective chills and shakes this morning, which has been occuring x 1 month as well. He states he wears a 75mcg Fentanyl patch daily as prescribed by his pain management doctor, however , felt chills and the shakes last night and took 30mg of Oxycodone total. He states his shakes and chills stopped after taking the 30mg of Oxycodone and allowed him to sleep through the night. He states this morning he woke up with the shakes and chills so he removed his Fentanyl patch and took 10mg of Oxycodone around 6AM. He reportedly took an additional 20mg of Oxycodone at 6: 30AM and another 10mg around 7:15 AM, but denies any relief from shakes and chills. Secondarily, he reports a pinched nerve pain to his right neck for about a month which associated intermittent pain down his right arm. He denies the pain now, has a lidoderm patch on his upper back. He states he noticed the pain after he turned his head quickly and heard a pop that caused the pain previously. He was eval on 05/09/18 here in the ED for the thoracic pain, CT unremarkable, no pathology noted and he was dcd on the oxycodone and lido patches to be taken as needed. The patient states he wears a lidocaine patch on his neck for his neck pain. He states he was not advised by his pain management physician to remove the patch and/or substitute for oxycodone. He states the oxycodone he had was prescribed to him a long time ago and he had left over from that time. He denies recent falls or traumas. He reports having an appointment with pain management on Sunday for an epidural. h/o neg stress testing and normal Echo with EF 77% in 2018. The patient denies chest pain, shortness of breath, headache and dizziness. The patient denies fever, nausea, vomiting, diarrhea and constipation. The patient denies dysuria, frequency, urgency and hematuria. Allergies: NKDA Social history: denies ETOH and tobacco Surgical Hx: Appendectomy, Thyroid cyst removed, Stomach Excision 2/2 Ulcer, Lumbar Discectomy PCP - Armando Nuñez ([facility]) ROS: General/Constitutional: no fevers. No weakness/sweats. +shakes and chills HEENT: no headache or dizziness. No congestion. CVS: no chest pain, palpitations or syncope. Resp: no SOB, wheezing or hemoptysis. No cough. Gastrointestinal: no abdominal pain, nausea or vomiting or diarrhea. Genitourinary: no urinary sx, hematuria, urgency or frequency. MUSCULOSKELETAL: No joint pain and swelling. +chronic neck and back pain SKIN: no redness or skin changes, no discharge, no rash. No wounds. HEMATOLOGIC/LYMPHATIC: No anemia, easy bruising/bleeding, or history of blood clots. NEUROLOGIC: No headache, dizziness, LOC or altered mental status. No weakness, numbness or tingling. +shakes/tremors Allergic/Immunologic: no allergies All other systems reviewed and negative, or as documented in HPI. Physical exam: General: Thin appearing elderly gentleman. awake and alert, NAD. HEENT: (+) dry mucous membranes. NCAT, PERRL, EOMI, clear conjunctiva, anicteric, clear oropharynx, no oral lesions. Neck: neck supple, FROM Resp: CTAB, normal and even respirations, no respiratory distress CVS: RRR, no murmurs, 2+ peripheral pulses throughout, no peripheral edema Abdomen: soft, NTND, no rebound or guarding. No CVAT. Back: nontender, normal inspection and ROM; topical lidoderm patch noted to upper thorax, nontender, MSK: no edema, GOMEZ x4, ROM intact. No clubbing or cyanosis. normal bulk and tone. Extremities: no calf tenderness Neuro: alert, oriented appropriately; no focal neurologic deficits, 5/5 director of managed services and prox/distal strength, SILT in all extrem. No pronator drift. Speech clear. Skin: warm and well perfused, cap refill <2 sec, normal color 05/16/18 12:31 Past History - Past Medical History Allergies/Adverse Reactions: Allergies Allergy/AdvReac Type Severity Reaction Status Date / Time No Known Allergies Allergy Verified 05/16/18 10:32 Home Medications: Ambulatory Orders Gabapentin [Neurontin] 900 mg PO QID 03/03/14 Clopidogrel Bisulfate [Plavix -] 75 mg PO DAILY 07/26/16 Sertraline HCl [Zoloft -] 50 mg PO DAILY 07/26/16 Tamsulosin HCl [Flomax] 0.4 mg PO DAILY 07/26/16 Fentanyl 12 mcg TD Q27H 07/29/16 Folic Acid 1 mg PO DAILY 07/29/16 Simvastatin 40 mg PO HS 07/29/16 Lidocaine 5% Patch [Lidoderm Patch -] 1 patch TP DAILY #7 patch 05/09/18 oxyCODONE HCL [Roxicodone -] 1 - 2 tab PO Q6H PRN #20 tablet MDD 8 tabs Cancer: Yes (throat) Cardiac Disorders: Yes CVA: Yes COPD: No GI Disorders: Yes (ulcers) HTN: Yes Hypercholesterolemia: Yes Psychiatric Problems: Yes (DEPRESSION) - Surgical History Abdominal Surgery: Yes (STOMACH EXCISION DUE TO ULCER) Appendectomy: Yes - Suicide/Smoking/Psychosocial Hx Smoking History: Unknown if ever smoked Have you smoked in the past 12 months: No Number of Cigarettes Smoked Daily: 10 If you are a former smoker, when did you quit?: 08/09 Information on smoking cessation initiated: No 'Breaking Loose' booklet given: 06/22/17 Hx Alcohol Use: No Drug/Substance Use Hx: No Substance Use Type: None *Physical Exam - Vital Signs Last Vital Signs Temp Pulse Resp BP Pulse Ox 98.4 F 66 22 H 105/47 L 97 05/16/18 10:35 05/16/18 10:35 05/16/18 10:35 05/16/18 10:35 05/16/18 10:35 Moderate Sedation - Procedure Monitoring Vital Signs: Procedure Monitoring Vital Signs Temperature 98.4 F 05/16/18 10:35 Pulse Rate 66 05/16/18 10:35 Respiratory Rate 22 H 05/16/18 10:35 Blood Pressure 105/47 L 05/16/18 10:35 O2 Sat by Pulse Oximetry (%) 97 05/16/18 10:35 Heart Score/ECG Review - ECG Impressions Normal ECG: Yes Comment:: 05/16/18 12:30 EKG normal sinus rhythm at 61 bpm, no interval abnormalities, narrow QRS, ST and T wave segments and morphology normal. Nonspecific T wave abnormalities in AVL only, unchanged from prior ED Treatment Course - LABORATORY CBC & Chemistry Diagram: 05/16/18 11:10 05/16/18 11:10 - ADDITIONAL ORDERS Additional order review: 05/16/18 11:10 RBC 4.04 MCV 92.8 MCHC 35.1 RDW 15.4 MPV 8.6 Neutrophils % 77.8 D Lymphocytes % 8.7 D Monocytes % 12.6 H Eosinophils % 0.2 D Basophils % 0.7 - RADIOLOGY Radiology Studies Ordered: Category Date Time Status CHEST X-RAY PORTABLE* [RAD] Stat Radiology 05/16/18 10:42 Ordered Medical Decision Making - Medical Decision Making 05/16/18 11:55 I, Ashley Richardson MD, attest that this document has been prepared under my direction and personally reviewed by me in its entirety. I further attest, that it accurately reflects all work, treatment, procedures and medical decision -making performed by me. See HPI for details Vital signs reviewed, wnl. mildly low BP, but asymptomatic. Prior notes reviewed, including admissions, discharges and consultations. laboratory results and imaging reviewed, basic labs and lytes wnl, notable for baseline leukopenia UA_neg for infection. CXR_no acute pathology EKG normal sinus rhythm at 61 bpm, no interval abnormalities, narrow QRS, ST and T wave segments and morphology normal. Nonspecific T wave abnormalities in AVL only, unchanged from prior ED course: no cp or sob. no syncope or dizziness. no acute neuro changes, normal mental status, no acute focal neuro deficits. doubt stroke/CVA or intracranial process. minimal complaints of pain, except for chronic back and neck pain with neuropathy, which he has managed outpatient with pain specialist. given dose of percocet, as he c/o upper back pain. (prior ct imaging done 1 week ago, no acute pathology noted nor neoplastic process) otherwise well appearing no fevers here. doubt infectious more likely opioid w/d, on high dose chronic opioids that is causing him his tremors and shakes. to follow with his PMD Dr Nuñez ([facility]) and pain specialists, encouraged to call and get his epidural inj due next week and discuss his pain management plan for his chronic pain syndrome. not to be dc'd with narcotics, ok with dose here. [place] [employer]ATIVE check - has been getting dispensals of fentanyl patches per [employer] for his chronic pain management, last dispensal 04/27/18 for #10. Pt to be discharged in stable condition. Patient and family made aware of impression and plan, return precautions discussed (including but not limited to worsening pain or symptoms), fevers, or signs of infection, chest pain, respiratory distress, inability to tolerate oral intake, dehydration, syncope, or neurologic changes). Follow up with PMD and/or specialist as recommended, follow up information provided, take medications as instructed for duration of time. continue with supportive care, avoid triggers and precipitants. All questions answered to patient's satisfaction and expressed understanding and comfort with this. Patient does not suffer from an acute life-threatening medical condition at this time she is safe for outpatient follow-up. 05/16/18 14:42 *DC/Admit/Observation/Transfer Diagnosis at time of Disposition: Occasional tremors, Opioid withdrawal Chronic back pain Qualifiers: Back pain location: back pain in unspecified location Back pain laterality: unspecified Qualified Code(s): M54.9 - Dorsalgia, unspecified - Discharge Dispostion Disposition: HOME Condition at time of disposition: Improved Decision to Admit order: No - Referrals Referrals: [facility] [place]Provider Group] [facility] [Provider Group] ON STAFF,NOT [Primary Care Provider] - Armando Nuñez [Non Staff, Medical] - - Patient Instructions Printed Discharge Instructions: DI for Musculoskeletal Pain, DI for Chronic Neck Pain, [facility] DI-Opioid Pain Medication Additional Instructions: 1) Please follow-up with your primary care doctor - Dr Morgan at [facility] - in the next 1-2 days. Please call tomorrow for an appointment. If you cannot follow -up with your primary care doctor please return to the ED for any urgent issues. 2) You were given a copy of the tests performed today. Please bring the results with you and review them with your primary care doctor. Your laboratory / imaging results were normal, negative Chest Xray, negative labs for abnormalities or pathologies, no infection, electrolytes normal. You did not have any fevers or signs of infection here or neurologic changes from your baseline. 3) If you have any worsening of symptoms or any other concerns please return to the ED immediately. Return if worsening symptoms including fevers, headache, vomiting, visual or hearing disturbances, abdominal pain, chest pain, shortness of breath, syncope, dehydration, inability to take things by mouth/vomiting, altered mental status, or worsening concerning symptoms. 4) Please continue taking your home medications as directed. please follow up with your primary doctor and pain specialist (Julia Grider - who dispense your patches) for management of your chronic pain. do not drink alcohol with your medications. opioids such as fentanyl and oxycodone can cause falls, sleepiness, drowsiness. you should discuss with your doctor for your management of these medications. you most likely may be having opioid withdrawal syndrome after taking yourself off the fentanyl patches and self medicating. - Post Discharge Activity
[2018-05-16 11:37] LABS: INR 0.95 (0.83-1.09); PROTHROMBIN TIME (PATIENT) 11.2 SEC (9.7-13.0)
[2018-05-16] MEDS ORDERED: SODIUM CHLORIDE 0.9% 500 ML INFUS.BAG IV ONE (11:43)
[2018-05-16 12:07] LABS: ALBUMIN 3.8 g/dl (3.4-5.0); ALK PHOS 75 U/L (45-117); ANION GAP 8 MMOL/L (8-16); BILIRUBIN,TOTAL 0.5 mg/dL (0.2-1); BLOOD UREA NITROGEN 14 mg/dL (7-18); CALCIUM 8.5 mg/dL (8.5-10.1); CHLORIDE 103 mmol/L (98-107); CO2 25 mmol/L (21-32); CREATININE 0.6 mg/dL (0.55-1.3); GLUCOSE,RANDOM 104 mg/dL (74-106); POTASSIUM 4.1 mmol/L (3.5-5.1); SGOT/AST 16 U/L (15-37); SGPT/ALT 21 U/L (13-61); SODIUM 136 mmol/L (136-145); TOT PROT 6.9 g/dl (6.4-8.2)
[2018-05-16 13:49] LABS: URINE APPEARANCE CLEAR; URINE BILIRUBIN NEGATIVE (<2.0 mg/dL); URINE COLOR LTYELLOW; URINE GLUCOSE (UA) NEGATIVE (NEGATIVE); URINE KETONE NEGATIVE (NEGATIVE); URINE LEUK ESTERASE NEGATIVE (NEGATIVE); URINE NITRITE NEGATIVE (NEGATIVE); URINE PROTEIN NEGATIVE (NEGATIVE)
[2018-05-16 15:19] VITALS: BP 150/85; PULSE 59
--- NOTE | 2018-05-16 15:41 | EKG ---
Test Reason : Blood Pressure : / mmHG Vent. Rate : 061 BPM Atrial Rate : 061 BPM P-R Int : 162 ms QRS Dur : 088 ms QT Int : 398 ms P-R-T Axes : 050 057 050 degrees QTc Int : 400 ms NORMAL SINUS RHYTHM POSSIBLE LEFT ATRIAL ENLARGEMENT BORDERLINE ECG WHEN COMPARED WITH ECG OF 22-JUN-2017 16:02, NO SIGNIFICANT CHANGE WAS FOUND Confirmed by PETRA LOPEZ MD ([id number]) on 05/16/2018 3:41:01 PM Referred By: Confirmed By:PETRA LOPEZ MD
== END 2018-05-16 15:00 | disposition home or self-care (01) ==
LOC: JER 10:12
DX: G25.1 Drug-induced tremor (principal); T40.2X5A Adverse effect of other opioids, initial encounter; Y92.018 Other place in single-family (private) house as the place of occurrence of the external cause; M54.9 Dorsalgia, unspecified; G89.29 Other chronic pain; I10 Essential (primary) hypertension; E78.5 Hyperlipidemia, unspecified; F31.9 Bipolar disorder, unspecified; N40.0 Benign prostatic hyperplasia without lower urinary tract symptoms; I69.854 Hemiplegia and hemiparesis following other cerebrovascular disease affecting left non-dominant side; Z85.818 Personal history of malignant neoplasm of other sites of lip, oral cavity, and pharynx; Z86.19 Personal history of other infectious and parasitic diseases; Z87.19 Personal history of other diseases of the digestive system
CPT/HCPCS: 36415; 71045-TC-FY; 80053; 81003; 83605; 85025; 85610; 87086; 93005; 93010; 99282-25

== ENCOUNTER 2019-02-14 07:05 | Day surgery (SDC) | payer OTHER ==
[2019-02-13 12:01] VITALS: BMI 19.6
[2019-02-14] MEDS ORDERED: LIDOCAINE 1%-EPI 1:100,000 30 ML MDV IJ ONE (08:28)
[2019-02-14] MEDS ORDERED: ROCURONIUM BROMIDE 50 MG/5 ML SYRINGE ONE (09:04)
[2019-02-14] MEDS ORDERED: MIDAZOLAM HCL 2 MG/2 ML SINGLE DOSE VIAL ONE (09:04)
[2019-02-14] MEDS ORDERED: PROPOFOL 20 ML ONE (09:04)
[2019-02-14] MEDS ORDERED: LIDOCAINE HCL/PF 2% SDV 5ML VIAL ONE (09:04)
[2019-02-14] MEDS ORDERED: LIDOCAINE HCL 2% (20ML MULTI-DOSE VIAL) NR ONE (09:08)
[2019-02-14] MEDS ORDERED: DEXAMETHASONE SOD PHOSPHATE 4 MG/1 ML VIAL ONE (09:37)
[2019-02-14] MEDS ORDERED: GLYCOPYRROLATE 0.2 MG/1 ML VIAL ONE (09:42)
[2019-02-14] MEDS ORDERED: NEOSTIGMINE METHYLSULFATE 0.5 MG/ML - 10 ML MDV ONE (09:42)
[2019-02-14] MEDS ORDERED: LIDOCAINE 1%/EPI 1:100000 (20 ML MULTI DOSE VIAL) INF ONE (09:45)
[2019-02-14] MEDS ORDERED: oxyCODONE HCL 5 MG TABLET PO PRN (10:17)
[2019-02-14] MEDS ORDERED: ONDANSETRON 4 MG/2 ML VIAL IVPUSH PRN (10:17)
[2019-02-14] MEDS ORDERED: ACETAMINOPHEN 325 MG TABLET (FP) PO PRN (10:17)
[2019-02-14] MEDS ORDERED: LACTATED RINGERS SOLUTION 1,000 ML IV SCH (10:30)
[2019-02-14] MEDS ORDERED: oxyCODONE HCL 5 MG TABLET ONE (12:10)
[2019-02-14 12:24] VITALS: TEMP 97.8
--- NOTE | 2019-02-14 13:13 | OP ---
DATE OF OPERATION: 02/14/2019 SURGICAL ATTENDING: Savannah Nolasco MD VISUAL EFFECTS EDITOR: FABIANO Mosher PREOPERATIVE DIAGNOSIS: Left posterior tongue nodularity. POSTOPERATIVE DIAGNOSIS: Left posterior tongue nodularity. ANESTHESIA: General endotracheal. PROCEDURES: 1. Direct laryngoscopy with biopsy. 2. Rigid esophagoscopy. DESCRIPTION OF PROCEDURE: The patient was taken into the operating room, placed in a supine position. Endotracheally intubated. The eyes were protected. Inspection with headlight and tongue blades revealed an area of nodularity, firmness, and mild ulceration in the left posterior oral tongue encroaching on the base of tongue. The remainder of the oral cavity appeared normal. Direct laryngoscopy was performed showing no other lesions in the upper digestive tract including the larynx and the piriform sinuses. Rigid esophagoscopy was performed to the mid thoracic esophagus, and no lesion was found. Again using the headlight, a throat pack was placed. Epinephrine with lidocaine was injected into the area of the left tongue nodularity, and 3 minutes were allowed to pass. A deep incisional biopsy was taken in a longitudinal fashion with a 15 blade in the area of nodularity and ulceration. This was sent to Pathology for evaluation and labeled as left posterior tongue mass. The biopsy site was closed with running 2-0 Vicryl stitch. The throat pack was removed. The patient was then awakened, extubated, and taken to recovery in stable condition. Dr. Nolasco, the attending surgeon, was present throughout the entire procedure. SAVANNAH NOLASCO M.D. [id number]
[2019-02-14 13:23] VITALS: BP 135/63; PULSE 68
--- NOTE | 2019-02-19 18:43 | PATH ---
Surgical Pathology Report Patient Name: GAUDENCIO BARKLEY Med. Rec. #: [id number] /Age/Gender: 1945 (Age: 73) / M Account: [id number] Location: [facility] Taken: 02/14/2019 Received: 02/14/2019 Reported: 02/19/2019 Physicians: Edy Kearney M.D. 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 NO HISTOLOGIC EVIDENCE OF CARCINOMA. Electronically Signed Yomaira Castanon M.D. Gross Description Received in formalin labeled "left posterior tongue biopsy," is a 1.2 x 0.5 x 0.5 cm hanley, rubbery portion of tissue, consistent with a tongue biopsy. The specimen is bisected and entirely submitted in one cassette. /02/14/2019 saudi02/14/2019
== END 2019-02-14 13:30 | disposition home or self-care (01) ==
LOC: JASU-SURG 07:05
PROVIDERS: ATTEND Surgery
PROC: 0CBM8ZX Excision of Pharynx, Via Natural or Artificial Opening Endoscopic, Diagnostic (ICD-10-PCS; principal; 2019-02-14 09:00)
PROC: 0DJ08ZZ Inspection of Upper Intestinal Tract, Via Natural or Artificial Opening Endoscopic (ICD-10-PCS; 2019-02-14 09:00)
DX: D10.1 Benign neoplasm of tongue (principal); C76.0 Malignant neoplasm of head, face and neck; C79.89 Secondary malignant neoplasm of other specified sites
CPT/HCPCS: 88305-TC; 94760

== ENCOUNTER → 2019-05-08 | Day surgery (SDC) | payer OTHER ==
[2019-05-08 11:37] LABS: BASO % 1.1 % (0-2.0); EOS % 2.1 % (0-4.5); HEMATOCRIT 37.3 % (35.4-49); HEMOGLOBIN 12.6 GM/dL (11.7-16.9); LYMPH % 19.7 % (8-40); MCH 30.8 pg (25.7-33.7); MCHC 33.8 g/dl (32.0-35.9); MEAN CELL VOLUME 91.2 fl (80-96); MEAN PLT VOLUME 7.5 fl (7.5-11.1); MONO % 8.9 % (3.8-10.2); NEUT % 68.2 % (42.8-82.8); PLATELET COUNT 251 K/MM3 (134-434); RBC 4.09 M/mm3 (4.00-5.60); WHITE BLOOD COUNT 3.6 K/mm3 (4.0-10.0)
[2019-05-08 11:51] LABS: INR 1.04 (0.83-1.09); PROTHROMBIN TIME (PATIENT) 12.3 SEC (9.7-13.0)
--- NOTE | 2019-05-09 16:58 | PATH ---
Surgical Pathology Report Patient Name: GAUDENCIO BARKLEY Med. Rec. #: [id number] /Age/Gender: 1945 (Age: 73) / M Account: [id number] Location: RADIOLOGY INTER Taken: 05/08/2019 Received: 05/08/2019 Reported: 05/09/2019 Physicians: Agustín Tejada M.D. Specimen(s) Received LEFT GROIN MASS Clinical History Large left groin mass, apparently fatty on ultrasound ?? Lipoma/lymphoma Final Diagnosis GROIN MASS, LEFT, ULTRASOUND GUIDED CORE BIOPSY: MATURE FIBROADIPOSE TISSUE WITH FOCAL FAT NECROSIS, SUGGESTIVE OF LIPOMATOUS LESION. NO SIGNIFICANT ATYPIA, MALIGNANCY, OR LYMPHOID TISSUE IDENTIFIED. DEEPER LEVELS HAVE BEEN EXAMINED. Comment: [facility] [place] (Specimen #: [id number]) shows no immunophenotypic evidence of a clonal B cell population. Suggest clinical and radiologic correlation. Electronically Signed Millie Ortega M.D. Gross Description Received in formalin labeled "left groin FNA" is a 1.0 x 0.7 x 0.1 cm aggregate of hanley-yellow, irregular to cylindrical soft tissue fragments. The specimen is submitted in toto in one cassette. There is additional tissue received in RPMI solution which is sent for flow cytometry. 05/08/2019 [facility]05/08/2019
== END | disposition home or self-care (01) ==
LOC: JRADIR 11:12
PROVIDERS: ATTEND Surgery
PROC: 0JBL0ZX Excision of Right Upper Leg Subcutaneous Tissue and Fascia, Open Approach, Diagnostic (ICD-10-PCS; principal; 2019-05-08)
PROC: 0JBC3ZX Excision of Pelvic Region Subcutaneous Tissue and Fascia, Percutaneous Approach, Diagnostic (ICD-10-PCS; 2019-05-08)
DX: D48.1 Neoplasm of uncertain behavior of connective and other soft tissue (principal)
CPT/HCPCS: 36415; 76942-TC; 85025; 85610; 87899; 88305-TC

== ENCOUNTER 2021-10-10 15:33 | Inpatient (IN) | payer OTHER ==
[2021-10-10 19:35] LABS: EOS % 1.1 % (0-4.5); HEMATOCRIT 38.7 % (35.4-49); HEMOGLOBIN 13.2 GM/dL (11.7-16.9); LYMPH % 26.8 % (8-40); MCH 30.2 pg (25.7-33.7); MEAN CELL VOLUME 88.9 fl (80-96); MEAN PLT VOLUME 8.1 fl (7.5-11.1); MONO % 11.1 % (3.8-10.2); PLATELET COUNT 204 10^3/uL (134-434); RBC 4.36 M/mm3 (4.00-5.60); RDW 16.5 % (11.9-15.9); WHITE BLOOD COUNT 3.8 K/mm3 (4.0-10.0)
[2021-10-10 19:47] LABS: INR 1.01 (0.83-1.09); PROTHROMBIN TIME (PATIENT) 11.6 SEC (9.7-13.0)
[2021-10-10 19:50] LABS: ACTIVATED PTT 31.4 SECONDS (25.2-36.5)
[2021-10-10 19:57] LABS: CALCIUM 9.5 mg/dL (8.5-10.1)
[2021-10-10 19:58] LABS: BLOOD UREA NITROGEN 12.8 mg/dL (7-18)
[2021-10-10 20:00] LABS: CREATININE 0.8 mg/dL (0.55-1.3)
[2021-10-10 20:02] LABS: BILIRUBIN,TOTAL 0.6 mg/dL (0.2-1)
[2021-10-10] MEDS ORDERED: SODIUM CHLORIDE 0.9% 500 ML INFUS.BAG IV ONE (21:32)
[2021-10-11] MEDS ORDERED: POTASSIUM CHLORIDE ORAL LIQUID 20 MEQ/15 ML PO ONE
[2021-10-11] MEDS ORDERED: ASPIRIN 325 MG ENTERIC COATED TABLET (FP) PO ONE (00:14)
[2021-10-11] MEDS ORDERED: POTASSIUM CHLORIDE ORAL LIQUID 20 MEQ/15 ML ONE (01:07)
[2021-10-11] MEDS ORDERED: ASPIRIN 325 MG ENTERIC COATED TABLET (FP) ONE (01:07)
[2021-10-11] MEDS ORDERED: KCL 10 MEQ IVPB 10 MEQ/100 ML INFUS.BAG IVPB ONE ×2 (01:07→03:44)
[2021-10-11] MEDS ORDERED: PREGABALIN 75 MG CAPSULE PO ONE (01:18)
[2021-10-11 01:27] LABS: MAGNESIUM 2.4 mg/dL (1.8-2.4)
[2021-10-11] MEDS ORDERED: PREGABALIN 100 MG CAPSULE ONE ×2 (01:39→21:10)
[2021-10-11] MEDS ORDERED: PREGABALIN 50 MG CAPSULE ONE ×2 (01:39→21:10)
[2021-10-11] MEDS ORDERED: PREGABALIN 100 MG, PREGABALIN 50 MG PO ONE (01:45)
[2021-10-11 01:47] LABS: URINE APPEARANCE CLEAR; URINE BILIRUBIN NEGATIVE (NEGATIVE); URINE COLOR YELLOW; URINE GLUCOSE (UA) NEGATIVE (NEGATIVE); URINE KETONE NEGATIVE (NEGATIVE); URINE LEUK ESTERASE NEGATIVE (NEGATIVE); URINE NITRITE NEGATIVE (NEGATIVE); URINE PROTEIN NEGATIVE (NEGATIVE); URINE UROBILINOGEN 0.2 mg/dL (0.2-1.0)
[2021-10-11] MEDS: KCL 10 MEQ IVPB 10 MEQ/100 ML INFUS.BAG IVPB SCH ×2 (01:51→03:50)
[2021-10-11] MEDS ORDERED: oxyCODONE HCL 5 MG TABLET PO ONE (02:06)
[2021-10-11] MEDS: LEVOTHYROXINE NA 25 MCG TABLET (FP) PO SCH ×2 (06:35→16:06)
[2021-10-11 07:18] VITALS: BMI 20.9
[2021-10-11] MEDS ORDERED: PNEUMOC 20-VAL CONJ-DIP CRM/PF 0.5 ML SYRINGE IM ONE (08:00)
[2021-10-11] MEDS: TAMSULOSIN HCL 0.4 MG CAP PO SCH (08:42)
[2021-10-11] MEDS: ASPIRIN 81 MG CHEWABLE TABLETS PO SCH (09:40)
[2021-10-11] MEDS: SERTRALINE HCL 50 MG TABLET (FP) PO SCH (09:41)
[2021-10-11] MEDS: PREGABALIN 100 MG, PREGABALIN 50 MG PO SCH ×2 (09:41→21:41)
[2021-10-11] MEDS: CLOPIDOGREL BISULFATE 75 MG TABLET (FP) PO SCH (09:41)
[2021-10-11] MEDS ORDERED: SILDENAFIL CITRATE PO SCH (10:00)
[2021-10-11] MEDS ORDERED: ASPIRIN 325 MG ENTERIC COATED TABLET (FP) PO SCH (10:00)
[2021-10-11] MEDS ORDERED: PREGABALIN 150 MG PO SCH (10:00)
[2021-10-11] MEDS ORDERED: PATIENT'S OWN MEDICATION (NON-FORMULARY) (Mirabegron [Myrbetriq] 25 MG Tab.Er.24h) PO SCH (10:00)
[2021-10-11] MEDS: ENOXAPARIN NA (PORCINE) 40 MG/0.4 ML DISP.SYRIN SQ SCH (10:13)
[2021-10-11 11:00] LABS: BASO % 0.3 % (0-2.0); HEMATOCRIT 30.7 % (35.4-49); HEMOGLOBIN 10.5 GM/dL (11.7-16.9); LYMPH % 27.6 % (8-40); MCH 30.5 pg (25.7-33.7); MCHC 34.2 g/dl (32.0-35.9); MEAN CELL VOLUME 89.4 fl (80-96); MEAN PLT VOLUME 8.7 fl (7.5-11.1); MONO % 14.5 % (3.8-10.2); NEUT % 56.6 % (42.8-82.8); PLATELET COUNT 157 10^3/uL (134-434); RBC 3.44 M/mm3 (4.00-5.60); RDW 16.3 % (11.9-15.9); WHITE BLOOD COUNT 2.7 K/mm3 (4.0-10.0)
[2021-10-11 12:54] LABS: CREATININE 0.6 mg/dL (0.55-1.3)
[2021-10-11 12:55] LABS: BILIRUBIN,TOTAL 1.1 mg/dL (0.2-1); PHOSPHOROUS 3.2 mg/dL (2.5-4.9); TOT PROT 6.2 g/dl (6.4-8.2)
[2021-10-11 13:01] LABS: CALCIUM 8.4 mg/dL (8.5-10.1); MAGNESIUM 2.2 mg/dL (1.8-2.4)
[2021-10-11 13:02] LABS: BLOOD UREA NITROGEN 11.2 mg/dL (7-18)
[2021-10-11 13:42] LABS: ALBUMIN 3.2 g/dl (3.4-5.0)
[2021-10-11] MEDS: amLODIPine BESYLATE 5 MG TABLET (FP) PO SCH (15:56)
[2021-10-11] MEDS: DEXTROSE 5%-LACTATED RINGERS 1,000 ML IV SCH ×2 (17:45→18:59)
[2021-10-11] MEDS: oxyCODONE HCL 5 MG TABLET PO PRN (17:46)
[2021-10-11] MEDS ORDERED: ATORVASTATIN CA 20 MG TABLET (FP) PO SCH (22:00)
[2021-10-12] MEDS: oxyCODONE HCL 5 MG TABLET PO PRN ×4 (00:08→18:03)
[2021-10-12] MEDS: LEVOTHYROXINE NA 25 MCG TABLET (FP) PO SCH (06:06)
[2021-10-12] MEDS: DEXTROSE 5%-LACTATED RINGERS 1,000 ML IV SCH ×2 (06:12→18:41)
[2021-10-12] MEDS: TAMSULOSIN HCL 0.4 MG CAP PO SCH (08:28)
[2021-10-12] MEDS ORDERED: ACETAMINOPHEN 325 MG TABLET (FP) PO PRN (10:05)
[2021-10-12] MEDS ORDERED: ACETAMINOPHEN 500 MG TABLET (FP) PO ONE (10:15)
[2021-10-12] MEDS ORDERED: PREGABALIN 50 MG CAPSULE ONE ×2 (11:32→21:25)
[2021-10-12] MEDS ORDERED: PREGABALIN 100 MG CAPSULE ONE ×2 (11:32→21:25)
[2021-10-12] MEDS: SERTRALINE HCL 50 MG TABLET (FP) PO SCH (11:43)
[2021-10-12] MEDS: ENOXAPARIN NA (PORCINE) 40 MG/0.4 ML DISP.SYRIN SQ SCH (11:43)
[2021-10-12] MEDS: ASPIRIN 81 MG CHEWABLE TABLETS PO SCH (11:43)
[2021-10-12] MEDS: amLODIPine BESYLATE 5 MG TABLET (FP) PO SCH (11:43)
[2021-10-12] MEDS: CLOPIDOGREL BISULFATE 75 MG TABLET (FP) PO SCH (11:43)
[2021-10-12] MEDS: PREGABALIN 100 MG, PREGABALIN 50 MG PO SCH ×2 (11:43→21:32)
[2021-10-12] MEDS: DOCUSATE SODIUM 100 MG CAPSULE (FP) PO SCH ×2 (15:23→21:33)
[2021-10-12] MEDS: ATORVASTATIN CA 40 MG TABLET (FP) PO SCH (21:33)
[2021-10-13] MEDS: oxyCODONE HCL 5 MG TABLET PO PRN ×4 (00:12→20:17)
[2021-10-13] MEDS: DEXTROSE 5%-LACTATED RINGERS 1,000 ML IV SCH ×2 (04:19→13:42)
[2021-10-13] MEDS: LEVOTHYROXINE NA 25 MCG TABLET (FP) PO SCH (06:15)
[2021-10-13] MEDS: DOCUSATE SODIUM 100 MG CAPSULE (FP) PO SCH ×3 (06:15→21:14)
[2021-10-13 07:10] LABS: BASO % 1.2 % (0-2.0); EOS % 4.9 % (0-4.5); HEMATOCRIT 29.4 % (35.4-49); HEMOGLOBIN 10.2 GM/dL (11.7-16.9); LYMPH % 23.1 % (8-40); MCHC 34.5 g/dl (32.0-35.9); MEAN CELL VOLUME 89.7 fl (80-96); MEAN PLT VOLUME 8.3 fl (7.5-11.1); MONO % 11.1 % (3.8-10.2); NEUT % 59.7 % (42.8-82.8); PLATELET COUNT 133 10^3/uL (134-434); RBC 3.28 M/mm3 (4.00-5.60); RDW 16.2 % (11.9-15.9); WHITE BLOOD COUNT 2.8 K/mm3 (4.0-10.0)
[2021-10-13 07:33] LABS: CALCIUM 8.2 mg/dL (8.5-10.1); MAGNESIUM 2.1 mg/dL (1.8-2.4)
[2021-10-13 07:36] LABS: CREATININE 0.6 mg/dL (0.55-1.3)
[2021-10-13 07:37] LABS: BILIRUBIN,TOTAL 0.6 mg/dL (0.2-1); TOT PROT 5.7 g/dl (6.4-8.2)
[2021-10-13] MEDS ORDERED: PREGABALIN 50 MG CAPSULE ONE ×2 (08:51→20:56)
[2021-10-13] MEDS ORDERED: PREGABALIN 100 MG CAPSULE ONE ×2 (08:52→20:56)
[2021-10-13] MEDS: amLODIPine BESYLATE 5 MG TABLET (FP) PO SCH (09:35)
[2021-10-13] MEDS: CLOPIDOGREL BISULFATE 75 MG TABLET (FP) PO SCH (09:35)
[2021-10-13] MEDS: ASPIRIN 81 MG CHEWABLE TABLETS PO SCH (09:35)
[2021-10-13] MEDS: PREGABALIN 100 MG, PREGABALIN 50 MG PO SCH ×2 (09:35→21:14)
[2021-10-13] MEDS: TAMSULOSIN HCL 0.4 MG CAP PO SCH (09:35)
[2021-10-13] MEDS: SERTRALINE HCL 50 MG TABLET (FP) PO SCH (09:35)
[2021-10-13] MEDS: ENOXAPARIN NA (PORCINE) 40 MG/0.4 ML DISP.SYRIN SQ SCH (09:35)
[2021-10-13] MEDS: ATORVASTATIN CA 40 MG TABLET (FP) PO SCH (21:14)
[2021-10-14] MEDS: oxyCODONE HCL 5 MG TABLET PO PRN ×4 (02:19→23:39)
[2021-10-14] MEDS: DOCUSATE SODIUM 100 MG CAPSULE (FP) PO SCH ×3 (05:14→22:08)
[2021-10-14] MEDS: LEVOTHYROXINE NA 25 MCG TABLET (FP) PO SCH (06:05)
[2021-10-14 08:21] LABS: BASO % 1.2 % (0-2.0); EOS % 3.9 % (0-4.5); HEMATOCRIT 29.1 % (35.4-49); HEMOGLOBIN 10.1 GM/dL (11.7-16.9); LYMPH % 26.5 % (8-40); MCH 30.9 pg (25.7-33.7); MCHC 34.6 g/dl (32.0-35.9); MEAN CELL VOLUME 89.2 fl (80-96); MEAN PLT VOLUME 8.3 fl (7.5-11.1); MONO % 14.8 % (3.8-10.2); NEUT % 53.6 % (42.8-82.8); PLATELET COUNT 133 10^3/uL (134-434); RBC 3.27 M/mm3 (4.00-5.60); RDW 16.2 % (11.9-15.9); WHITE BLOOD COUNT 2.2 K/mm3 (4.0-10.0)
[2021-10-14 08:36] LABS: CALCIUM 8.3 mg/dL (8.5-10.1)
[2021-10-14 08:37] LABS: ALBUMIN 2.8 g/dl (3.4-5.0); MAGNESIUM 2.3 mg/dL (1.8-2.4)
[2021-10-14 08:40] LABS: CREATININE 0.7 mg/dL (0.55-1.3)
[2021-10-14 08:42] LABS: BILIRUBIN,TOTAL 0.6 mg/dL (0.2-1); TOT PROT 5.6 g/dl (6.4-8.2)
[2021-10-14] MEDS ORDERED: PREGABALIN 50 MG CAPSULE ONE ×2 (08:50→21:26)
[2021-10-14] MEDS ORDERED: PREGABALIN 100 MG CAPSULE ONE ×2 (08:51→21:26)
[2021-10-14] MEDS: PREGABALIN 100 MG, PREGABALIN 50 MG PO SCH ×2 (09:22→22:08)
[2021-10-14] MEDS: ASPIRIN 81 MG CHEWABLE TABLETS PO SCH (09:23)
[2021-10-14] MEDS: SERTRALINE HCL 50 MG TABLET (FP) PO SCH (09:23)
[2021-10-14] MEDS: CLOPIDOGREL BISULFATE 75 MG TABLET (FP) PO SCH (09:23)
[2021-10-14] MEDS: amLODIPine BESYLATE 5 MG TABLET (FP) PO SCH (09:23)
[2021-10-14] MEDS: ENOXAPARIN NA (PORCINE) 40 MG/0.4 ML DISP.SYRIN SQ SCH (09:23)
[2021-10-14] MEDS: TAMSULOSIN HCL 0.4 MG CAP PO SCH (09:23)
[2021-10-14] MEDS: ATORVASTATIN CA 40 MG TABLET (FP) PO SCH (22:08)
[2021-10-15] MEDS: oxyCODONE HCL 5 MG TABLET PO PRN ×3 (05:43→22:27)
[2021-10-15] MEDS: DOCUSATE SODIUM 100 MG CAPSULE (FP) PO SCH ×3 (05:43→22:27)
[2021-10-15] MEDS: LEVOTHYROXINE NA 25 MCG TABLET (FP) PO SCH (06:30)
[2021-10-15 07:29] LABS: BASO % 0.9 % (0-2.0); EOS % 5.1 % (0-4.5); HEMATOCRIT 32.1 % (35.4-49); HEMOGLOBIN 10.9 GM/dL (11.7-16.9); LYMPH % 22.8 % (8-40); MCH 30.5 pg (25.7-33.7); MCHC 34.1 g/dl (32.0-35.9); MEAN CELL VOLUME 89.5 fl (80-96); MEAN PLT VOLUME 8.3 fl (7.5-11.1); MONO % 12.9 % (3.8-10.2); NEUT % 58.3 % (42.8-82.8); PLATELET COUNT 130 10^3/uL (134-434); RBC 3.59 M/mm3 (4.00-5.60); RDW 16.2 % (11.9-15.9); WHITE BLOOD COUNT 2.5 K/mm3 (4.0-10.0)
[2021-10-15 07:49] LABS: ALBUMIN 3.2 g/dl (3.4-5.0); BLOOD UREA NITROGEN 7.4 mg/dL (7-18); CALCIUM 8.5 mg/dL (8.5-10.1); MAGNESIUM 2.3 mg/dL (1.8-2.4)
[2021-10-15 07:52] LABS: CREATININE 0.7 mg/dL (0.55-1.3)
[2021-10-15 07:54] LABS: BILIRUBIN,TOTAL 0.8 mg/dL (0.2-1); TOT PROT 6.2 g/dl (6.4-8.2)
[2021-10-15] MEDS ORDERED: PREGABALIN 50 MG CAPSULE ONE ×2 (10:04→21:45)
[2021-10-15] MEDS ORDERED: PREGABALIN 100 MG CAPSULE ONE ×2 (10:04→21:45)
[2021-10-15] MEDS: TAMSULOSIN HCL 0.4 MG CAP PO SCH (10:30)
[2021-10-15] MEDS: ENOXAPARIN NA (PORCINE) 40 MG/0.4 ML DISP.SYRIN SQ SCH (10:30)
[2021-10-15] MEDS: PREGABALIN 100 MG, PREGABALIN 50 MG PO SCH ×2 (10:31→22:27)
[2021-10-15] MEDS: amLODIPine BESYLATE 5 MG TABLET (FP) PO SCH (10:31)
[2021-10-15] MEDS: CLOPIDOGREL BISULFATE 75 MG TABLET (FP) PO SCH (10:31)
[2021-10-15] MEDS: ASPIRIN 81 MG CHEWABLE TABLETS PO SCH (10:31)
[2021-10-15] MEDS: SERTRALINE HCL 50 MG TABLET (FP) PO SCH (10:31)
[2021-10-15] MEDS: ATORVASTATIN CA 40 MG TABLET (FP) PO SCH (22:27)
[2021-10-16] MEDS: DOCUSATE SODIUM 100 MG CAPSULE (FP) PO SCH ×3 (06:15→21:24)
[2021-10-16] MEDS: LEVOTHYROXINE NA 25 MCG TABLET (FP) PO SCH (06:15)
[2021-10-16 07:49] LABS: HEMATOCRIT 32.8 % (35.4-49); HEMOGLOBIN 11.2 GM/dL (11.7-16.9); LYMPH % 17.7 % (8-40); MCH 30.5 pg (25.7-33.7); MCHC 34.1 g/dl (32.0-35.9); MEAN CELL VOLUME 89.5 fl (80-96); MEAN PLT VOLUME 8.1 fl (7.5-11.1); MONO % 11.3 % (3.8-10.2); PLATELET COUNT 138 10^3/uL (134-434); RBC 3.67 M/mm3 (4.00-5.60); RDW 16.1 % (11.9-15.9); WHITE BLOOD COUNT 2.8 K/mm3 (4.0-10.0)
[2021-10-16 07:57] LABS: ALBUMIN 3.2 g/dl (3.4-5.0); BLOOD UREA NITROGEN 9.2 mg/dL (7-18); CALCIUM 8.8 mg/dL (8.5-10.1); MAGNESIUM 2.6 mg/dL (1.8-2.4)
[2021-10-16 08:00] LABS: CREATININE 0.7 mg/dL (0.55-1.3)
[2021-10-16 08:02] LABS: BILIRUBIN,TOTAL 0.6 mg/dL (0.2-1); TOT PROT 6.4 g/dl (6.4-8.2)
[2021-10-16] MEDS ORDERED: PREGABALIN 50 MG CAPSULE ONE ×2 (08:30→21:09)
[2021-10-16] MEDS ORDERED: PREGABALIN 100 MG CAPSULE ONE ×2 (08:30→21:10)
[2021-10-16] MEDS: ENOXAPARIN NA (PORCINE) 40 MG/0.4 ML DISP.SYRIN SQ SCH (09:24)
[2021-10-16] MEDS: PREGABALIN 100 MG, PREGABALIN 50 MG PO SCH ×2 (09:24→21:23)
[2021-10-16] MEDS: TAMSULOSIN HCL 0.4 MG CAP PO SCH (09:24)
[2021-10-16] MEDS: ASPIRIN 81 MG CHEWABLE TABLETS PO SCH (09:25)
[2021-10-16] MEDS: SERTRALINE HCL 50 MG TABLET (FP) PO SCH (09:25)
[2021-10-16] MEDS: CLOPIDOGREL BISULFATE 75 MG TABLET (FP) PO SCH (09:25)
[2021-10-16] MEDS: amLODIPine BESYLATE 5 MG TABLET (FP) PO SCH (09:25)
[2021-10-16] MEDS: oxyCODONE HCL 5 MG TABLET PO PRN ×2 (16:44→23:33)
[2021-10-16] MEDS: ATORVASTATIN CA 40 MG TABLET (FP) PO SCH (21:23)
[2021-10-16] MEDS: POLYETHYLENE GLYCOL (HEALTHYLAX) 3350 17 GM PACKET PO SCH (21:24)
[2021-10-17] MEDS: LEVOTHYROXINE NA 25 MCG TABLET (FP) PO SCH (06:18)
[2021-10-17] MEDS: DOCUSATE SODIUM 100 MG CAPSULE (FP) PO SCH ×3 (06:18→22:22)
[2021-10-17] MEDS: oxyCODONE HCL 5 MG TABLET PO PRN ×3 (06:18→18:29)
[2021-10-17 08:20] LABS: BASO % 0.6 % (0-2.0); EOS % 3.4 % (0-4.5); HEMATOCRIT 31.1 % (35.4-49); HEMOGLOBIN 10.6 GM/dL (11.7-16.9); LYMPH % 19.8 % (8-40); MCH 30.8 pg (25.7-33.7); MEAN CELL VOLUME 90.8 fl (80-96); MEAN PLT VOLUME 8.8 fl (7.5-11.1); MONO % 12.9 % (3.8-10.2); NEUT % 63.3 % (42.8-82.8); PLATELET COUNT 138 10^3/uL (134-434); RBC 3.43 M/mm3 (4.00-5.60); RDW 15.8 % (11.9-15.9); WHITE BLOOD COUNT 3.5 K/mm3 (4.0-10.0)
[2021-10-17] MEDS: TAMSULOSIN HCL 0.4 MG CAP PO SCH (08:21)
[2021-10-17 08:47] LABS: MAGNESIUM 2.5 mg/dL (1.8-2.4)
[2021-10-17 08:49] LABS: CALCIUM 8.4 mg/dL (8.5-10.1)
[2021-10-17 08:50] LABS: BLOOD UREA NITROGEN 6.8 mg/dL (7-18)
[2021-10-17 08:51] LABS: BILIRUBIN,TOTAL 0.5 mg/dL (0.2-1); CREATININE 0.6 mg/dL (0.55-1.3)
[2021-10-17] MEDS ORDERED: PREGABALIN 50 MG CAPSULE ONE ×2 (09:09→21:13)
[2021-10-17] MEDS ORDERED: PREGABALIN 100 MG CAPSULE ONE ×2 (09:10→21:14)
[2021-10-17] MEDS: CLOPIDOGREL BISULFATE 75 MG TABLET (FP) PO SCH (09:17)
[2021-10-17] MEDS: ENOXAPARIN NA (PORCINE) 40 MG/0.4 ML DISP.SYRIN SQ SCH (09:18)
[2021-10-17] MEDS: amLODIPine BESYLATE 5 MG TABLET (FP) PO SCH (09:18)
[2021-10-17] MEDS: SERTRALINE HCL 50 MG TABLET (FP) PO SCH (09:18)
[2021-10-17] MEDS: POLYETHYLENE GLYCOL (HEALTHYLAX) 3350 17 GM PACKET PO SCH ×2 (09:18→22:25)
[2021-10-17] MEDS: ASPIRIN 81 MG CHEWABLE TABLETS PO SCH (09:18)
[2021-10-17] MEDS: PREGABALIN 100 MG, PREGABALIN 50 MG PO SCH ×2 (09:21→22:23)
[2021-10-17] MEDS: [UNRECOGNIZED DRUG - OTHER] PO SCH (11:50)
[2021-10-17] MEDS: MYRBETRIQ 25 MG PO SCH (11:50)
[2021-10-17] MEDS: ATORVASTATIN CA 40 MG TABLET (FP) PO SCH (22:23)
[2021-10-18] MEDS: oxyCODONE HCL 5 MG TABLET PO PRN ×4 (01:54→21:30)
[2021-10-18] MEDS: LEVOTHYROXINE NA 25 MCG TABLET (FP) PO SCH (06:01)
[2021-10-18] MEDS: DOCUSATE SODIUM 100 MG CAPSULE (FP) PO SCH ×3 (06:01→21:15)
[2021-10-18 07:25] LABS: BASO % 0.6 % (0-2.0); HEMATOCRIT 31.1 % (35.4-49); HEMOGLOBIN 10.7 GM/dL (11.7-16.9); LYMPH % 22.3 % (8-40); MCH 30.7 pg (25.7-33.7); MCHC 34.3 g/dl (32.0-35.9); MEAN CELL VOLUME 89.6 fl (80-96); MEAN PLT VOLUME 8.5 fl (7.5-11.1); MONO % 14.7 % (3.8-10.2); NEUT % 59.4 % (42.8-82.8); PLATELET COUNT 143 10^3/uL (134-434); RBC 3.47 M/mm3 (4.00-5.60); RDW 16.1 % (11.9-15.9); WHITE BLOOD COUNT 2.9 K/mm3 (4.0-10.0)
[2021-10-18 07:38] LABS: BLOOD UREA NITROGEN 9.4 mg/dL (7-18); CALCIUM 8.4 mg/dL (8.5-10.1); MAGNESIUM 2.4 mg/dL (1.8-2.4)
[2021-10-18 07:41] LABS: CREATININE 0.7 mg/dL (0.55-1.3)
[2021-10-18 07:43] LABS: BILIRUBIN,TOTAL 0.5 mg/dL (0.2-1)
[2021-10-18] MEDS: TAMSULOSIN HCL 0.4 MG CAP PO SCH (08:31)
[2021-10-18] MEDS ORDERED: PREGABALIN 50 MG CAPSULE ONE ×2 (09:31→20:44)
[2021-10-18] MEDS ORDERED: PREGABALIN 100 MG CAPSULE ONE ×2 (09:31→20:45)
[2021-10-18] MEDS: POLYETHYLENE GLYCOL (HEALTHYLAX) 3350 17 GM PACKET PO SCH ×2 (10:01→21:16)
[2021-10-18] MEDS: amLODIPine BESYLATE 5 MG TABLET (FP) PO SCH (10:02)
[2021-10-18] MEDS: PREGABALIN 100 MG, PREGABALIN 50 MG PO SCH ×2 (10:02→21:16)
[2021-10-18] MEDS: ASPIRIN 81 MG CHEWABLE TABLETS PO SCH (10:02)
[2021-10-18] MEDS: CLOPIDOGREL BISULFATE 75 MG TABLET (FP) PO SCH (10:02)
[2021-10-18] MEDS: CYANOCOBALAMIN 1,000 MCG TABLET (FP) PO SCH (10:02)
[2021-10-18] MEDS: SERTRALINE HCL 50 MG TABLET (FP) PO SCH (10:02)
[2021-10-18] MEDS: ENOXAPARIN NA (PORCINE) 40 MG/0.4 ML DISP.SYRIN SQ SCH (10:02)
[2021-10-18] MEDS: MYRBETRIQ 25 MG PO SCH (10:18)
[2021-10-18] MEDS: [UNRECOGNIZED DRUG - OTHER] PO SCH (10:18)
[2021-10-18] MEDS: ATORVASTATIN CA 40 MG TABLET (FP) PO SCH (21:15)
[2021-10-19] MEDS: oxyCODONE HCL 5 MG TABLET PO PRN ×4 (04:04→23:30)
[2021-10-19] MEDS: LEVOTHYROXINE NA 25 MCG TABLET (FP) PO SCH (06:22)
[2021-10-19] MEDS: DOCUSATE SODIUM 100 MG CAPSULE (FP) PO SCH ×3 (06:22→21:50)
[2021-10-19 07:31] LABS: HEMATOCRIT 32.7 % (35.4-49); HEMOGLOBIN 11.1 GM/dL (11.7-16.9); LYMPH % 26.7 % (8-40); MCH 30.7 pg (25.7-33.7); MCHC 33.9 g/dl (32.0-35.9); MEAN CELL VOLUME 90.6 fl (80-96); MEAN PLT VOLUME 8.4 fl (7.5-11.1); MONO % 14.5 % (3.8-10.2); NEUT % 53.8 % (42.8-82.8); PLATELET COUNT 158 10^3/uL (134-434); RBC 3.61 M/mm3 (4.00-5.60); RDW 16.3 % (11.9-15.9); WHITE BLOOD COUNT 2.7 K/mm3 (4.0-10.0)
[2021-10-19 08:04] LABS: BLOOD UREA NITROGEN 8.7 mg/dL (7-18)
[2021-10-19 08:05] LABS: CALCIUM 8.4 mg/dL (8.5-10.1); MAGNESIUM 2.4 mg/dL (1.8-2.4)
[2021-10-19 08:06] LABS: CREATININE 0.7 mg/dL (0.55-1.3)
[2021-10-19 08:07] LABS: BILIRUBIN,TOTAL 0.5 mg/dL (0.2-1); TOT PROT 6.3 g/dl (6.4-8.2)
[2021-10-19] MEDS: TAMSULOSIN HCL 0.4 MG CAP PO SCH (08:37)
[2021-10-19] MEDS ORDERED: PREGABALIN 100 MG CAPSULE ONE ×2 (10:05→21:39)
[2021-10-19] MEDS ORDERED: PREGABALIN 50 MG CAPSULE ONE ×2 (10:05→21:38)
[2021-10-19] MEDS: POLYETHYLENE GLYCOL (HEALTHYLAX) 3350 17 GM PACKET PO SCH ×2 (10:41→21:50)
[2021-10-19] MEDS: ENOXAPARIN NA (PORCINE) 40 MG/0.4 ML DISP.SYRIN SQ SCH (10:41)
[2021-10-19] MEDS: PREGABALIN 100 MG, PREGABALIN 50 MG PO SCH ×2 (10:42→21:50)
[2021-10-19] MEDS: CLOPIDOGREL BISULFATE 75 MG TABLET (FP) PO SCH (10:42)
[2021-10-19] MEDS: amLODIPine BESYLATE 5 MG TABLET (FP) PO SCH (10:42)
[2021-10-19] MEDS: SERTRALINE HCL 50 MG TABLET (FP) PO SCH (10:42)
[2021-10-19] MEDS: CYANOCOBALAMIN 1,000 MCG TABLET (FP) PO SCH (10:43)
[2021-10-19] MEDS: ASPIRIN 81 MG CHEWABLE TABLETS PO SCH (10:43)
[2021-10-19] MEDS: [UNRECOGNIZED DRUG - OTHER] PO SCH (11:14)
[2021-10-19] MEDS: MYRBETRIQ 25 MG PO SCH (11:14)
[2021-10-19] MEDS: ATORVASTATIN CA 40 MG TABLET (FP) PO SCH (21:50)
[2021-10-20] MEDS: LEVOTHYROXINE NA 25 MCG TABLET (FP) PO SCH (05:59)
[2021-10-20] MEDS: DOCUSATE SODIUM 100 MG CAPSULE (FP) PO SCH ×3 (05:59→22:18)
[2021-10-20] MEDS: oxyCODONE HCL 5 MG TABLET PO PRN ×4 (05:59→23:52)
[2021-10-20 07:34] LABS: BASO % 0.8 % (0-2.0); EOS % 2.8 % (0-4.5); HEMATOCRIT 31.8 % (35.4-49); LYMPH % 16.7 % (8-40); MCH 31.1 pg (25.7-33.7); MCHC 34.7 g/dl (32.0-35.9); MEAN CELL VOLUME 89.7 fl (80-96); MEAN PLT VOLUME 8.4 fl (7.5-11.1); NEUT % 67.7 % (42.8-82.8); PLATELET COUNT 153 10^3/uL (134-434); RBC 3.55 M/mm3 (4.00-5.60); RDW 16.3 % (11.9-15.9); WHITE BLOOD COUNT 3.4 K/mm3 (4.0-10.0)
[2021-10-20 07:55] LABS: CALCIUM 8.5 mg/dL (8.5-10.1)
[2021-10-20 07:56] LABS: ALBUMIN 3.2 g/dl (3.4-5.0); BLOOD UREA NITROGEN 9.4 mg/dL (7-18); MAGNESIUM 2.5 mg/dL (1.8-2.4)
[2021-10-20 07:59] LABS: CREATININE 0.7 mg/dL (0.55-1.3)
[2021-10-20 08:00] LABS: BILIRUBIN,TOTAL 0.5 mg/dL (0.2-1); TOT PROT 6.4 g/dl (6.4-8.2)
[2021-10-20] MEDS: TAMSULOSIN HCL 0.4 MG CAP PO SCH (08:42)
[2021-10-20] MEDS ORDERED: PREGABALIN 50 MG CAPSULE ONE ×2 (09:20→21:28)
[2021-10-20] MEDS ORDERED: PREGABALIN 100 MG CAPSULE ONE ×2 (09:20→21:28)
[2021-10-20] MEDS: [UNRECOGNIZED DRUG - OTHER] PO SCH (09:49)
[2021-10-20] MEDS: MYRBETRIQ 25 MG PO SCH (09:49)
[2021-10-20] MEDS: SERTRALINE HCL 50 MG TABLET (FP) PO SCH (09:50)
[2021-10-20] MEDS: ASPIRIN 81 MG CHEWABLE TABLETS PO SCH (09:50)
[2021-10-20] MEDS: amLODIPine BESYLATE 5 MG TABLET (FP) PO SCH (09:50)
[2021-10-20] MEDS: CYANOCOBALAMIN 1,000 MCG TABLET (FP) PO SCH (09:50)
[2021-10-20] MEDS: PREGABALIN 100 MG, PREGABALIN 50 MG PO SCH ×2 (09:50→22:18)
[2021-10-20] MEDS: CLOPIDOGREL BISULFATE 75 MG TABLET (FP) PO SCH (09:50)
[2021-10-20] MEDS: POLYETHYLENE GLYCOL (HEALTHYLAX) 3350 17 GM PACKET PO SCH ×2 (09:52→22:17)
[2021-10-20] MEDS: ENOXAPARIN NA (PORCINE) 40 MG/0.4 ML DISP.SYRIN SQ SCH (09:52)
[2021-10-20] MEDS: ATORVASTATIN CA 40 MG TABLET (FP) PO SCH (22:18)
[2021-10-21] MEDS: LEVOTHYROXINE NA 25 MCG TABLET (FP) PO SCH (06:18)
[2021-10-21] MEDS: DOCUSATE SODIUM 100 MG CAPSULE (FP) PO SCH ×2 (06:18→13:03)
[2021-10-21] MEDS: oxyCODONE HCL 5 MG TABLET PO PRN ×3 (06:23→18:30)
[2021-10-21 07:25] LABS: BASO % 1.2 % (0-2.0); EOS % 3.4 % (0-4.5); HEMATOCRIT 31.8 % (35.4-49); HEMOGLOBIN 10.8 GM/dL (11.7-16.9); LYMPH % 29.8 % (8-40); MCH 30.5 pg (25.7-33.7); MEAN CELL VOLUME 89.7 fl (80-96); MEAN PLT VOLUME 8.3 fl (7.5-11.1); MONO % 14.9 % (3.8-10.2); NEUT % 50.7 % (42.8-82.8); PLATELET COUNT 151 10^3/uL (134-434); RBC 3.55 M/mm3 (4.00-5.60); WHITE BLOOD COUNT 2.7 K/mm3 (4.0-10.0)
[2021-10-21 07:46] LABS: ALBUMIN 3.1 g/dl (3.4-5.0); BLOOD UREA NITROGEN 11.1 mg/dL (7-18); CALCIUM 8.6 mg/dL (8.5-10.1)
[2021-10-21 07:47] LABS: MAGNESIUM 2.5 mg/dL (1.8-2.4)
[2021-10-21 07:49] LABS: CREATININE 0.7 mg/dL (0.55-1.3)
[2021-10-21 07:51] LABS: BILIRUBIN,TOTAL 0.4 mg/dL (0.2-1); TOT PROT 6.3 g/dl (6.4-8.2)
[2021-10-21] MEDS ORDERED: PREGABALIN 50 MG CAPSULE ONE (09:34)
[2021-10-21] MEDS ORDERED: PREGABALIN 100 MG CAPSULE ONE (09:34)
[2021-10-21] MEDS: TAMSULOSIN HCL 0.4 MG CAP PO SCH (09:36)
[2021-10-21 09:45] VITALS: RESP 18
[2021-10-21] MEDS: POLYETHYLENE GLYCOL (HEALTHYLAX) 3350 17 GM PACKET PO SCH (10:23)
[2021-10-21] MEDS: CLOPIDOGREL BISULFATE 75 MG TABLET (FP) PO SCH (10:23)
[2021-10-21] MEDS: ENOXAPARIN NA (PORCINE) 40 MG/0.4 ML DISP.SYRIN SQ SCH (10:23)
[2021-10-21] MEDS: CYANOCOBALAMIN 1,000 MCG TABLET (FP) PO SCH (10:24)
[2021-10-21] MEDS: ASPIRIN 81 MG CHEWABLE TABLETS PO SCH (10:24)
[2021-10-21] MEDS: amLODIPine BESYLATE 5 MG TABLET (FP) PO SCH (10:24)
[2021-10-21] MEDS: PREGABALIN 100 MG, PREGABALIN 50 MG PO SCH (10:24)
[2021-10-21] MEDS: SERTRALINE HCL 50 MG TABLET (FP) PO SCH (10:24)
[2021-10-21] MEDS: [UNRECOGNIZED DRUG - OTHER] PO SCH (10:25)
[2021-10-21] MEDS: MYRBETRIQ 25 MG PO SCH (10:25)
[2021-10-21 16:49] VITALS: BP 115/58; PULSE 74; TEMP 98.2
== END 2021-10-21 18:30 | DRG 65 ==
LOC: JER 15:33 → JERBED 20:24 → J6S 10-11 06:11 → J4W 10-12 17:30
PROVIDERS: ADMIT Internal Medicine; ATTEND Nurse Practitioner Acute Care
DX: I63.89 Other cerebral infarction (principal); G81.92 Hemiplegia, unspecified affecting left dominant side; D61.818 Other pancytopenia; R29.705 NIHSS score 5; E78.5 Hyperlipidemia, unspecified; N40.0 Benign prostatic hyperplasia without lower urinary tract symptoms; F31.9 Bipolar disorder, unspecified; I10 Essential (primary) hypertension; G62.9 Polyneuropathy, unspecified; E03.9 Hypothyroidism, unspecified; R13.10 Dysphagia, unspecified; G89.4 Chronic pain syndrome; E87.6 Hypokalemia; M54.9 Dorsalgia, unspecified; R91.1 Solitary pulmonary nodule; K59.00 Constipation, unspecified; Z85.819 Personal history of malignant neoplasm of unspecified site of lip, oral cavity, and pharynx; Z86.19 Personal history of other infectious and parasitic diseases
CPT/HCPCS: 36415; 70450-TC; 70460-TC; 71250-TC; 72125-TC; 76705-TC; 80053; 80061; 81003; 82607; 82746; 82747; 83036; 83516; 83615; 83735; 84100; 84443; 85014; 85025; 85610; 85651; 85730; 86140; 86340; 86850; 86900; 86901; 93005; 93010; 93306-TC; 93880-TC; 97116-GP; 97162-GP; 99285-25; C9803-CS; Q9967; U0003; U0005

== ENCOUNTER 2021-10-28 20:10 | Observation (INO) | payer OTHER ==
[2021-10-28] MEDS ORDERED: ASPIRIN 81 MG CHEWABLE TABLETS PO ONE (21:32)
[2021-10-28] MEDS ORDERED: ASPIRIN 81 MG CHEWABLE TABLETS ONE (21:40)
[2021-10-28 22:10] LABS: BASO % 0.7 % (0-2.0); HEMATOCRIT 30.7 % (35.4-49); HEMOGLOBIN 10.7 GM/dL (11.7-16.9); MCH 30.6 pg (25.7-33.7); MCHC 34.8 g/dl (32.0-35.9); MEAN CELL VOLUME 87.9 fl (80-96); MEAN PLT VOLUME 7.9 fl (7.5-11.1); NEUT % 50.3 % (42.8-82.8); PLATELET COUNT 196 10^3/uL (134-434); RBC 3.49 M/mm3 (4.00-5.60); RDW 15.4 % (11.9-15.9)
[2021-10-28 22:27] LABS: ALBUMIN 3.2 g/dl (3.4-5.0); CALCIUM 8.7 mg/dL (8.5-10.1)
[2021-10-28 22:28] LABS: BLOOD UREA NITROGEN 13.9 mg/dL (7-18)
[2021-10-28 22:30] LABS: CREATININE 0.7 mg/dL (0.55-1.3)
[2021-10-28 22:32] LABS: BILIRUBIN,TOTAL 0.6 mg/dL (0.2-1); TOT PROT 6.6 g/dl (6.4-8.2)
[2021-10-28] MEDS ORDERED: SODIUM CHLORIDE 0.9% 500 ML INFUS.BAG IV ONE ×2 (22:39)
[2021-10-29] MEDS ORDERED: SILDENAFIL CITRATE PO PRN (03:04)
[2021-10-29] MEDS: oxyCODONE HCL 5 MG TABLET PO ONE ×2 (03:12→09:15)
[2021-10-29] MEDS ORDERED: SENNOSIDES 8.8 MG/5 ML BULK BOTTLE PO ONE (03:13)
[2021-10-29] MEDS ORDERED: DOCUSATE SODIUM 100 MG CAPSULE (FP) PO ONE ×2 (05:11→15:17)
[2021-10-29] MEDS: DOCUSATE SODIUM 100 MG CAPSULE (FP) PO SCH ×3 (06:04→21:01)
[2021-10-29] MEDS ORDERED: oxyCODONE HCL 5 MG TABLET ONE ×2 (09:09→15:17)
[2021-10-29] MEDS ORDERED: LEVOTHYROXINE NA 25 MCG TABLET (FP) ONE (09:09)
[2021-10-29] MEDS: LEVOTHYROXINE NA 25 MCG TABLET (FP) PO SCH (09:12)
[2021-10-29] MEDS: oxyCODONE HCL 5 MG TABLET PO PRN ×4 (09:12→21:01)
[2021-10-29] MEDS ORDERED: HYDROCHLOROTHIAZIDE 12.5 MG CAPSULE (FP) PO SCH (10:00)
[2021-10-29] MEDS ORDERED: amLODIPine BESYLATE 5 MG TABLET (FP) PO SCH (10:00)
[2021-10-29] MEDS ORDERED: PATIENT'S OWN MEDICATION (NON-FORMULARY) (Lisinopril/Hydrochlorothiazide [Zestoretic 20-12 PO SCH (10:00)
[2021-10-29] MEDS ORDERED: LISINOPRIL 20 MG TABLET PO SCH (10:00)
[2021-10-29] MEDS ORDERED: POLYETHYLENE GLYCOL (HEALTHYLAX) 3350 17 GM PACKET ONE (10:35)
[2021-10-29] MEDS ORDERED: PREGABALIN 100 MG CAPSULE ONE (10:36)
[2021-10-29] MEDS ORDERED: PREGABALIN 50 MG CAPSULE ONE (10:36)
[2021-10-29] MEDS ORDERED: SERTRALINE HCL 50 MG TABLET (FP) ONE (10:36)
[2021-10-29] MEDS ORDERED: CLOPIDOGREL BISULFATE 75 MG TABLET (FP) ONE (10:36)
[2021-10-29] MEDS ORDERED: ASPIRIN 81 MG CHEWABLE TABLETS ONE (10:36)
[2021-10-29] MEDS: PATIENT'S OWN MEDICATION (NON-FORMULARY) (Mirabegron [Myrbetriq] 25 MG Tab.Er.24h) PO SCH (10:43)
[2021-10-29] MEDS: PREGABALIN 50 MG CAPSULE PO SCH ×2 (10:43→21:02)
[2021-10-29] MEDS: CLOPIDOGREL BISULFATE 75 MG TABLET (FP) PO SCH (10:43)
[2021-10-29] MEDS: POLYETHYLENE GLYCOL (HEALTHYLAX) 3350 17 GM PACKET PO SCH ×2 (10:43→21:02)
[2021-10-29] MEDS: ASPIRIN 81 MG CHEWABLE TABLETS PO SCH (10:43)
[2021-10-29] MEDS: SOLIFENACIN SUCCINATE 5 MG TAB PO SCH (10:44)
[2021-10-29] MEDS: CYANOCOBALAMIN 1,000 MCG TABLET (FP) PO SCH (10:44)
[2021-10-29] MEDS: SERTRALINE HCL 50 MG TABLET (FP) PO SCH (10:44)
[2021-10-29 15:52] LABS: ALBUMIN 3.2 g/dl (3.4-5.0); CALCIUM 8.6 mg/dL (8.5-10.1)
[2021-10-29 15:53] LABS: BLOOD UREA NITROGEN 10.2 mg/dL (7-18)
[2021-10-29 15:57] LABS: TOT PROT 6.4 g/dl (6.4-8.2)
[2021-10-29 15:59] LABS: BASO % 0.7 % (0-2.0); EOS % 1.3 % (0-4.5); HEMATOCRIT 32.8 % (35.4-49); HEMOGLOBIN 11.3 GM/dL (11.7-16.9); MCH 30.4 pg (25.7-33.7); MCHC 34.4 g/dl (32.0-35.9); MEAN CELL VOLUME 88.4 fl (80-96); MEAN PLT VOLUME 7.8 fl (7.5-11.1); MONO % 12.9 % (3.8-10.2); NEUT % 68.1 % (42.8-82.8); PLATELET COUNT 224 10^3/uL (134-434); RBC 3.71 M/mm3 (4.00-5.60); RDW 15.3 % (11.9-15.9); WHITE BLOOD COUNT 2.6 K/mm3 (4.0-10.0)
[2021-10-29 16:03] LABS: BILIRUBIN,TOTAL 0.6 mg/dL (0.2-1)
[2021-10-29 20:30] VITALS: BMI 20.4
[2021-10-29] MEDS: ATORVASTATIN CA 20 MG TABLET (FP) PO SCH (21:03)
[2021-10-29] MEDS: TAMSULOSIN HCL 0.4 MG CAP PO SCH (21:03)
[2021-10-30] MEDS: oxyCODONE HCL 5 MG TABLET PO PRN ×4 (02:41→21:39)
[2021-10-30] MEDS: ACETAMINOPHEN 325 MG TABLET (FP) PO PRN (04:50)
[2021-10-30] MEDS ORDERED: morphine SULFATE 4 MG/ML VIAL IVPUSH ONE (05:19)
[2021-10-30] MEDS: DOCUSATE SODIUM 100 MG CAPSULE (FP) PO SCH ×3 (05:25→21:39)
[2021-10-30] MEDS: LEVOTHYROXINE NA 25 MCG TABLET (FP) PO SCH (06:43)
[2021-10-30 09:05] LABS: BASO % 0.8 % (0-2.0); EOS % 2.8 % (0-4.5); HEMATOCRIT 32.3 % (35.4-49); HEMOGLOBIN 11.1 GM/dL (11.7-16.9); LYMPH % 21.9 % (8-40); MCH 30.8 pg (25.7-33.7); MCHC 34.4 g/dl (32.0-35.9); MEAN CELL VOLUME 89.4 fl (80-96); MEAN PLT VOLUME 7.8 fl (7.5-11.1); MONO % 13.7 % (3.8-10.2); NEUT % 60.8 % (42.8-82.8); PLATELET COUNT 215 10^3/uL (134-434); RBC 3.62 M/mm3 (4.00-5.60); RDW 15.4 % (11.9-15.9); WHITE BLOOD COUNT 2.6 K/mm3 (4.0-10.0)
[2021-10-30] MEDS: POLYETHYLENE GLYCOL (HEALTHYLAX) 3350 17 GM PACKET PO SCH ×2 (09:14→21:39)
[2021-10-30] MEDS: ENOXAPARIN NA (PORCINE) 40 MG/0.4 ML DISP.SYRIN SQ SCH (09:14)
[2021-10-30] MEDS: SERTRALINE HCL 50 MG TABLET (FP) PO SCH (09:15)
[2021-10-30] MEDS: PREGABALIN 50 MG CAPSULE PO SCH ×2 (09:15→21:38)
[2021-10-30] MEDS: ASPIRIN 81 MG CHEWABLE TABLETS PO SCH (09:16)
[2021-10-30] MEDS: CYANOCOBALAMIN 1,000 MCG TABLET (FP) PO SCH (09:16)
[2021-10-30] MEDS: CLOPIDOGREL BISULFATE 75 MG TABLET (FP) PO SCH (09:16)
[2021-10-30] MEDS: SOLIFENACIN SUCCINATE 5 MG TAB PO SCH (09:16)
[2021-10-30 09:28] LABS: BLOOD UREA NITROGEN 9.4 mg/dL (7-18); MAGNESIUM 2.3 mg/dL (1.8-2.4)
[2021-10-30 09:31] LABS: CREATININE 0.6 mg/dL (0.55-1.3); PHOSPHOROUS 4.1 mg/dL (2.5-4.9)
[2021-10-30] MEDS: ATORVASTATIN CA 20 MG TABLET (FP) PO SCH (21:39)
[2021-10-30] MEDS: TAMSULOSIN HCL 0.4 MG CAP PO SCH (21:39)
[2021-10-31] MEDS: oxyCODONE HCL 5 MG TABLET PO PRN ×3 (04:38→21:09)
[2021-10-31] MEDS: DOCUSATE SODIUM 100 MG CAPSULE (FP) PO SCH ×3 (05:27→21:07)
[2021-10-31] MEDS: LEVOTHYROXINE NA 25 MCG TABLET (FP) PO SCH (05:59)
[2021-10-31] MEDS: ENOXAPARIN NA (PORCINE) 40 MG/0.4 ML DISP.SYRIN SQ SCH (09:30)
[2021-10-31] MEDS: ASPIRIN 81 MG CHEWABLE TABLETS PO SCH (09:30)
[2021-10-31] MEDS: SERTRALINE HCL 50 MG TABLET (FP) PO SCH (09:30)
[2021-10-31] MEDS: CLOPIDOGREL BISULFATE 75 MG TABLET (FP) PO SCH (09:30)
[2021-10-31] MEDS: SOLIFENACIN SUCCINATE 5 MG TAB PO SCH (09:30)
[2021-10-31] MEDS: CYANOCOBALAMIN 1,000 MCG TABLET (FP) PO SCH (09:31)
[2021-10-31] MEDS: ACETAMINOPHEN 325 MG TABLET (FP) PO PRN (09:31)
[2021-10-31] MEDS: PREGABALIN 50 MG CAPSULE PO SCH ×2 (09:31→21:06)
[2021-10-31] MEDS: POLYETHYLENE GLYCOL (HEALTHYLAX) 3350 17 GM PACKET PO SCH ×2 (09:32→21:07)
[2021-10-31] MEDS ORDERED: DEXTROSE 5%-NORMAL SALINE 1,000 ML IV SCH (11:00)
[2021-10-31] MEDS: TAMSULOSIN HCL 0.4 MG CAP PO SCH (21:05)
[2021-10-31] MEDS: ATORVASTATIN CA 20 MG TABLET (FP) PO SCH (21:06)
[2021-11-01] MEDS: oxyCODONE HCL 5 MG TABLET PO PRN ×3 (04:05→22:01)
[2021-11-01] MEDS: DOCUSATE SODIUM 100 MG CAPSULE (FP) PO SCH ×3 (06:17→21:54)
[2021-11-01] MEDS: LEVOTHYROXINE NA 25 MCG TABLET (FP) PO SCH (06:17)
[2021-11-01] MEDS: ACETAMINOPHEN 325 MG TABLET (FP) PO PRN (06:54)
[2021-11-01] MEDS: POLYETHYLENE GLYCOL (HEALTHYLAX) 3350 17 GM PACKET PO SCH (10:14)
[2021-11-01] MEDS: SOLIFENACIN SUCCINATE 5 MG TAB PO SCH (10:14)
[2021-11-01] MEDS: ASPIRIN 81 MG CHEWABLE TABLETS PO SCH (10:14)
[2021-11-01] MEDS: CLOPIDOGREL BISULFATE 75 MG TABLET (FP) PO SCH (10:14)
[2021-11-01] MEDS: SERTRALINE HCL 50 MG TABLET (FP) PO SCH (10:14)
[2021-11-01] MEDS: ENOXAPARIN NA (PORCINE) 40 MG/0.4 ML DISP.SYRIN SQ SCH (10:14)
[2021-11-01] MEDS: PREGABALIN 50 MG CAPSULE PO SCH ×2 (10:14→22:00)
[2021-11-01] MEDS: CYANOCOBALAMIN 1,000 MCG TABLET (FP) PO SCH (10:15)
[2021-11-01] MEDS: PATIENT'S OWN MEDICATION (NON-FORMULARY) (Mirabegron [Myrbetriq] 25 MG Tab.Er.24h) PO SCH (16:51)
[2021-11-01] MEDS: ATORVASTATIN CA 20 MG TABLET (FP) PO SCH (21:53)
[2021-11-01] MEDS: TAMSULOSIN HCL 0.4 MG CAP PO SCH (21:54)
[2021-11-02] MEDS: POLYETHYLENE GLYCOL (HEALTHYLAX) 3350 17 GM PACKET PO SCH ×3 (01:37→21:17)
[2021-11-02] MEDS: PREGABALIN 50 MG CAPSULE PO SCH ×3 (01:38→21:16)
[2021-11-02] MEDS: oxyCODONE HCL 5 MG TABLET PO PRN ×3 (05:51→18:03)
[2021-11-02] MEDS: DOCUSATE SODIUM 100 MG CAPSULE (FP) PO SCH ×3 (05:53→21:17)
[2021-11-02] MEDS: LEVOTHYROXINE NA 25 MCG TABLET (FP) PO SCH (06:36)
[2021-11-02] MEDS: ENOXAPARIN NA (PORCINE) 40 MG/0.4 ML DISP.SYRIN SQ SCH (10:15)
[2021-11-02] MEDS: ASPIRIN 81 MG CHEWABLE TABLETS PO SCH (10:16)
[2021-11-02] MEDS: SERTRALINE HCL 50 MG TABLET (FP) PO SCH (10:16)
[2021-11-02] MEDS: CYANOCOBALAMIN 1,000 MCG TABLET (FP) PO SCH (10:16)
[2021-11-02] MEDS: CLOPIDOGREL BISULFATE 75 MG TABLET (FP) PO SCH (10:16)
[2021-11-02] MEDS: SOLIFENACIN SUCCINATE 5 MG TAB PO SCH (10:16)
[2021-11-02] MEDS: ACETAMINOPHEN 325 MG TABLET (FP) PO PRN (20:00)
[2021-11-02] MEDS: ATORVASTATIN CA 20 MG TABLET (FP) PO SCH (21:16)
[2021-11-02] MEDS: TAMSULOSIN HCL 0.4 MG CAP PO SCH (21:16)
[2021-11-03] MEDS: oxyCODONE HCL 5 MG TABLET PO PRN ×4 (00:04→21:53)
[2021-11-03] MEDS: LEVOTHYROXINE NA 25 MCG TABLET (FP) PO SCH (06:21)
[2021-11-03] MEDS: DOCUSATE SODIUM 100 MG CAPSULE (FP) PO SCH ×3 (06:26→21:55)
[2021-11-03] MEDS: CLOPIDOGREL BISULFATE 75 MG TABLET (FP) PO SCH (09:00)
[2021-11-03] MEDS: SOLIFENACIN SUCCINATE 5 MG TAB PO SCH (09:00)
[2021-11-03] MEDS: ENOXAPARIN NA (PORCINE) 40 MG/0.4 ML DISP.SYRIN SQ SCH (09:00)
[2021-11-03] MEDS: POLYETHYLENE GLYCOL (HEALTHYLAX) 3350 17 GM PACKET PO SCH ×2 (09:00→21:54)
[2021-11-03] MEDS: ASPIRIN 81 MG CHEWABLE TABLETS PO SCH (09:00)
[2021-11-03] MEDS: PREGABALIN 50 MG CAPSULE PO SCH ×2 (09:03→21:54)
[2021-11-03] MEDS: CYANOCOBALAMIN 1,000 MCG TABLET (FP) PO SCH (09:03)
[2021-11-03] MEDS: SERTRALINE HCL 50 MG TABLET (FP) PO SCH (09:07)
[2021-11-03] MEDS: ACETAMINOPHEN 325 MG TABLET (FP) PO PRN (16:08)
[2021-11-03] MEDS: TAMSULOSIN HCL 0.4 MG CAP PO SCH (21:54)
[2021-11-03] MEDS: ATORVASTATIN CA 20 MG TABLET (FP) PO SCH (21:54)
[2021-11-04] MEDS: oxyCODONE HCL 5 MG TABLET PO PRN ×4 (04:03→22:18)
[2021-11-04] MEDS: DOCUSATE SODIUM 100 MG CAPSULE (FP) PO SCH ×3 (06:33→21:22)
[2021-11-04] MEDS: LEVOTHYROXINE NA 25 MCG TABLET (FP) PO SCH (06:33)
[2021-11-04] MEDS: SOLIFENACIN SUCCINATE 5 MG TAB PO SCH (09:51)
[2021-11-04] MEDS: SERTRALINE HCL 50 MG TABLET (FP) PO SCH (09:51)
[2021-11-04] MEDS: PREGABALIN 50 MG CAPSULE PO SCH ×2 (09:51→21:21)
[2021-11-04] MEDS: ASPIRIN 81 MG CHEWABLE TABLETS PO SCH (09:52)
[2021-11-04] MEDS: CLOPIDOGREL BISULFATE 75 MG TABLET (FP) PO SCH (09:52)
[2021-11-04] MEDS: ENOXAPARIN NA (PORCINE) 40 MG/0.4 ML DISP.SYRIN SQ SCH (09:53)
[2021-11-04] MEDS: POLYETHYLENE GLYCOL (HEALTHYLAX) 3350 17 GM PACKET PO SCH ×2 (09:53→21:22)
[2021-11-04] MEDS: CYANOCOBALAMIN 1,000 MCG TABLET (FP) PO SCH (09:54)
[2021-11-04] MEDS: ATORVASTATIN CA 20 MG TABLET (FP) PO SCH (21:22)
[2021-11-04] MEDS: TAMSULOSIN HCL 0.4 MG CAP PO SCH (21:22)
[2021-11-05] MEDS: oxyCODONE HCL 5 MG TABLET PO PRN ×2 (06:06→12:25)
[2021-11-05] MEDS: LEVOTHYROXINE NA 25 MCG TABLET (FP) PO SCH (06:07)
[2021-11-05] MEDS: DOCUSATE SODIUM 100 MG CAPSULE (FP) PO SCH ×2 (06:07→15:40)
[2021-11-05] MEDS: SOLIFENACIN SUCCINATE 5 MG TAB PO SCH (10:36)
[2021-11-05] MEDS: PREGABALIN 50 MG CAPSULE PO SCH (10:37)
[2021-11-05] MEDS: POLYETHYLENE GLYCOL (HEALTHYLAX) 3350 17 GM PACKET PO SCH (10:37)
[2021-11-05] MEDS: ENOXAPARIN NA (PORCINE) 40 MG/0.4 ML DISP.SYRIN SQ SCH (10:37)
[2021-11-05] MEDS: CLOPIDOGREL BISULFATE 75 MG TABLET (FP) PO SCH (10:37)
[2021-11-05] MEDS: ASPIRIN 81 MG CHEWABLE TABLETS PO SCH (10:37)
[2021-11-05] MEDS: SERTRALINE HCL 50 MG TABLET (FP) PO SCH (10:37)
[2021-11-05] MEDS: CYANOCOBALAMIN 1,000 MCG TABLET (FP) PO SCH (10:37)
[2021-11-05 14:11] VITALS: BP 104/56; PULSE 70; RESP 20; TEMP 97.7
== END 2021-11-05 17:11 ==
LOC: JER 20:10 → JERBED 23:56 → J6S 10-29 19:51
PROVIDERS: ADMIT Hospitalist; ATTEND Family Medicine
PROC: BD11YZZ Fluoroscopy of Esophagus using Other Contrast (ICD-10-PCS; principal; 2021-10-28)
PROC: 3E033NZ Introduction of Analgesics, Hypnotics, Sedatives into Peripheral Vein, Percutaneous Approach (ICD-10-PCS; 2021-10-28)
PROC: 3E0337Z Introduction of Electrolytic and Water Balance Substance into Peripheral Vein, Percutaneous Approach (ICD-10-PCS; 2021-10-28)
DX: E87.1 Hypo-osmolality and hyponatremia (principal); N40.0 Benign prostatic hyperplasia without lower urinary tract symptoms; C14.0 Malignant neoplasm of pharynx, unspecified; I69.398 Other sequelae of cerebral infarction; R53.1 Weakness; R06.3 Periodic breathing; F31.9 Bipolar disorder, unspecified; F17.200 Nicotine dependence, unspecified, uncomplicated; B19.20 Unspecified viral hepatitis C without hepatic coma; Z87.438 Personal history of other diseases of male genital organs
CPT/HCPCS: 36415; 71045-TC-FY; 74220-TC-FY; 74230-TC-FY; 80048; 80053; 82728; 83540; 83550; 83735; 83930; 84100; 84484; 85025; 86704; 87340; 87517; 92611-GN; 93005; 93010; 96361; 96374; 97116-GP; 97161-GP; 99285-25; C9803-CS; G0378; U0003; U0005

== ENCOUNTER 2021-11-13 09:06 | Emergency (ER) | payer OTHER ==
[2021-11-13 09:57] VITALS: RESP 18; BMI 19.5
[2021-11-13 10:42] LABS: HEMOGLOBIN 11.8 GM/dL (11.7-16.9); MCH 31.4 pg (25.7-33.7); MCHC 35.7 g/dl (32.0-35.9); MEAN PLT VOLUME 8.1 fl (7.5-11.1); PLATELET COUNT 170 10^3/uL (134-434); RBC 3.75 M/mm3 (4.00-5.60); RDW 14.4 % (11.9-15.9); WHITE BLOOD COUNT 4.6 K/mm3 (4.0-10.0)
[2021-11-13 10:44] LABS: PH,URINE 6.5 (5.0-8.0); URINE APPEARANCE CLEAR; URINE BILIRUBIN NEGATIVE (NEGATIVE); URINE COLOR YELLOW; URINE GLUCOSE (UA) NEGATIVE (NEGATIVE); URINE KETONE NEGATIVE (NEGATIVE); URINE LEUK ESTERASE NEGATIVE (NEGATIVE); URINE NITRITE NEGATIVE (NEGATIVE); URINE PROTEIN NEGATIVE (NEGATIVE); URINE UROBILINOGEN 0.2 mg/dL (0.2-1.0)
[2021-11-13 10:50] LABS: INR 1.03 (0.83-1.09); PROTHROMBIN TIME (PATIENT) 11.9 SEC (9.7-13.0)
[2021-11-13 11:22] LABS: ALBUMIN 3.5 g/dl (3.4-5.0); CALCIUM 8.6 mg/dL (8.5-10.1)
[2021-11-13 11:23] LABS: BLOOD UREA NITROGEN 12.2 mg/dL (7-18); MAGNESIUM 1.8 mg/dL (1.8-2.4)
[2021-11-13 11:26] LABS: CREATININE 0.8 mg/dL (0.55-1.3)
[2021-11-13 11:27] LABS: BILIRUBIN,TOTAL 1.2 mg/dL (0.2-1); TOT PROT 6.6 g/dl (6.4-8.2)
[2021-11-13] MEDS ORDERED: SODIUM CHLORIDE 0.9% 500 ML INFUS.BAG IV ONE (11:37)
[2021-11-13 11:44] LABS: ANISOCYTOSIS 0; HELMET CELLS 0; HOWELL-JOLLY BODIES 0; MACROCYTOSIS 0; OVALOCYTE 0; ROULEAU 0; SICKELED CELLS 0; TARGET CELLS 0; TEAR DROP CELLS 0; TOXIC GRANULATION 0
[2021-11-13] MEDS ORDERED: Methylnaltrexone Bromide 12 MG/0.6 ML KIT SQ ONE (13:50)
[2021-11-13 17:30] VITALS: BP 119/63; PULSE 62; TEMP 98.1
== END 2021-11-13 17:30 | disposition home or self-care (01) ==
LOC: JER 09:06
PROC: 3E023GC Introduction of Other Therapeutic Substance into Muscle, Percutaneous Approach (ICD-10-PCS; principal; 2021-11-13)
DX: K59.03 Drug induced constipation (principal)
CPT/HCPCS: 36415; 71045-TC-FY; 74177-TC; 80053; 81003; 83605; 83690; 83735; 85025; 85610; 85730; 86850; 86900; 86901; 87086; 93005; 93010; 96372; 99285-25; C9803-CS; Q9967; U0003; U0005

== ENCOUNTER 2021-11-28 13:18 | Emergency (ER) | payer OTHER ==
[2021-11-28 13:33] VITALS: RESP 18; TEMP 98.8; BMI 20.5
[2021-11-28] MEDS ORDERED: Methylnaltrexone Bromide 12 MG/0.6 ML KIT SQ ONE (14:12)
[2021-11-28 16:52] VITALS: BP 127/54; PULSE 65
== END 2021-11-28 16:57 | disposition home or self-care (01) ==
LOC: JER 13:18
DX: K59.03 Drug induced constipation (principal)
CPT/HCPCS: 99283-25

== ENCOUNTER 2022-02-13 06:29 | Inpatient (IN) | payer OTHER ==
[2022-02-13] MEDS ORDERED: ACETAMINOPHEN 1000 MG/100 ML BAG IVPB ONE (06:44)
[2022-02-13 06:47] VITALS: BMI 21.7
[2022-02-13] MEDS ORDERED: ACETAMINOPHEN INJECTION 100 ML IVPB ONE (06:51)
[2022-02-13] MEDS ORDERED: PIPERACILLIN/TAZOB 4.5 GM 4.5 GM in DEXTROSE 5%-WATER 100 ML IVPB ONE (07:16)
[2022-02-13] MEDS ORDERED: VANCOMYCIN 1 GM in D5W (PRE-DOCKED) 1,000 MG/250 ML IVPB ONE (07:16)
[2022-02-13 07:17] LABS: VENOUS BASE EXCESS 4.7 mmol/L (-2-2); VENOUS O2 SATURATION 95.9 % (70-80); VENOUS PCO2 54.3 mmHg (38-52); VENOUS PH 7.372 (7.310-7.410)
[2022-02-13 07:22] LABS: HEMATOCRIT 26.3 % (35.4-49); HEMOGLOBIN 8.9 GM/dL (11.7-16.9); MCH 30.7 pg (25.7-33.7); MCHC 33.7 g/dl (32.0-35.9); MEAN PLT VOLUME 7.5 fl (7.5-11.1); PLATELET COUNT 253 10^3/uL (134-434); RBC 2.89 M/mm3 (4.00-5.60); RDW 18.1 % (11.9-15.9); WHITE BLOOD COUNT 11.8 K/mm3 (4.0-10.0)
[2022-02-13 07:25] LABS: CHLORIDE 103 mmol/L (98-107); SODIUM 138 mmol/L (136-145)
[2022-02-13 07:27] LABS: CALCIUM 7.5 mg/dL (8.5-10.1); INR 1.17 (0.83-1.09); PROTHROMBIN TIME (PATIENT) 13.5 SEC (9.7-13.0)
[2022-02-13 07:28] LABS: ALBUMIN 1.8 g/dl (3.4-5.0); ANION GAP 5 MMOL/L (8-16); BLOOD UREA NITROGEN 18.8 mg/dL (7-18); CO2 31 mmol/L (21-32); GLUCOSE,RANDOM 166 mg/dL (74-106)
[2022-02-13 07:30] LABS: ACTIVATED PTT 28.7 SECONDS (25.2-36.5)
[2022-02-13 07:31] LABS: CREATININE 0.5 mg/dL (0.55-1.3); SGOT/AST 18 U/L (15-37); SGPT/ALT 19 U/L (13-61)
[2022-02-13 07:32] LABS: BILIRUBIN,TOTAL 0.7 mg/dL (0.2-1); TOT PROT 5.9 g/dl (6.4-8.2)
[2022-02-13 07:35] LABS: ALK PHOS 145 U/L (45-117)
[2022-02-13] MEDS ORDERED: PIPERACILLIN/TAZOB 4.5 GM 4.5 GM/100 ML BAG IVPB ONE (07:50)
[2022-02-13] MEDS ORDERED: VANCOMYCIN/WATER FOR INJ (PEG) 1,000 MG/200 ML BAG IVPB ONE (07:50)
[2022-02-13 09:09] LABS: ANISOCYTOSIS 0; HELMET CELLS 0; HOWELL-JOLLY BODIES 0; MACROCYTOSIS 0; OVALOCYTE 0; ROULEAU 0; SICKELED CELLS 0; TARGET CELLS 0; TEAR DROP CELLS 0; TOXIC GRANULATION 0
[2022-02-13 09:13] LABS: EPI CELLS >36 /uL (0-25.1); HYALINE CASTS 8 /uL (0-3.1); URINE APPEARANCE CLOUDY; URINE BACTERIA 25 /uL (0-1359); URINE BILIRUBIN NEGATIVE (NEGATIVE); URINE COLOR DK YELLOW; URINE GLUCOSE (UA) NEGATIVE (NEGATIVE); URINE KETONE NEGATIVE (NEGATIVE); URINE LEUK ESTERASE 1+ (NEGATIVE); URINE NITRITE NEGATIVE (NEGATIVE); URINE PROTEIN 1+ (NEGATIVE); URINE WBC 379 /uL (0-25.8)
[2022-02-13 10:03] LABS: URINE RBC 5 /uL (0-23.9); YEAST PRESENT (NEGATIVE)
[2022-02-13] MEDS ORDERED: SODIUM CHLORIDE 0.9% 1000 ML INFUS.BAG IV ONE (10:15)
[2022-02-13] MEDS ORDERED: BISACODYL 10 MG SUPP.RECT RC PRN (14:33)
[2022-02-13] MEDS ORDERED: PIPERACILLIN/TAZOB 3.375 GM 3.375 GM in DEXTROSE 5%-WATER - 50 ML IVPB SCH (18:00)
[2022-02-13] MEDS ORDERED: oxyCODONE HCL 5 MG TABLET GT SCH (18:00)
[2022-02-13] MEDS ORDERED: oxyCODONE HCL 5 MG TABLET ONE (18:59)
[2022-02-13] MEDS ORDERED: PIPERACILLIN/TAZOB 3.375 GM 3.375 GM/50 ML BAG IVPB ONE (18:59)
[2022-02-13] MEDS: PIPERACILLIN/TAZOB 3.375 GM 3.375 GM in DEXTROSE 5%-WATER - 50 ML IVPB SCH (20:01)
[2022-02-13] MEDS ORDERED: [UNRECOGNIZED DRUG - OTHER] GT SCH (22:00)
[2022-02-13] MEDS ORDERED: PREGABALIN GT SCH (22:00)
[2022-02-13] MEDS: ATORVASTATIN CA 10 MG TABLET (FP) PO SCH (22:48)
[2022-02-13] MEDS: MIRTAZAPINE 15 MG TABLET (FP) GT SCH (22:48)
[2022-02-13] MEDS: HEPARIN NA (PORCINE) 5,000 UNITS/ML 1ML VIAL SQ SCH (22:48)
[2022-02-13] MEDS: FAMOTIDINE 40 MG/5 ML ORAL SUSPENSION GT SCH (23:34)
[2022-02-14] MEDS: PIPERACILLIN/TAZOB 3.375 GM 3.375 GM in DEXTROSE 5%-WATER - 50 ML IVPB SCH ×3 (02:02→20:36)
[2022-02-14] MEDS ORDERED: oxyCODONE HCL 5 MG TABLET GT ONE (04:48)
[2022-02-14] MEDS: LEVOTHYROXINE NA 25 MCG TABLET (FP) PO SCH (06:07)
[2022-02-14 11:34] LABS: BASO % 0.2 % (0-2.0); EOS % 0.1 % (0-4.5); HEMATOCRIT 21.6 % (35.4-49); HEMOGLOBIN 7.2 GM/dL (11.7-16.9); LYMPH % 3.2 % (8-40); MCH 30.1 pg (25.7-33.7); MCHC 33.3 g/dl (32.0-35.9); MEAN CELL VOLUME 90.6 fl (80-96); MEAN PLT VOLUME 7.9 fl (7.5-11.1); MONO % 8.5 % (3.8-10.2); PLATELET COUNT 203 10^3/uL (134-434); RBC 2.39 M/mm3 (4.00-5.60); RDW 17.9 % (11.9-15.9)
[2022-02-14] MEDS: HEPARIN NA (PORCINE) 5,000 UNITS/ML 1ML VIAL SQ SCH ×2 (12:06→22:07)
[2022-02-14] MEDS: CLOPIDOGREL BISULFATE 75 MG TABLET (FP) PO SCH (12:06)
[2022-02-14] MEDS: FOLIC ACID 1 MG TABLET (FP) GT SCH (12:06)
[2022-02-14] MEDS: SERTRALINE HCL 50 MG TABLET (FP) GT SCH (12:06)
[2022-02-14 12:07] LABS: ALBUMIN 1.5 g/dl (3.4-5.0); BLOOD UREA NITROGEN 15.9 mg/dL (7-18); CALCIUM 7.8 mg/dL (8.5-10.1)
[2022-02-14] MEDS: FAMOTIDINE 40 MG/5 ML ORAL SUSPENSION GT SCH ×2 (12:07→22:08)
[2022-02-14 12:10] LABS: CREATININE 0.3 mg/dL (0.55-1.3)
[2022-02-14 12:11] LABS: BILIRUBIN,TOTAL 0.8 mg/dL (0.2-1)
[2022-02-14 12:12] LABS: TOT PROT 5.1 g/dl (6.4-8.2)
[2022-02-14] MEDS ORDERED: FUROSEMIDE 40 MG/4 ML INJECTABLE VIAL IVPUSH ONE ×2 (13:32→19:15)
[2022-02-14 15:12] LABS: TOTAL IRON BINDING CAPACITY 125 ug/dL (250-450)
[2022-02-14 15:31] LABS: IRON SERUM 9 ug/dL (50-175)
[2022-02-14] MEDS: oxyCODONE HCL 5 MG TABLET PEG PRN ×2 (16:06→22:11)
[2022-02-14] MEDS ORDERED: IRON SUCROSE INJECTION 200 MG in SODIUM CHLORIDE 90 ML IVPB ONE (18:15)
[2022-02-14] MEDS ORDERED: POLYETHYLENE GLYCOL (HEALTHYLAX) 3350 17 GM PACKET PO SCH (22:00)
[2022-02-14] MEDS: POLYETHYLENE GLYCOL (HEALTHYLAX) 3350 17 GM PACKET GT SCH (22:07)
[2022-02-14] MEDS: ATORVASTATIN CA 10 MG TABLET (FP) PO SCH (22:08)
[2022-02-14] MEDS: MIRTAZAPINE 15 MG TABLET (FP) GT SCH (22:08)
[2022-02-15] MEDS: PIPERACILLIN/TAZOB 3.375 GM 3.375 GM in DEXTROSE 5%-WATER - 50 ML IVPB SCH ×3 (01:20→17:49)
[2022-02-15] MEDS: LEVOTHYROXINE NA 25 MCG TABLET (FP) PO SCH (06:39)
[2022-02-15] MEDS: POLYETHYLENE GLYCOL (HEALTHYLAX) 3350 17 GM PACKET GT SCH ×3 (06:39→22:38)
[2022-02-15] MEDS: oxyCODONE HCL 5 MG TABLET PEG PRN ×2 (06:59→13:31)
[2022-02-15] MEDS ORDERED: IRON SUCROSE INJECTION 200 MG in SODIUM CHLORIDE 90 ML IVPB ONE (10:00)
[2022-02-15] MEDS: FAMOTIDINE 40 MG/5 ML ORAL SUSPENSION GT SCH ×2 (10:52→22:38)
[2022-02-15] MEDS: CLOPIDOGREL BISULFATE 75 MG TABLET (FP) PO SCH (10:53)
[2022-02-15] MEDS: SERTRALINE HCL 50 MG TABLET (FP) GT SCH (10:53)
[2022-02-15] MEDS: HEPARIN NA (PORCINE) 5,000 UNITS/ML 1ML VIAL SQ SCH ×2 (10:53→22:38)
[2022-02-15] MEDS: FOLIC ACID 1 MG TABLET (FP) GT SCH (10:53)
[2022-02-15 11:40] LABS: BASO % 0.2 % (0-2.0); EOS % 0.2 % (0-4.5); HEMATOCRIT 22.8 % (35.4-49); HEMOGLOBIN 7.7 GM/dL (11.7-16.9); LYMPH % 3.9 % (8-40); MCH 30.5 pg (25.7-33.7); MCHC 33.6 g/dl (32.0-35.9); MEAN CELL VOLUME 90.8 fl (80-96); MEAN PLT VOLUME 7.4 fl (7.5-11.1); MONO % 11.2 % (3.8-10.2); NEUT % 84.5 % (42.8-82.8); PLATELET COUNT 200 10^3/uL (134-434); RBC 2.51 M/mm3 (4.00-5.60); RDW 16.8 % (11.9-15.9); WHITE BLOOD COUNT 5.8 K/mm3 (4.0-10.0)
[2022-02-15] MEDS ORDERED: ACETAMINOPHEN 325 MG TABLET (FP) PO PRN (17:27)
[2022-02-15] MEDS: ATORVASTATIN CA 10 MG TABLET (FP) PO SCH (22:38)
[2022-02-15] MEDS: MIRTAZAPINE 15 MG TABLET (FP) GT SCH (22:38)
[2022-02-16] MEDS: PIPERACILLIN/TAZOB 3.375 GM 3.375 GM in DEXTROSE 5%-WATER - 50 ML IVPB SCH ×3 (01:51→17:20)
[2022-02-16] MEDS: POLYETHYLENE GLYCOL (HEALTHYLAX) 3350 17 GM PACKET GT SCH ×3 (05:44→22:12)
[2022-02-16] MEDS: LEVOTHYROXINE NA 25 MCG TABLET (FP) PO SCH (06:23)
[2022-02-16] MEDS: oxyCODONE HCL 5 MG TABLET PEG PRN ×2 (06:51→17:19)
[2022-02-16] MEDS ORDERED: IRON SUCROSE INJECTION 200 MG in SODIUM CHLORIDE 90 ML IVPB ONE (10:00)
[2022-02-16] MEDS: CLOPIDOGREL BISULFATE 75 MG TABLET (FP) PO SCH (10:14)
[2022-02-16] MEDS: HEPARIN NA (PORCINE) 5,000 UNITS/ML 1ML VIAL SQ SCH ×2 (10:14→22:13)
[2022-02-16] MEDS: FOLIC ACID 1 MG TABLET (FP) GT SCH (10:14)
[2022-02-16] MEDS: SERTRALINE HCL 50 MG TABLET (FP) GT SCH (10:14)
[2022-02-16] MEDS: FAMOTIDINE 40 MG/5 ML ORAL SUSPENSION GT SCH ×2 (10:14→22:13)
[2022-02-16 10:35] LABS: BASO % 0.4 % (0-2.0); EOS % 0.2 % (0-4.5); HEMATOCRIT 28.5 % (35.4-49); HEMOGLOBIN 9.7 GM/dL (11.7-16.9); LYMPH % 3.8 % (8-40); MCH 30.7 pg (25.7-33.7); MCHC 34.1 g/dl (32.0-35.9); MEAN CELL VOLUME 90.1 fl (80-96); MEAN PLT VOLUME 7.4 fl (7.5-11.1); MONO % 9.2 % (3.8-10.2); NEUT % 86.4 % (42.8-82.8); PLATELET COUNT 218 10^3/uL (134-434); RBC 3.17 M/mm3 (4.00-5.60); WHITE BLOOD COUNT 4.8 K/mm3 (4.0-10.0)
[2022-02-16 10:56] LABS: CALCIUM 8.3 mg/dL (8.5-10.1)
[2022-02-16 10:57] LABS: ALBUMIN 1.6 g/dl (3.4-5.0)
[2022-02-16 10:59] LABS: BLOOD UREA NITROGEN 14.7 mg/dL (7-18)
[2022-02-16 11:02] LABS: CREATININE 0.3 mg/dL (0.55-1.3)
[2022-02-16 11:04] LABS: BILIRUBIN,TOTAL 1.9 mg/dL (0.2-1); TOT PROT 5.3 g/dl (6.4-8.2)
[2022-02-16] MEDS: ACETAMINOPHEN 650 MG/20.3 ML ORAL SOLUTION (CUPS) GT PRN (11:31)
[2022-02-16] MEDS: ATORVASTATIN CA 10 MG TABLET (FP) PO SCH (22:13)
[2022-02-16] MEDS: MIRTAZAPINE 15 MG TABLET (FP) GT SCH (22:13)
[2022-02-17] MEDS: PIPERACILLIN/TAZOB 3.375 GM 3.375 GM in DEXTROSE 5%-WATER - 50 ML IVPB SCH ×3 (02:03→17:38)
[2022-02-17] MEDS: POLYETHYLENE GLYCOL (HEALTHYLAX) 3350 17 GM PACKET GT SCH ×3 (06:40→21:02)
[2022-02-17] MEDS: LEVOTHYROXINE NA 25 MCG TABLET (FP) PO SCH (06:40)
[2022-02-17] MEDS: FOLIC ACID 1 MG TABLET (FP) GT SCH (10:03)
[2022-02-17] MEDS: CLOPIDOGREL BISULFATE 75 MG TABLET (FP) PO SCH (10:03)
[2022-02-17] MEDS: SERTRALINE HCL 50 MG TABLET (FP) GT SCH (10:03)
[2022-02-17] MEDS: FAMOTIDINE 40 MG/5 ML ORAL SUSPENSION GT SCH ×2 (10:04→21:01)
[2022-02-17] MEDS: HEPARIN NA (PORCINE) 5,000 UNITS/ML 1ML VIAL SQ SCH ×2 (10:04→21:02)
[2022-02-17] MEDS: ACETAMINOPHEN 650 MG/20.3 ML ORAL SOLUTION (CUPS) GT PRN (10:35)
[2022-02-17 12:57] LABS: HEMATOCRIT 30.4 % (35.4-49); HEMOGLOBIN 10.1 GM/dL (11.7-16.9); MCH 29.8 pg (25.7-33.7); MCHC 33.2 g/dl (32.0-35.9); MEAN CELL VOLUME 89.7 fl (80-96); MEAN PLT VOLUME 7.3 fl (7.5-11.1); PLATELET COUNT 278 10^3/uL (134-434); RBC 3.39 M/mm3 (4.00-5.60); RDW 16.4 % (11.9-15.9); WHITE BLOOD COUNT 3.9 K/mm3 (4.0-10.0)
[2022-02-17 13:18] LABS: CALCIUM 8.3 mg/dL (8.5-10.1)
[2022-02-17 13:19] LABS: ALBUMIN 1.6 g/dl (3.4-5.0)
[2022-02-17 13:22] LABS: CREATININE 0.3 mg/dL (0.55-1.3)
[2022-02-17 13:24] LABS: BILIRUBIN,TOTAL 1.2 mg/dL (0.2-1); TOT PROT 5.5 g/dl (6.4-8.2)
[2022-02-17 13:35] LABS: ANISOCYTOSIS 1+; MACROCYTOSIS 0
[2022-02-17] MEDS ORDERED: MELATONIN 1 MG TABLET PO ONE (17:41)
[2022-02-17] MEDS ORDERED: oxyCODONE HCL 5 MG TABLET PEG PRN (18:17)
[2022-02-17] MEDS: MEROPENEM 1 GM in DEXTROSE 5%-WATER 100 ML IVPB SCH (19:48)
[2022-02-17] MEDS: MIRTAZAPINE 15 MG TABLET (FP) GT SCH (21:01)
[2022-02-17] MEDS: ATORVASTATIN CA 10 MG TABLET (FP) PO SCH (21:01)
[2022-02-17] MEDS: KCL 10 MEQ IVPB 10 MEQ/100 ML INFUS.BAG IVPB SCH (23:47)
[2022-02-18] MEDS: KCL 10 MEQ IVPB 10 MEQ/100 ML INFUS.BAG IVPB SCH ×2 (00:54→01:59)
[2022-02-18] MEDS: MEROPENEM 1 GM in DEXTROSE 5%-WATER 100 ML IVPB SCH ×3 (03:04→17:30)
[2022-02-18] MEDS: AMINO ACIDS 4.25%/D5W 1,000 ML IV SCH (05:57)
[2022-02-18] MEDS: LEVOTHYROXINE NA 25 MCG TABLET (FP) PO SCH (06:03)
[2022-02-18] MEDS: POLYETHYLENE GLYCOL (HEALTHYLAX) 3350 17 GM PACKET GT SCH ×3 (06:03→22:27)
[2022-02-18 10:39] LABS: BASO % 0.3 % (0-2.0); EOS % 0.8 % (0-4.5); HEMATOCRIT 31.3 % (35.4-49); HEMOGLOBIN 10.4 GM/dL (11.7-16.9); LYMPH % 4.8 % (8-40); MCH 29.8 pg (25.7-33.7); MCHC 33.3 g/dl (32.0-35.9); MEAN CELL VOLUME 89.6 fl (80-96); MEAN PLT VOLUME 7.3 fl (7.5-11.1); MONO % 7.5 % (3.8-10.2); NEUT % 86.6 % (42.8-82.8); PLATELET COUNT 303 10^3/uL (134-434); RBC 3.49 M/mm3 (4.00-5.60); RDW 16.4 % (11.9-15.9); WHITE BLOOD COUNT 4.9 K/mm3 (4.0-10.0)
[2022-02-18] MEDS: SERTRALINE HCL 50 MG TABLET (FP) GT SCH (10:50)
[2022-02-18] MEDS: HEPARIN NA (PORCINE) 5,000 UNITS/ML 1ML VIAL SQ SCH ×2 (10:50→22:27)
[2022-02-18] MEDS: FOLIC ACID 1 MG TABLET (FP) GT SCH (10:50)
[2022-02-18] MEDS: CLOPIDOGREL BISULFATE 75 MG TABLET (FP) PO SCH (10:51)
[2022-02-18] MEDS: FAMOTIDINE 40 MG/5 ML ORAL SUSPENSION GT SCH ×2 (10:51→22:31)
[2022-02-18 11:03] LABS: ALBUMIN 1.7 g/dl (3.4-5.0); CALCIUM 8.1 mg/dL (8.5-10.1)
[2022-02-18 11:04] LABS: BLOOD UREA NITROGEN 12.8 mg/dL (7-18)
[2022-02-18 11:07] LABS: CREATININE 0.3 mg/dL (0.55-1.3)
[2022-02-18 11:08] LABS: BILIRUBIN,TOTAL 0.7 mg/dL (0.2-1); TOT PROT 5.7 g/dl (6.4-8.2)
[2022-02-18 11:20] LABS: ANISOCYTOSIS 0; HELMET CELLS 0; HOWELL-JOLLY BODIES 0; MACROCYTOSIS 0; OVALOCYTE 0; ROULEAU 0; SICKELED CELLS 0; TARGET CELLS 0; TEAR DROP CELLS 0; TOXIC GRANULATION 0
[2022-02-18] MEDS: oxyCODONE HCL 5 MG TABLET GT PRN ×2 (13:32→20:56)
[2022-02-18] MEDS: LOSARTAN POTASSIUM 50 MG TABLET GT SCH (13:33)
[2022-02-18] MEDS: MIRTAZAPINE 15 MG TABLET (FP) GT SCH (22:27)
[2022-02-18] MEDS: ATORVASTATIN CA 10 MG TABLET (FP) PO SCH (22:27)
[2022-02-19] MEDS: MEROPENEM 1 GM in DEXTROSE 5%-WATER 100 ML IVPB SCH ×3 (02:50→18:00)
[2022-02-19] MEDS: LEVOTHYROXINE NA 25 MCG TABLET (FP) PO SCH (06:08)
[2022-02-19] MEDS: POLYETHYLENE GLYCOL (HEALTHYLAX) 3350 17 GM PACKET GT SCH ×3 (06:08→22:29)
[2022-02-19] MEDS: AMINO ACIDS 4.25%/D5W 1,000 ML IV SCH (06:09)
[2022-02-19] MEDS: LOSARTAN POTASSIUM 50 MG TABLET GT SCH (10:42)
[2022-02-19] MEDS: FAMOTIDINE 40 MG/5 ML ORAL SUSPENSION GT SCH ×2 (10:42→22:31)
[2022-02-19] MEDS: CLOPIDOGREL BISULFATE 75 MG TABLET (FP) PO SCH (10:42)
[2022-02-19] MEDS: HEPARIN NA (PORCINE) 5,000 UNITS/ML 1ML VIAL SQ SCH ×2 (10:42→22:29)
[2022-02-19] MEDS: FOLIC ACID 1 MG TABLET (FP) GT SCH (10:42)
[2022-02-19] MEDS: SERTRALINE HCL 50 MG TABLET (FP) GT SCH (10:42)
[2022-02-19] MEDS: oxyCODONE HCL 5 MG TABLET GT PRN ×2 (14:29→23:58)
[2022-02-19 17:55] LABS: CALCIUM 7.7 mg/dL (8.5-10.1)
[2022-02-19 17:56] LABS: ALBUMIN 1.6 g/dl (3.4-5.0); BLOOD UREA NITROGEN 13.5 mg/dL (7-18)
[2022-02-19 17:59] LABS: CREATININE 0.3 mg/dL (0.55-1.3)
[2022-02-19 18:00] LABS: BILIRUBIN,TOTAL 0.4 mg/dL (0.2-1); TOT PROT 5.2 g/dl (6.4-8.2)
[2022-02-19] MEDS: MIRTAZAPINE 15 MG TABLET (FP) GT SCH (22:29)
[2022-02-19] MEDS: ATORVASTATIN CA 10 MG TABLET (FP) PO SCH (22:29)
[2022-02-19] MEDS: KCL 10 MEQ IVPB 10 MEQ/100 ML INFUS.BAG IVPB SCH (23:00)
[2022-02-20] MEDS: KCL 10 MEQ IVPB 10 MEQ/100 ML INFUS.BAG IVPB SCH ×4 (01:05→14:49)
[2022-02-20] MEDS: POTASSIUM CHLORIDE TABS 20 MEQ TABLET.ER (FP) PO SCH ×2 (01:53→10:55)
[2022-02-20] MEDS: MEROPENEM 1 GM in DEXTROSE 5%-WATER 100 ML IVPB SCH ×3 (01:58→18:10)
[2022-02-20] MEDS: AMINO ACIDS 4.25%/D5W 1,000 ML IV SCH (04:14)
[2022-02-20] MEDS: POLYETHYLENE GLYCOL (HEALTHYLAX) 3350 17 GM PACKET GT SCH ×3 (06:13→23:36)
[2022-02-20] MEDS: LEVOTHYROXINE NA 25 MCG TABLET (FP) PO SCH (06:14)
[2022-02-20] MEDS: LOSARTAN POTASSIUM 50 MG TABLET GT SCH (10:33)
[2022-02-20] MEDS: SERTRALINE HCL 50 MG TABLET (FP) GT SCH (10:33)
[2022-02-20] MEDS: FOLIC ACID 1 MG TABLET (FP) GT SCH (10:33)
[2022-02-20] MEDS: FAMOTIDINE 40 MG/5 ML ORAL SUSPENSION GT SCH ×2 (10:34→23:35)
[2022-02-20] MEDS: HEPARIN NA (PORCINE) 5,000 UNITS/ML 1ML VIAL SQ SCH ×2 (10:34→23:34)
[2022-02-20] MEDS: CLOPIDOGREL BISULFATE 75 MG TABLET (FP) PO SCH (10:34)
[2022-02-20 11:56] LABS: BASO % 0.6 % (0-2.0); EOS % 1.1 % (0-4.5); HEMATOCRIT 30.2 % (35.4-49); HEMOGLOBIN 10.2 GM/dL (11.7-16.9); LYMPH % 7.2 % (8-40); MCH 30.2 pg (25.7-33.7); MCHC 33.9 g/dl (32.0-35.9); MEAN CELL VOLUME 89.1 fl (80-96); MEAN PLT VOLUME 7.3 fl (7.5-11.1); MONO % 7.6 % (3.8-10.2); NEUT % 83.5 % (42.8-82.8); PLATELET COUNT 292 10^3/uL (134-434); RBC 3.39 M/mm3 (4.00-5.60); RDW 16.2 % (11.9-15.9); WHITE BLOOD COUNT 4.7 K/mm3 (4.0-10.0)
[2022-02-20 12:21] LABS: BLOOD UREA NITROGEN 12.9 mg/dL (7-18); MAGNESIUM 1.7 mg/dL (1.8-2.4)
[2022-02-20 12:22] LABS: ALBUMIN 1.6 g/dl (3.4-5.0)
[2022-02-20 12:24] LABS: CREATININE 0.2 mg/dL (0.55-1.3)
[2022-02-20 12:26] LABS: BILIRUBIN,TOTAL 0.4 mg/dL (0.2-1)
[2022-02-20] MEDS: oxyCODONE HCL 5 MG TABLET GT PRN (15:58)
[2022-02-20] MEDS: MIRTAZAPINE 15 MG TABLET (FP) GT SCH (23:35)
[2022-02-20] MEDS: ATORVASTATIN CA 10 MG TABLET (FP) PO SCH (23:36)
[2022-02-21] MEDS ORDERED: ACETAMINOPHEN 1000 MG/100 ML BAG IVPB ONE (00:20)
[2022-02-21] MEDS: MEROPENEM 1 GM in DEXTROSE 5%-WATER 100 ML IVPB SCH ×3 (02:16→20:23)
[2022-02-21] MEDS: POLYETHYLENE GLYCOL (HEALTHYLAX) 3350 17 GM PACKET GT SCH ×3 (05:20→22:18)
[2022-02-21] MEDS: LEVOTHYROXINE NA 25 MCG TABLET (FP) PO SCH (06:05)
[2022-02-21] MEDS ORDERED: LABETALOL HCL 5 MG/1 ML (100MG/20 ML VIAL) IVPUSH ONE (10:38)
[2022-02-21] MEDS: LOSARTAN POTASSIUM 50 MG TABLET GT SCH (11:20)
[2022-02-21] MEDS: FOLIC ACID 1 MG TABLET (FP) GT SCH (11:21)
[2022-02-21] MEDS: SERTRALINE HCL 50 MG TABLET (FP) GT SCH (11:21)
[2022-02-21] MEDS: FAMOTIDINE 40 MG/5 ML ORAL SUSPENSION GT SCH ×2 (11:21→22:33)
[2022-02-21] MEDS: CLOPIDOGREL BISULFATE 75 MG TABLET (FP) PO SCH (11:21)
[2022-02-21] MEDS: AMINO ACIDS 4.25%/D5W 1,000 ML IV SCH (12:56)
[2022-02-21 13:36] LABS: ALBUMIN 1.8 g/dl (3.4-5.0); BLOOD UREA NITROGEN 10.7 mg/dL (7-18); CALCIUM 8.1 mg/dL (8.5-10.1); MAGNESIUM 1.6 mg/dL (1.8-2.4)
[2022-02-21 13:39] LABS: CREATININE 0.3 mg/dL (0.55-1.3); PHOSPHOROUS 1.8 mg/dL (2.5-4.9)
[2022-02-21 13:40] LABS: TOT PROT 5.4 g/dl (6.4-8.2)
[2022-02-21 13:41] LABS: BILIRUBIN,TOTAL 0.4 mg/dL (0.2-1)
[2022-02-21] MEDS ORDERED: MAGNESIUM 2GM/50ML STERILE WATER IVPB IVPB ONE (15:47)
[2022-02-21] MEDS: KCL 10 MEQ IVPB 10 MEQ/100 ML INFUS.BAG IVPB SCH ×3 (16:53→23:48)
[2022-02-21] MEDS: MIRTAZAPINE 15 MG TABLET (FP) GT SCH (22:33)
[2022-02-21] MEDS: ATORVASTATIN CA 10 MG TABLET (FP) PO SCH (22:33)
[2022-02-21] MEDS ORDERED: KCL 10 MEQ IVPB 10 MEQ/100 ML INFUS.BAG IVPB SCH (23:30)
[2022-02-22] MEDS: AMINO ACIDS 4.25%/D5W 1,000 ML IV SCH ×2 (02:30→15:12)
[2022-02-22] MEDS: MEROPENEM 1 GM in DEXTROSE 5%-WATER 100 ML IVPB SCH ×3 (03:26→17:43)
[2022-02-22] MEDS: POLYETHYLENE GLYCOL (HEALTHYLAX) 3350 17 GM PACKET GT SCH ×3 (05:04→21:49)
[2022-02-22] MEDS: LEVOTHYROXINE NA 25 MCG TABLET (FP) PO SCH (06:01)
[2022-02-22] MEDS: FOLIC ACID 1 MG TABLET (FP) GT SCH (10:36)
[2022-02-22] MEDS: LOSARTAN POTASSIUM 50 MG TABLET GT SCH (10:36)
[2022-02-22] MEDS: FAMOTIDINE 40 MG/5 ML ORAL SUSPENSION GT SCH ×2 (10:37→21:49)
[2022-02-22] MEDS: CLOPIDOGREL BISULFATE 75 MG TABLET (FP) PO SCH (10:37)
[2022-02-22] MEDS: SERTRALINE HCL 50 MG TABLET (FP) GT SCH (10:37)
[2022-02-22 14:03] LABS: ALBUMIN 1.9 g/dl (3.4-5.0); CALCIUM 8.3 mg/dL (8.5-10.1)
[2022-02-22 14:04] LABS: BLOOD UREA NITROGEN 11.1 mg/dL (7-18); MAGNESIUM 2.2 mg/dL (1.8-2.4)
[2022-02-22 14:07] LABS: CREATININE 0.3 mg/dL (0.55-1.3)
[2022-02-22 14:08] LABS: BILIRUBIN,TOTAL 0.4 mg/dL (0.2-1)
[2022-02-22 14:09] LABS: TOT PROT 5.6 g/dl (6.4-8.2)
[2022-02-22] MEDS: ACETAMINOPHEN 1000 MG/100 ML BAG IVPB PRN (18:34)
[2022-02-22] MEDS: ATORVASTATIN CA 10 MG TABLET (FP) PO SCH (21:49)
[2022-02-22] MEDS: MIRTAZAPINE 15 MG TABLET (FP) GT SCH (21:50)
[2022-02-23] MEDS: AMINO ACIDS 4.25%/D5W 1,000 ML IV SCH ×3 (00:19→15:28)
[2022-02-23] MEDS: MEROPENEM 1 GM in DEXTROSE 5%-WATER 100 ML IVPB SCH ×4 (03:12→18:58)
[2022-02-23] MEDS: POLYETHYLENE GLYCOL (HEALTHYLAX) 3350 17 GM PACKET GT SCH ×3 (06:22→22:23)
[2022-02-23] MEDS: LEVOTHYROXINE SODIUM 100 MCG 5 ML VIAL IVPUSH SCH (06:22)
[2022-02-23 11:48] LABS: MAGNESIUM 1.8 mg/dL (1.8-2.4)
[2022-02-23 11:52] LABS: PHOSPHOROUS 1.5 mg/dL (2.5-4.9)
[2022-02-23] MEDS: SERTRALINE HCL 50 MG TABLET (FP) GT SCH (12:31)
[2022-02-23] MEDS: FOLIC ACID 1 MG TABLET (FP) GT SCH (12:31)
[2022-02-23] MEDS: LOSARTAN POTASSIUM 50 MG TABLET GT SCH (12:31)
[2022-02-23] MEDS: FAMOTIDINE 40 MG/5 ML ORAL SUSPENSION GT SCH ×2 (12:31→22:23)
[2022-02-23] MEDS ORDERED: FENTANYL CITRATE/PF 50 MCG/ML VIAL ONE (12:50)
[2022-02-23] MEDS: ATORVASTATIN CA 10 MG TABLET (FP) PO SCH (22:23)
[2022-02-23] MEDS: MIRTAZAPINE 15 MG TABLET (FP) GT SCH (22:23)
[2022-02-24] MEDS: ACETAMINOPHEN 1000 MG/100 ML BAG IVPB PRN (01:27)
[2022-02-24] MEDS: AMINO ACIDS 4.25%/D5W 1,000 ML IV SCH ×3 (01:31→12:27)
[2022-02-24] MEDS: MEROPENEM 1 GM in DEXTROSE 5%-WATER 100 ML IVPB SCH ×3 (01:59→19:05)
[2022-02-24] MEDS: LEVOTHYROXINE SODIUM 100 MCG 5 ML VIAL IVPUSH SCH (06:07)
[2022-02-24] MEDS: POLYETHYLENE GLYCOL (HEALTHYLAX) 3350 17 GM PACKET GT SCH ×3 (06:08→21:18)
[2022-02-24] MEDS: LOSARTAN POTASSIUM 50 MG TABLET GT SCH (10:18)
[2022-02-24] MEDS: FAMOTIDINE 40 MG/5 ML ORAL SUSPENSION GT SCH ×2 (10:18→21:20)
[2022-02-24] MEDS: FOLIC ACID 1 MG TABLET (FP) GT SCH (10:18)
[2022-02-24] MEDS: SERTRALINE HCL 50 MG TABLET (FP) GT SCH (10:18)
[2022-02-24] MEDS: CLOPIDOGREL BISULFATE 75 MG TABLET (FP) PO SCH (10:18)
[2022-02-24] MEDS: ACETAMINOPHEN 650 MG/20.3 ML ORAL SOLUTION (CUPS) GT PRN ×2 (10:21→21:20)
[2022-02-24 10:33] LABS: BASO % 0.7 % (0-2.0); EOS % 1.2 % (0-4.5); HEMOGLOBIN 9.9 GM/dL (11.7-16.9); LYMPH % 7.5 % (8-40); MCH 31.1 pg (25.7-33.7); MCHC 34.2 g/dl (32.0-35.9); MEAN CELL VOLUME 90.9 fl (80-96); MONO % 10.6 % (3.8-10.2); PLATELET COUNT 325 10^3/uL (134-434); RBC 3.19 M/mm3 (4.00-5.60); RDW 16.7 % (11.9-15.9); WHITE BLOOD COUNT 5.3 K/mm3 (4.0-10.0)
[2022-02-24 11:10] LABS: CALCIUM 8.2 mg/dL (8.5-10.1)
[2022-02-24 11:11] LABS: ALBUMIN 1.8 g/dl (3.4-5.0); BLOOD UREA NITROGEN 14.4 mg/dL (7-18)
[2022-02-24 11:12] LABS: MAGNESIUM 1.9 mg/dL (1.8-2.4)
[2022-02-24 11:14] LABS: CREATININE 0.2 mg/dL (0.55-1.3)
[2022-02-24 11:15] LABS: BILIRUBIN,TOTAL 0.4 mg/dL (0.2-1); TOT PROT 5.4 g/dl (6.4-8.2)
[2022-02-24] MEDS: ATORVASTATIN CA 10 MG TABLET (FP) PO SCH (21:19)
[2022-02-24] MEDS: MIRTAZAPINE 15 MG TABLET (FP) GT SCH (21:20)
[2022-02-25] MEDS: AMINO ACIDS 4.25%/D5W 1,000 ML IV SCH ×2 (00:13→11:45)
[2022-02-25] MEDS: MEROPENEM 1 GM in DEXTROSE 5%-WATER 100 ML IVPB SCH ×3 (02:13→17:37)
[2022-02-25] MEDS: LEVOTHYROXINE SODIUM 100 MCG 5 ML VIAL IVPUSH SCH (06:20)
[2022-02-25] MEDS: POLYETHYLENE GLYCOL (HEALTHYLAX) 3350 17 GM PACKET GT SCH ×3 (06:25→21:41)
[2022-02-25] MEDS: SERTRALINE HCL 50 MG TABLET (FP) GT SCH (09:16)
[2022-02-25] MEDS: CLOPIDOGREL BISULFATE 75 MG TABLET (FP) PO SCH (09:16)
[2022-02-25] MEDS: FAMOTIDINE 40 MG/5 ML ORAL SUSPENSION GT SCH ×2 (09:17→21:43)
[2022-02-25] MEDS: LOSARTAN POTASSIUM 50 MG TABLET GT SCH (09:17)
[2022-02-25] MEDS: FOLIC ACID 1 MG TABLET (FP) GT SCH (09:17)
[2022-02-25] MEDS: ACETAMINOPHEN 650 MG/20.3 ML ORAL SOLUTION (CUPS) GT PRN ×2 (10:54→17:45)
[2022-02-25] MEDS: MIRTAZAPINE 15 MG TABLET (FP) GT SCH (21:41)
[2022-02-25] MEDS: ATORVASTATIN CA 10 MG TABLET (FP) PO SCH (21:42)
[2022-02-26] MEDS: AMINO ACIDS 4.25%/D5W 1,000 ML IV SCH (00:18)
[2022-02-26] MEDS: MEROPENEM 1 GM in DEXTROSE 5%-WATER 100 ML IVPB SCH ×3 (02:18→18:13)
[2022-02-26] MEDS: POLYETHYLENE GLYCOL (HEALTHYLAX) 3350 17 GM PACKET GT SCH ×3 (06:30→22:01)
[2022-02-26] MEDS: LEVOTHYROXINE SODIUM 100 MCG 5 ML VIAL IVPUSH SCH (06:30)
[2022-02-26] MEDS: ALBUTEROL SO4 2.5/IPRATROPIUM 0.5 INH SOL 3 ML VIAL.NEB. NEB SCH ×4 (07:55→20:30)
[2022-02-26] MEDS: LOSARTAN POTASSIUM 50 MG TABLET GT SCH (10:30)
[2022-02-26] MEDS: FOLIC ACID 1 MG TABLET (FP) GT SCH (10:30)
[2022-02-26] MEDS: SERTRALINE HCL 50 MG TABLET (FP) GT SCH (10:30)
[2022-02-26] MEDS: CLOPIDOGREL BISULFATE 75 MG TABLET (FP) PO SCH (10:30)
[2022-02-26] MEDS: FAMOTIDINE 40 MG/5 ML ORAL SUSPENSION GT SCH ×2 (10:31→22:01)
[2022-02-26] MEDS: ACETAMINOPHEN 650 MG/20.3 ML ORAL SOLUTION (CUPS) GT PRN (15:33)
[2022-02-26] MEDS ORDERED: oxyCODONE HCL 5 MG TABLET GT ONE (17:16)
[2022-02-26] MEDS: MIRTAZAPINE 15 MG TABLET (FP) GT SCH (22:01)
[2022-02-26] MEDS: ATORVASTATIN CA 10 MG TABLET (FP) GT SCH (22:02)
[2022-02-27] MEDS: MEROPENEM 1 GM in DEXTROSE 5%-WATER 100 ML IVPB SCH ×3 (02:40→18:30)
[2022-02-27] MEDS: POLYETHYLENE GLYCOL (HEALTHYLAX) 3350 17 GM PACKET GT SCH ×3 (05:58→22:16)
[2022-02-27] MEDS: LEVOTHYROXINE SODIUM 100 MCG 5 ML VIAL IVPUSH SCH (06:00)
[2022-02-27] MEDS: ALBUTEROL SO4 2.5/IPRATROPIUM 0.5 INH SOL 3 ML VIAL.NEB. NEB SCH ×4 (08:54→20:30)
[2022-02-27] MEDS: FOLIC ACID 1 MG TABLET (FP) GT SCH (09:46)
[2022-02-27] MEDS: LOSARTAN POTASSIUM 50 MG TABLET GT SCH ×2 (09:46→14:54)
[2022-02-27] MEDS: CLOPIDOGREL BISULFATE 75 MG TABLET (FP) GT SCH (09:46)
[2022-02-27] MEDS: SERTRALINE HCL 50 MG TABLET (FP) GT SCH (09:46)
[2022-02-27] MEDS: FAMOTIDINE 40 MG/5 ML ORAL SUSPENSION GT SCH ×2 (09:48→22:18)
[2022-02-27] MEDS: ACETAMINOPHEN 650 MG/20.3 ML ORAL SOLUTION (CUPS) GT PRN (22:16)
[2022-02-27] MEDS: MIRTAZAPINE 15 MG TABLET (FP) GT SCH (22:17)
[2022-02-27] MEDS: ATORVASTATIN CA 10 MG TABLET (FP) GT SCH (22:17)
[2022-02-28] MEDS: MEROPENEM 1 GM in DEXTROSE 5%-WATER 100 ML IVPB SCH ×2 (02:23→10:39)
[2022-02-28] MEDS: ACETAMINOPHEN 650 MG/20.3 ML ORAL SOLUTION (CUPS) GT PRN (05:46)
[2022-02-28] MEDS: POLYETHYLENE GLYCOL (HEALTHYLAX) 3350 17 GM PACKET GT SCH ×3 (05:47→22:28)
[2022-02-28] MEDS: LEVOTHYROXINE SODIUM 100 MCG 5 ML VIAL IVPUSH SCH (05:59)
[2022-02-28] MEDS: ALBUTEROL SO4 2.5/IPRATROPIUM 0.5 INH SOL 3 ML VIAL.NEB. NEB SCH ×4 (08:57→21:33)
[2022-02-28] MEDS: FAMOTIDINE 40 MG/5 ML ORAL SUSPENSION GT SCH ×2 (10:39→22:28)
[2022-02-28] MEDS: FOLIC ACID 1 MG TABLET (FP) GT SCH (10:39)
[2022-02-28] MEDS: CLOPIDOGREL BISULFATE 75 MG TABLET (FP) GT SCH (10:39)
[2022-02-28] MEDS: SERTRALINE HCL 50 MG TABLET (FP) GT SCH (10:40)
[2022-02-28 11:59] LABS: HEMATOCRIT 28.6 % (35.4-49); HEMOGLOBIN 9.5 GM/dL (11.7-16.9); MCH 30.6 pg (25.7-33.7); MCHC 33.4 g/dl (32.0-35.9); MEAN CELL VOLUME 91.8 fl (80-96); MEAN PLT VOLUME 8.3 fl (7.5-11.1); PLATELET COUNT 267 10^3/uL (134-434); RBC 3.11 M/mm3 (4.00-5.60); WHITE BLOOD COUNT 4.6 K/mm3 (4.0-10.0)
[2022-02-28] MEDS: LOSARTAN POTASSIUM 50 MG TABLET GT SCH (12:27)
[2022-02-28 12:30] LABS: CALCIUM 8.1 mg/dL (8.5-10.1)
[2022-02-28 12:31] LABS: ALBUMIN 1.7 g/dl (3.4-5.0); BLOOD UREA NITROGEN 28.3 mg/dL (7-18)
[2022-02-28 12:33] LABS: CREATININE 0.3 mg/dL (0.55-1.3)
[2022-02-28 12:35] LABS: BILIRUBIN,TOTAL 0.3 mg/dL (0.2-1); TOT PROT 5.3 g/dl (6.4-8.2)
[2022-02-28] MEDS: ATORVASTATIN CA 10 MG TABLET (FP) GT SCH (22:28)
[2022-02-28] MEDS: MIRTAZAPINE 15 MG TABLET (FP) GT SCH (22:28)
[2022-03-01] MEDS ORDERED: ACETAMINOPHEN 650 MG/20.3 ML ORAL SOLUTION (CUPS) GT ONE (03:05)
[2022-03-01] MEDS: LEVOTHYROXINE SODIUM 100 MCG 5 ML VIAL IVPUSH SCH (06:18)
[2022-03-01] MEDS: POLYETHYLENE GLYCOL (HEALTHYLAX) 3350 17 GM PACKET GT SCH ×3 (06:23→21:55)
[2022-03-01] MEDS: ALBUTEROL SO4 2.5/IPRATROPIUM 0.5 INH SOL 3 ML VIAL.NEB. NEB SCH ×4 (08:49→21:10)
[2022-03-01 10:53] LABS: BASO % 0.7 % (0-2.0); EOS % 3.8 % (0-4.5); HEMATOCRIT 30.6 % (35.4-49); LYMPH % 9.2 % (8-40); MCH 30.1 pg (25.7-33.7); MCHC 32.8 g/dl (32.0-35.9); MEAN CELL VOLUME 91.8 fl (80-96); MEAN PLT VOLUME 8.5 fl (7.5-11.1); MONO % 12.6 % (3.8-10.2); NEUT % 73.7 % (42.8-82.8); PLATELET COUNT 280 10^3/uL (134-434); RBC 3.33 M/mm3 (4.00-5.60); RDW 18.1 % (11.9-15.9); WHITE BLOOD COUNT 4.2 K/mm3 (4.0-10.0)
[2022-03-01 11:14] LABS: CALCIUM 8.4 mg/dL (8.5-10.1)
[2022-03-01 11:15] LABS: ALBUMIN 1.7 g/dl (3.4-5.0)
[2022-03-01 11:18] LABS: CREATININE 0.3 mg/dL (0.55-1.3)
[2022-03-01 11:20] LABS: BILIRUBIN,TOTAL 0.3 mg/dL (0.2-1); TOT PROT 5.4 g/dl (6.4-8.2)
[2022-03-01] MEDS: SERTRALINE HCL 50 MG TABLET (FP) GT SCH (11:29)
[2022-03-01] MEDS: FAMOTIDINE 40 MG/5 ML ORAL SUSPENSION GT SCH (11:30)
[2022-03-01] MEDS: CLOPIDOGREL BISULFATE 75 MG TABLET (FP) GT SCH (11:30)
[2022-03-01] MEDS: FOLIC ACID 1 MG TABLET (FP) GT SCH (11:30)
[2022-03-01] MEDS: LOSARTAN POTASSIUM 50 MG TABLET GT SCH (11:30)
[2022-03-01] MEDS: oxyCODONE HCL 5 MG TABLET PO PRN ×2 (14:41→21:54)
[2022-03-01] MEDS: MIRTAZAPINE 15 MG TABLET (FP) GT SCH (21:55)
[2022-03-02] MEDS: LEVOTHYROXINE SODIUM 100 MCG 5 ML VIAL IVPUSH SCH (06:22)
[2022-03-02] MEDS: POLYETHYLENE GLYCOL (HEALTHYLAX) 3350 17 GM PACKET GT SCH ×3 (06:32→21:50)
[2022-03-02 07:53] LABS: BASO % 0.6 % (0-2.0); HEMATOCRIT 29.2 % (35.4-49); HEMOGLOBIN 9.7 GM/dL (11.7-16.9); LYMPH % 7.8 % (8-40); MCH 30.5 pg (25.7-33.7); MCHC 33.1 g/dl (32.0-35.9); MEAN CELL VOLUME 91.9 fl (80-96); MEAN PLT VOLUME 8.9 fl (7.5-11.1); MONO % 11.3 % (3.8-10.2); NEUT % 76.3 % (42.8-82.8); PLATELET COUNT 243 10^3/uL (134-434); RBC 3.18 M/mm3 (4.00-5.60); RDW 17.9 % (11.9-15.9); WHITE BLOOD COUNT 4.2 K/mm3 (4.0-10.0)
[2022-03-02 08:20] LABS: INR 1.03 (0.83-1.09); PROTHROMBIN TIME (PATIENT) 11.9 SEC (9.7-13.0)
[2022-03-02 08:24] LABS: ALBUMIN 1.8 g/dl (3.4-5.0)
[2022-03-02 08:28] LABS: BILIRUBIN,DIRECT 0.2 mg/dL (0.0-0.2)
[2022-03-02] MEDS: AMINO ACIDS/PROTEIN HYDROLYS 30 ML LIQUID.PKT PEG SCH (08:28)
[2022-03-02 08:30] LABS: BILIRUBIN,TOTAL 0.6 mg/dL (0.2-1); TOT PROT 5.2 g/dl (6.4-8.2)
[2022-03-02] MEDS: ALBUTEROL SO4 2.5/IPRATROPIUM 0.5 INH SOL 3 ML VIAL.NEB. NEB SCH ×4 (08:55→20:58)
[2022-03-02] MEDS: LOSARTAN POTASSIUM 50 MG TABLET GT SCH (10:24)
[2022-03-02] MEDS: SERTRALINE HCL 50 MG TABLET (FP) GT SCH (10:24)
[2022-03-02] MEDS: CLOPIDOGREL BISULFATE 75 MG TABLET (FP) GT SCH (10:24)
[2022-03-02] MEDS: FOLIC ACID 1 MG TABLET (FP) GT SCH (10:24)
[2022-03-02] MEDS: oxyCODONE HCL 5 MG TABLET PO PRN ×2 (11:10→18:23)
[2022-03-02] MEDS: MIRTAZAPINE 15 MG TABLET (FP) GT SCH (21:50)
[2022-03-03] MEDS: POLYETHYLENE GLYCOL (HEALTHYLAX) 3350 17 GM PACKET GT SCH ×2 (05:32→14:47)
[2022-03-03] MEDS: LEVOTHYROXINE SODIUM 100 MCG 5 ML VIAL IVPUSH SCH ×2 (06:05→07:37)
[2022-03-03] MEDS: oxyCODONE HCL 5 MG TABLET PO PRN (14:47)
[2022-03-03] MEDS: AMINO ACIDS/PROTEIN HYDROLYS 30 ML LIQUID.PKT PEG SCH (14:47)
[2022-03-03] MEDS: FOLIC ACID 1 MG TABLET (FP) GT SCH (14:48)
[2022-03-03] MEDS: LOSARTAN POTASSIUM 50 MG TABLET GT SCH (14:48)
[2022-03-03] MEDS: CLOPIDOGREL BISULFATE 75 MG TABLET (FP) GT SCH (14:48)
[2022-03-03] MEDS: SERTRALINE HCL 50 MG TABLET (FP) GT SCH (14:48)
[2022-03-03 18:03] VITALS: BP 138/70; PULSE 70; RESP 20; TEMP 98.7
== END 2022-03-03 18:12 | DRG 207 ==
LOC: JER 06:29 → JERBED 08:46 → J5S 21:29
PROVIDERS: ADMIT Family Medicine; ATTEND Family Medicine
PROC: 5A1955Z Respiratory Ventilation, Greater than 96 Consecutive Hours (ICD-10-PCS; principal; 2022-02-13)
PROC: 0D2DXUZ Change Feeding Device in Lower Intestinal Tract, External Approach (ICD-10-PCS; 2022-02-23)
DX: J95.851 Ventilator associated pneumonia (principal); J96.21 Acute and chronic respiratory failure with hypoxia; I69.351 Hemiplegia and hemiparesis following cerebral infarction affecting right dominant side; I24.8 Other forms of acute ischemic heart disease; N39.0 Urinary tract infection, site not specified; K56.699 Other intestinal obstruction unspecified as to partial versus complete obstruction; T85.528A Displacement of other gastrointestinal prosthetic devices, implants and grafts, initial encounter; I10 Essential (primary) hypertension; E03.9 Hypothyroidism, unspecified; E78.5 Hyperlipidemia, unspecified; F31.9 Bipolar disorder, unspecified; K74.60 Unspecified cirrhosis of liver; R00.1 Bradycardia, unspecified; D72.829 Elevated white blood cell count, unspecified; R91.1 Solitary pulmonary nodule; K59.00 Constipation, unspecified; G89.4 Chronic pain syndrome; E87.6 Hypokalemia; N40.0 Benign prostatic hyperplasia without lower urinary tract symptoms; B96.5 Pseudomonas (aeruginosa) (mallei) (pseudomallei) as the cause of diseases classified elsewhere; B96.1 Klebsiella pneumoniae [K. pneumoniae] as the cause of diseases classified elsewhere; Z85.89 Personal history of malignant neoplasm of other organs and systems; Z95.0 Presence of cardiac pacemaker; Z85.118 Personal history of other malignant neoplasm of bronchus and lung; Z87.11 Personal history of peptic ulcer disease; Z93.0 Tracheostomy status; Z86.19 Personal history of other infectious and parasitic diseases; Y84.8 Other medical procedures as the cause of abnormal reaction of the patient, or of later complication, without mention of misadventure at the time of the procedure
CPT/HCPCS: 0241U-QW; 36415; 36430; 49441; 71045-TC-FY; 71250-TC; 74176-TC; 76604-TC; 76705-TC; 78226-TC; 80053; 80076; 81003; 82272; 82550; 82553; 82803; 82962; 82977; 83540; 83550; 83605; 83735; 84100; 84443; 84484; 85025; 85027; 85610; 85730; 86850; 86900; 86901; 86922; 87040; 87070; 87077; 87086; 87186; 87205; 87522; 87899; 93005; 93010; 94002; 94640; 99285-25; A9537; C9803-CS; J1644; J1756; P9058; U0003; U0005